=== PATIENT | female | born 1935 | race Caucasian/White ===

== ENCOUNTER 2017-08-27 13:18 | Inpatient (IN) | payer OTHER, MEDICARE ==
--- NOTE | 2017-08-27 13:56 | SOAPPROG ---
BREA Progress Note Assessment/Plan: Assessment: Plan: 08/27/17 13:54 symptomatic anemia, hgb 6.8, Stent placed 1 month ago. Will admit for obs, for transfusion of 2 units prbc's RLE Venous doppler performed in office with did not show RLE DVT. Eliquis will be stopped. Continue ASA and Plavix in place of Brilinta Subjective: Patient reported melena on visit 2 days ago. This had been going on for 2 weeks (estimated). She has been on ASA 81 mg, Brilinta 90 mg BID and Eliquis. Eliquis held, no further melena in 24 hours, but near syncope and SOB. Hgb 6.8 Stent placed in late Jun/early Jul of this year Objective: Pale pleasant patient nearly collapsed in office this am. ICD10 Worksheet Patient Problems: Problems Problem Status Onset Symptomatic anemia Acute - ICD10 Problem Qualifiers (1) Symptomatic anemia
[2017-08-27] MEDS ORDERED: ONDANSETRON DISINTEGRATING 4 MG TAB PO PRN (13:58)
[2017-08-27] MEDS ORDERED: ACETAMINOPHEN 325 MG TAB PO PRN (13:58)
[2017-08-27] MEDS ORDERED: ONDANSETRON 4 MG/2 ML VIAL IVP PRN (13:58)
[2017-08-27] MEDS ORDERED: NS 1,000 ML IV SCH (14:00)
[2017-08-27 15:59] LABS: INR 1.19 (0.83-1.16); PROTIME(PATIENT) 15.3 SEC (12.0-15.0)
--- NOTE | 2017-08-27 16:01 | CPEKG ---
Heart Rate: 95 RR Interval: 632 P-R Interval: 140 QRSD Interval: 122 QT Interval: 408 QTC Interval: 513 P Ravenel: 70 QRS Ravenel: 92 T Wave Ravenel: -49 EKG Severity - ABNORMAL ECG - EKG Impression: SINUS RHYTHM EKG Impression: LEFT BUNDLE BRANCH BLOCK Electronically Signed By: Jay Narayanan 27-Aug-2017 16:18:15
--- NOTE | 2017-08-27 19:12 | GHP ---
[f rep st] HISTORY AND PHYSICAL DATE OF ADMISSION: 08/27/2017 REASON FOR ADMISSION: Symptomatic anemia. HISTORY OF PRESENT ILLNESS: The patient is a 81-year-old female who presented to the office on with some sense of shortness of breath and black stool. A CBC was checked finding a hemoglobin of 7.2. She has been on aspirin and Brilinta due to recent stent placement approximately 1 month ago an d was put on Eliquis for suspected possible DVT involving her right lower extremity due to complicate d hospitalization while in [place]. She has come back to the [facility] to reacclimate to altitude prior to going home in [place] over t he next couple of days. Given her low hemoglobin, she was brought back into the office today. She d oes admit to shortness of breath and lightheadedness with standing. No chest pain or palpitations. She denies abdominal pain. She does have a long history of some level of reflux with prior history o f endoscopies. She has not had a black stool in the past 24 hours, but she has not had a bowel movem ent in that same period of time. She admits to a reduced appetite. She has no unusual food cravings . No unusual food aversions. Edema in her lower extremities has remained to be mild. She has no di screte right lower extremity pain. PAST MEDICAL HISTORY: Significant for stent placement either late June or early July of this year. She has been on aspirin and Brilinta for prevention of intrastent stenosis. Underlying athero sclerosis. A long history of some level of reflux symptomatology. Sleep apnea on CPAP therapy. ALLERGIES: No known drug allergies. CURRENT MEDICATIONS: Aspirin 81 mg daily, Brilinta 90 mg b.i.d., Niaspan 500 mg 2 tablets daily, vit edmondson D daily, Co Q10 daily, fish oil 3 capsules daily, aspirin mentioned above, K2 100 mcg daily, gar lic extract 600 mg capsules twice daily, Eliquis until yesterday was 2.5 twice a day. SURGICAL HISTORY: Recent stent placement, prior left ACL replacement, nothing else more recently. FAMILY HISTORY: Father from heart disease. SOCIAL HISTORY: Nonsmoker, nondrinker. Recent travel. Significant other travels with her. ALLERGIES: No known drug allergies. PHYSICAL EXAMINATION: VITAL SIGNS: Blood pressure 104/50, heart rate 95, saturation 91% on room air . Respiratory rate 16-20. GENERAL: Pleasant, pale female, somewhat hard of hearing. Palpebral con junctiva is pale. Oropharynx is benign. NECK: Without masses. LUNGS: Are clear bilaterally. No crackles, wheeze or congestion. HEART: Borderline tachy rhythm with 3/6 systolic murmur. ABDOMEN: Positive bowel sounds. Soft. Mild discomfort in the epigastric region. No guarding, rebound, or m asses. RECTAL: Exam is not performed. LOWER EXTREMITIES: Trace to 1+ edema right lower extremity. Slightly less edema left lower extremity. In office venous Doppler was performed which did not identify any evidence of right lower extremity c lotting phenomenon. Repeat hemoglobin was checked stat which was 6.8. Patient had a near syncopal e pisode while attempting to walk in the office from office exam room to the lab. ASSESSMENT: 1. Symptomatic anemia. Hemoglobin 6.8 in this 81-year-old female with a recent stent placement on m andatory anticoagulants. Will admit. Will transfuse 2 units packed red blood cells. Recheck CBC in the morning. 2. Recent stent placement. Continue aspirin and Plavix in lieu of the Brilinta given cost and she i s more than 1 month out from stent placement. 3. Some concern over possible thromboembolic evidence. She had a CTA of her chest at the [facility] which did not identify a clot. She had a DVT screening in our office today which did not i dentify clot. We will discontinue Eliquis at this point. 4. Reflux symptomatology. Will utilize b.i.d. proton pump inhibitor therapy. We will see how patisherri membreno feels in the morning and adjust therapy based on her results. /[id number]/MODL
[2017-08-27] MEDS: NIACIN ER 500 MG TAB.ER PO SCH (20:47)
[2017-08-27] MEDS: METOPROLOL SUCCINATE XR 25 MG TAB PO SCH (20:47)
[2017-08-27] MEDS: PANTOPRAZOLE SODIUM 40 MG TAB PO SCH (20:49)
[2017-08-28 05:42] LABS: PLATELET COUNT 254 10^3/uL (150-400)
[2017-08-28] MEDS: CLOPIDOGREL BISULFATE 75 MG TAB PO SCH (08:24)
[2017-08-28] MEDS: NIACIN ER 500 MG TAB.ER PO SCH ×2 (08:24→20:15)
[2017-08-28] MEDS: ASPIRIN 81 MG CHEWABLE TAB PO SCH (08:24)
[2017-08-28] MEDS: PANTOPRAZOLE SODIUM 40 MG TAB PO SCH ×3 (08:24→20:14)
[2017-08-28] MEDS: METOPROLOL SUCCINATE XR 25 MG TAB PO SCH ×3 (08:24→20:15)
[2017-08-28] MEDS: OMEGA-3 FATTY ACIDS 1,000 MG CAP PO SCH (08:24)
[2017-08-28] MEDS ORDERED: FUROSEMIDE 40 MG TAB PO ONE (08:50)
[2017-08-28] MEDS ORDERED: Herbals/Supplements -Info Only PO SCH (09:00)
--- NOTE | 2017-08-28 09:21 | SOAPPROG ---
BREA Progress Note Assessment/Plan: Assessment: Plan: 08/27/17 13:54 symptomatic anemia, hgb 6.8, Stent placed 1 month ago. Will admit for obs, for transfusion of 2 units prbc's RLE Venous doppler performed in office with did not show RLE DVT. Eliquis will be stopped. Continue ASA and Plavix in place of Brilinta 08/28/17 09:20 symptomatic anemia--anemia corrected but patient does not feel better. Will expand work up. Echo, labs, further eval when results are available. Subjective: Carol is more short of breath despite her hgb improving. She is uncomfortable with breathing and feels a bit tense. She admits to some chest pressure with breathing. No new GI complaints. 2 BM's, she is not sure if that were black. No gut pain, appetite remains to be reduced. Objective: Vital Signs Temp Pulse Resp BP Pulse Ox 36.6 C 105 H 20 128/64 H 95 08/28/17 08:29 08/28/17 08:29 08/28/17 08:29 08/28/17 08:29 08/28/17 08:54 Laboratory Results 08/28/17 05:21 08/27/17 08/28/17 08/29/17 05:59 05:59 05:59 Intake Total 1150 Balance 1150 PT 15.3 SEC (12.0-15.0) H 08/27/17 15:35 INR 1.19 (0.83-1.16) H 08/27/17 15:35 Gen: pleasant, mildly uncomfortable HEENT: no JVPE Lungs: mild basilar crackles, dry cough Heart: Tachy rate around 100 3/6 JEAN MARIE--stable Abd + bs soft no gross masses LE's stable mild edema Hgb 6.8 to 10 after 2 untis PRBC's ICD10 Worksheet Patient Problems: Problems Problem Status Onset Symptomatic anemia Acute - ICD10 Problem Qualifiers (1) Symptomatic anemia
[2017-08-28] MEDS: ATORVASTATIN CALCIUM 20 MG TAB PO SCH (11:22)
--- NOTE | 2017-08-28 13:23 | ECHO ---
[email or web address] [address] [address] Main: [phone] Fax: Transthoracic Echocardiogram Name: FERMIN ALFARO MR#: [id number] Study Date: 08/28/2017 Study Time: 11:01 AM Date of : 1935 Age: 81 year(s) Height: 154.9 cm (61 in.) Weight: 79.38 kg (175 lb.) BSA: 1.78 m2 Gender: Female Examination: Echo Indication: Shortness of breath, Coronary artery disease, recent stent, 3/6 JEAN MARIE Image Quality: Adequate Contrast: Requested by: Edward Jay Jay BP: 128 mmHg/64 mmHg Heart Rate: Rhythm: Normal sinus rhythm Indication: Shortness of breath, Coronary artery disease, recent stent, 3/6 JEAN MARIE Procedure Staff Property Technician: Milena Hines RDCS Reading Physician: Alexis Butt MD Requesting Provider: Conclusions: Normal size left ventricle. Mild concentric LV hypertrophy. Normal global systolic LV function. EF is 65 %. Grade 2 diastolic dysfunction (pseudonormalized LV filling pattern). Elevated left ventricular filling pressures.. The left atrium is mildly dilated. Moderate mitral valve leaflet calcification is present. Severe mitral annular calcification. Moderate mitral valve regurgitation is present. Severe mitral valve stenosis is present. Moderate aortic cusp calcification is present. Mild aortic valve regurgitation is present. Moderate calcific aortic valve stenosis. Mean aortic valve gradient 20. Severe tricuspid regurgitation is present. Right ventricular systolic pressure measures 70mmHg. Measurements: Chambers Valvular Assessment AV/MV Valvular Assessment TV/PV Normal Normal Normal Name Value Range Name Value Range Name Value Range IVSd (2D): 1.1 cm (0.6 cm-1.1 AV Vmax: 2.73 m/s (1 m/s-1.7 TR Vmax: 3.88 mm/s ( - ) cm) m/s) TR PGmax: 60 mmHg ( - ) LVDd (2D): 3.9 cm (3.9 cm-5.3 AV maxP mmHg ( - ) syst. PAP: 70 mmHg ( - ) cm) AV meanP mmHg ( - ) PV Vmax: 0.65 m/s (0.6 m/s-0.9 LVDs (2D): 2.9 cm (2.1 cm-4 LVOT Vmax: 0.98 m/s (0.7 m/s-1.1 m/s) cm) m/s) PV PGmax: 2 mmHg ( - ) LVPWd (2D): 1.1 cm ( - ) JC (Vmax): 1.1 cm2 ( - ) Patient: FERMIN ALFARO Study Date: 08/28/2017 Page 1 of 2 11:01 AM LVOTd 2.0 cm 2.0 cm mm JC (VTI): 1.2 cm ( - ) LVEF (BP): 65 % (>=55 %) AR (PHT): 326 ms ( - ) RVDd(2D): 3.5 cm (1.9 cm-3.8 MV maxP mmHg ( - ) cmmm) MV meanP mmHg ( - ) MV PHT: 0.062 s ( - ) MVA (Vmax): 1.5 m/s ( - ) MVA (PHT): 3.5 s ( - ) Continued Measurements: Chambers Valvular Assessment AV/MV Valvular Assessment TV/PV Name Value Name Value Name Value LADs Lon.7 cm MV VTI: 47.70 cm CVP (est.): 10 mmHg LA Area: 21.1 cm2 LA Volume: 71 ml LA Volume Index: 39.9 ml/m2 TAPSE: 2.2 cm RA Area: 14.0 cm2 Findings: Left Ventricle: Normal size left ventricle. Mild concentric LV hypertrophy. Normal global systolic LV function. EF is 65 %. There is paradoxic septal motion suggestive of bundle branch block, paced cardiac rhythm, or prior cardiac surgery. Grade 2 diastolic dysfunction (pseudonormalized LV filling pattern). Elevated left ventricular filling pressures.. Right Ventricle: Normal size right ventricle. Normal RV function. Left Atrium: The left atrium is mildly dilated. Right Atrium: The right atrium is normal in size. Mitral Valve: Moderate mitral valve leaflet calcification is present. Severe mitral annular calcification. There is moderate thickening of the mitral valve leaflets. Moderate mitral valve regurgitation is present.Severe mitral valve stenosis is present. Mean mitral valve gradient 11mmHg. Aortic Valve: Aortic valve is not well visualized. Moderate aortic cusp calcification is present. Mild aortic valve regurgitation is present. Moderate calcific aortic valve stenosis. Mean aortic valve gradient 20. Tricuspid Valve: The tricuspid valve is normal in appearance and function. Severe tricuspid regurgitation is present. Right ventricular systolic pressure measures 70mmHg. The pulmonary artery pressure is severely increased. Pulmonic Valve: The pulmonic valve is normal in appearance and function. Mild pulmonic valve regurgitation is noted. Pericardium: No pericardial effusion. (No Signature Object) Patient: FERMIN ALFARO Study Date: 08/28/2017 Page 2 of 2 11:01 AM [id number]
--- NOTE | 2017-08-28 15:23 | PDMN ---
Medical Necessity Medical necessity: Change to IP, as of 08/28/17, per PA; los >2 mn for ongoing management of symptomatic anemia possibly r/t issue w/valve; admit for further workup/monitoring; hx recent stent placement; per progress note & order 08/28/17
--- NOTE | 2017-08-28 16:13 | ASMTCMCOM ---
CM Note CM Note Notes: Pt admitted for low hemoblin. Anticipate pt will have no DC needs. CM available if needs change, Date Signed: 08/28/2017 04:12 PM Electronically Signed By:Edelmira Soto LCSW
[2017-08-28] MEDS: LISINOPRIL 2.5 MG TAB PO SCH (19:29)
[2017-08-28] MEDS: SPIRONOLACTONE 25 MG TAB PO SCH (19:30)
[2017-08-29 05:08] LABS: PLATELET COUNT 242 10^3/uL (150-400)
[2017-08-29] MEDS: METOPROLOL SUCCINATE XR 25 MG TAB PO SCH ×2 (08:28→21:37)
[2017-08-29] MEDS: CLOPIDOGREL BISULFATE 75 MG TAB PO SCH (08:29)
[2017-08-29] MEDS: SPIRONOLACTONE 25 MG TAB PO SCH (08:29)
[2017-08-29] MEDS: ATORVASTATIN CALCIUM 20 MG TAB PO SCH (08:29)
[2017-08-29] MEDS: PANTOPRAZOLE SODIUM 40 MG TAB PO SCH ×2 (08:29→21:38)
[2017-08-29] MEDS: NIACIN ER 500 MG TAB.ER PO SCH ×2 (08:29→21:38)
[2017-08-29] MEDS: LISINOPRIL 2.5 MG TAB PO SCH (08:29)
[2017-08-29] MEDS: OMEGA-3 FATTY ACIDS 1,000 MG CAP PO SCH (08:29)
[2017-08-29] MEDS: ASPIRIN 81 MG CHEWABLE TAB PO SCH (08:29)
--- NOTE | 2017-08-29 09:31 | SOAPPROG ---
BREA Progress Note Assessment/Plan: Assessment: Cardiology consultation performed and dictated. See dictation for full thoughts. 81 y/o woman with longstanding heart murmur. Hospitalized in [place] in Jun 2017 and reportedly got stent to LAD and started on ASA and Brilinta. Admitted 36hrs ago with melena and UGI bleed. Now after some PRBCs feeling better. Chronically has MOON at one block. Echo here shows LVEF 65% with moderate diastolic dysfunction, moderate , mild AI, severe MS, moderate MR and severe TR. 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 I wonder if her chronic MOON at one block is related to her valvular issues. REC: 1)start Lasix 20mg PO qam. 2)rest of meds without changes. 3)consider GI consult this hospitalization with repeat EGD endoscopy. 4)I would recommend rechecking echo in 5-6 weeks after GI bleed settles down and if still severe MS, consider CT surgery consult for considering of BIOAVR, BIOMVR and TV repair in 2-3 months electively. 5)get records from [facility] to see cath report and any echos done there. Thanks. Will follow with you. 08/29/17 09:26 Objective: Vital Signs Temp Pulse Resp BP Pulse Ox 36.8 C 101 H 16 122/77 H 96 08/29/17 08:00 08/29/17 08:28 08/29/17 08:00 08/29/17 08:29 08/29/17 08:00 Laboratory Results 08/29/17 04:37 08/29/17 04:37 08/28/17 08/29/17 08/30/17 05:59 05:59 05:59 Intake Total 1150 725 Output Total 1250 Balance 1150 -525 PT 15.3 SEC (12.0-15.0) H 08/27/17 15:35 INR 1.19 (0.83-1.16) H 08/27/17 15:35 ICD10 Worksheet Patient Problems: Problems Problem Status Onset Symptomatic anemia Acute
--- NOTE | 2017-08-29 10:04 | GCON ---
[f rep st] CONSULTATION CARDIOLOGY CONSULTATION DATE OF CONSULTATION: 08/29/2017 REASON FOR CONSULTATION: Evaluate woman with recent stent to the LAD and echo showing triple valve d ysfunction in setting of upper GI bleed. HISTORY OF PRESENT ILLNESS: I was asked by Dr. Job Cheng to consult for the above reasons. The patient is a 81-year-old woman who lives half the year in [place], [place] and half the year in [facility]. She reports she has known about a heart murmur for many years, but had no cardiac problems until June of this year while living in [place], came in with pneumonia, but then was found to have a n on-Q-wave LA and got a stent to her LAD. No other information regarding that hospitalization is know n. She was started on aspirin and Brilinta and came back to [place] and was admitted 36 hours ago w ith near-syncope and paleness and an upper GI bleed after several days of melena. An echo here in [facility] demonstrates an LVEF of 65% with moderate diastolic dysfunction with moderate aortic steno sis and mild aortic insufficiency. She has severe mitral stenosis with moderate mitral regurgitation and severe tricuspid insufficiency with a PFO noted an estimated PA pressure of 70 mmHg. She denies any knowledge of having rheumatic fever as a young woman. Chronically, she can walk about a block b efore becoming short of breath. She reports no palpitations or chest pain. She has had 1 non black bowel movement the last 24 hours and is feeling better. PAST MEDICAL HISTORY: Coronary artery disease with LAD stent in June of 2017 in [place]. GERD. S leep apnea. Previous remote non-Hodgkin's lymphoma with neck mass removed and radiation only to her neck and newly diagnosed multivalvular abnormalities as per HPI. PAST SURGICAL HISTORY: Knee replacement. CURRENT MEDICATIONS: Aspirin 81 mg per day, Plavix 75 mg per day, atorvastatin 20 mg per day, lisino pril 2.5 mg per day, metoprolol-XL 25 mg twice daily, Aldactone 25 mg per day, 1 dose of Lasix 40 mg p.o. ALLERGIES: No known drug allergies. SOCIAL HISTORY: Patient lives with her significant other in [place] and [place], [place]. She denie s tobacco use or active alcohol intake. FAMILY HISTORY: Positive for premature coronary artery disease. REVIEW OF SYSTEMS: The patient reports no hemoptysis or fevers or chills. She has no syncope. Rest of 10-point review of systems is negative. PHYSICAL EXAMINATION: VITAL SIGNS: Afebrile, pulse 100, blood pressure 122/77, respirations 22, weig ht 79.7 kg. GENERAL: In general a normal-appearing woman in no acute distress without chest pain or using excess respiratory muscles. EYES: Pupils equal and reactive to light. ENT: Oral mucosa with no cyanosis. NECK: Jugular venous pressure to 8 cm. Carotid pulses 2+ bilaterally with no obvious bruit s. LUNGS: Clear to auscultation bilaterally without rales, rhonchi, or wheezing. HEART: Slightly tachycardic. Normal rhythm, 2/6 systolic murmur. No S3 is heard. ABDOMINAL EXAM: Soft and nontender . No guarding or rebound. EXTREMITIES: Trace pretibial edema bilaterally. MUSCULOSKELETAL: No scolio sis. SKIN: No bleeding or cyanosis. NECK: No nuchal rigidity. NEURO: Normal affect and mood. DIAGNOSTIC STUDIES: Normal sinus rhythm with left bundle branch block. LABORATORY STUDIES: White count 8.0, hematocrit 29, platelets 242,000, MCV 97. Sodium 142, potassiu m 4.2, chloride 106, bicarb 28, BUN 15, creatinine 0.8, glucose 95. NT proBNP level 524. Troponin n egative. INR 1.19. IMPRESSION: 81-year-old woman with clinically resolving upper gastrointestinal bleed, probably secon travis to the addition of Brilinta and aspirin. She does have severe mitral stenosis and moderate aort ic stenosis and severe tricuspid insufficiency. She appears euvolemic, however, and not having recur rent angina. RECOMMENDATIONS: 1. Would start Lasix 20 mg per day. 2. Rest of medications without change. 3. Consider GI consult with repeat EGD endoscopy this hospitalization. 4. Ideally, I would like to let her go home and get an echo in 5 to 6 weeks and reassess her LV func tion and valvular function not in the setting of hypovolemia and GI bleed. If she does still have si gnificant MS and TR, would in the next 6 to 7 weeks have her see a heart surgeon for consideration of bioprosthetic AVR, bioprosthetic MVR and tricuspid valve repair. 5. Would get records from her [place] hospitalization to better see what they did. Thank you for allowing me to participate in the care of Ms. Carol Goyal. Cardiology will follow a long closely with you during this hospitalization. /[id number]/MODL
[2017-08-29] MEDS: FUROSEMIDE 20 MG TAB PO SCH (10:17)
--- NOTE | 2017-08-29 11:27 | SOAPPROG ---
BREA Progress Note Assessment/Plan: Assessment: Plan: 08/29/17 11:29 Anemia: likey related to UGI bleed. Has upper endoscopy about every 2 years due to reflux. Last one about a year ago, normal per pt. Given decrease in her hgb despite protonix 40mg bid and diuresis with negative fluid balance, will ask GI to see her. CAD: stable, s/p stent about a month ago. Valvular heart disease: May be source of MOON, and is currently doing much better following diuresis. BNP only mildly elevated. Cardiology would prefer to reassess echo after pt stable from GI bleed. As she is symptomatically much improved, this seems reasonable. Subjective: Feeling much better today. Has been ambulating around the unit without SOB. Denies any further melena, but hasn't been looking closely. Hgb down to 9.2 today, following transfusion with initial increase to 10. Had echo yesterday due to ongoing sx and has significant valvular disease. Has been seen by cardiology; appreciate cardiology input. Objective: Vital Signs Temp Pulse Resp BP Pulse Ox 36.8 C 101 H 16 122/77 H 96 08/29/17 08:00 08/29/17 08:28 08/29/17 08:00 08/29/17 08:29 08/29/17 08:00 Laboratory Results 08/29/17 04:37 08/29/17 04:37 08/28/17 08/29/17 08/30/17 05:59 05:59 05:59 Intake Total 1150 725 Output Total 1250 Balance 1150 -525 PT 15.3 SEC (12.0-15.0) H 08/27/17 15:35 INR 1.19 (0.83-1.16) H 08/27/17 15:35 General: comfortable appearing, NAD Lungs: clear bilaterally CV: RRR with 2/6 systolic murmur Abdomen: +bowel sounds, soft, NT Extremities: 1-2+ pitting edema ICD10 Worksheet Patient Problems: Problems Problem Status Onset Symptomatic anemia Acute
--- NOTE | 2017-08-29 13:34 | GCON ---
[f rep st] CONSULTATION INPATIENT CONSULTATION NOTE. REQUESTING PHYSICIAN: Nayeli Arenas MD REASON FOR CONSULTATION: Melena and anemia. CHIEF COMPLAINT: Fatigue. HISTORY OF PRESENT ILLNESS: Briefly, Ms Goyal is a 81-year-old female with multiple medical problems including heart disease, heart failure, and valvular disease, who presented to the hospital on 08/27/2017 with symptomatic anemia. She was recently traveling in [place]. She reports she spent multiple days in multiple hospitals there working up symptoms. While traveling back to [place] , she described having multiple black bowel movements. Having described this to her primary care physician, she was asked to present to the emergency room for evaluation. In the ER, she was noted to have a fall in hematocrit and hemoglobin. This was accompanied by shortness of breath. She was admitted for management of symptomatic anemia and exacerbation of heart failure. Of note, prior to admission, she had been on aspirin as well as Brilinta and Eliquis for possible DVT complications of hospitalization in [place]. She reports no prior history of bleeding. She denies rectal bleeding. She reports prior history of melena. She believes she has had previous upper endoscopies to evaluate heartburn symptoms. She cannot recall when her last colonoscopy was, but she does not recall a history of cancer or polyps. Since being admitted to the hospital, she reports her bowel movements remain dark, but they are becoming more normal in color. With heart failure management, and transfusion, she reports that she has had improvement in her overall well- being. She is now ambulating without a significant amount of shortness of breath. PAST MEDICAL HISTORY: Includes cardiac stent, reflux, and sleep apnea for which she is on CPAP, as well as valvular heart disease. ALLERGIES: None. OUTPATIENT MEDICINES: Aspirin, Brilinta, Niaspan, Garlic, and Eliquis. PAST SURGICAL HISTORY: Includes cardiac stent placement and ACL repair. FAMILY HISTORY: Positive for heart disease. SOCIAL HISTORY: She does not drink or smoke. REVIEW OF SYSTEMS: A complete 10-point review of systems was undertaken with the patient and is negative except for the details described in the History of Present Illness. PHYSICAL EXAMINATION: GENERAL: This is an elderly female in no apparent distress. HEENT: Pupils are equal, round, AND reactive to light and accommodation. Sclerae nonicteric. Oropharynx is clear. NECK: Supple without lymphadenopathy. HEART: Regular with a 3/6 systolic murmur. ABDOMEN: Soft and nontender, with normoactive bowel sounds. LUNGS: clear to auscultation, bilateral rales inferiorly. EXTREMITIES: Free of cyanosis, clubbing. 1 to 2+ pitting edema bilaterally. NEUROLOGIC: Grossly nonfocal. PSYCH: Normal mood and affect. SKIN: Warm and dry without rash. LABORATORY TESTING: Hemoglobin of 9.2, hematocrit of 28.8, platelet count of 242. INR on admission was 1.2. Today, sodium of 142, potassium of 4.2, chloride of 106, bicarb of 28, BUN of 15, creatinine of 0.8. IMPRESSION AND RECOMMENDATIONS: The patient has had symptomatic anemia and melena in the setting of anticoagulation use. She had the onset of dark stools perhaps as long as 7-14 days ago. Her stools are now clearing. She is responding to anemia therapy with transfusion in accompaniment with congestive heart failure therapy and diuresis. The etiology for bleeding is uncertain. Given the melena, I suspect upper gastrointestinal source, such as gastric ulcer, or perhaps small bowel arteriovenous malformation. Colonic lesions are also possible. Given the severity of her bleeding presentation, resolving this differential diagnosis is important in order to help prevent subsequent future bleeding. At this time, I recommend she undergo upper endoscopy. She will be at high risk for conscious sedation, given her ongoing heart failure, obesity, anti- platelet use, and valvular heart disease. Will engage the services of the anesthesiologist to help with this procedure. If her upper endoscopy is negative, we may need to proceed with colonoscopy. Small bowel evaluation could ultimately be useful, as well, in the evaluation of obscure GI bleeding. Meanwhile, the patient should remain off anticoagulation therapy. In the setting of severe heart disease, it is okay for her to continue her anti- platelet therapies with aspirin and Plavix. While those therapies may increase the risk of interventions during gastrointestinal procedures, the relative risk of discontinuing those therapies in the setting of heart disease is not warranted. /[id number]/MODL MTDD
[2017-08-30 04:55] LABS: PLATELET COUNT 228 10^3/uL (150-400)
[2017-08-30] MEDS: LISINOPRIL 2.5 MG TAB PO SCH (08:57)
[2017-08-30] MEDS: METOPROLOL SUCCINATE XR 25 MG TAB PO SCH ×2 (08:57→22:41)
--- NOTE | 2017-08-30 08:59 | SOAPPROG ---
BREA Progress Note Assessment/Plan: Assessment: 81 y/o woman with longstanding heart murmur. Hospitalized in [place] in Jun 2017 and reportedly got stent to LAD and started on ASA and Brilinta. Admitted 36hrs ago with melena and UGI bleed. Now after some PRBCs feeling better. Chronically has MOON at one block. Echo here shows LVEF 65% with moderate diastolic dysfunction, moderate , mild AI, severe MS, moderate MR and severe TR. 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 I wonder if her chronic MOON at one block is related to her valvular issues. REC: 1)stop Lisinopril as some lowish BP's 2)rest of cardiac meds without changes. 3)EGD +/- colonoscopy today. 4)Probably home later tonight or tomorrow. 5)f/u [facility] in 5-6 weeks with echo same day to reassess LVEF, RVEF and vavular lesions. Consider CT surgery consultation for AVR, MVR and TV repair in 6-8 weeks after UGIB fully resolved. We'll call pt to arrange follow up. 08/30/17 08:56 Subjective: doing well with no cardiac complaints. Denies CP, palpitations, near syncope or PND. Ambulated two laps around nursing floor (300ft) without sx. 2-3 non- melenic bowel movts last 24hrs she reports. No abdominal pain. Objective: Vital Signs Temp Pulse Resp BP Pulse Ox 36.6 C 102 H 16 116/59 L 95 08/30/17 08:50 08/30/17 08:50 08/30/17 08:50 08/30/17 08:50 08/30/17 08:50 Laboratory Results 08/30/17 04:16 08/29/17 04:37 08/29/17 08/30/17 08/31/17 05:59 05:59 05:59 Intake Total 725 1050 Output Total 1250 450 100 Balance -525 600 -100 PT 15.3 SEC (12.0-15.0) H 08/27/17 15:35 INR 1.19 (0.83-1.16) H 08/27/17 15:35 Physical Exam - Physical Exam General Appearance: alert EENT: PERRL/EOMI Neck: non-tender Respiratory: lungs clear Cardiac/Chest: regular rate, rhythm, systolic murmur (3/6 JEAN MARIE. Loud P2 heard. No S3 heard.) Peripheral Pulses: 2+: carotid (R), carotid (L), femoral (R), femoral (L), dorsalis-pedis (R), dorsalis-pedis (L) Abdomen: non-tender, No rebound Skin: warm/dry Extremities: non-tender, No pedal edema Neuro/Psych: alert ICD10 Worksheet Patient Problems: Problems Problem Status Onset Symptomatic anemia Acute
--- NOTE | 2017-08-30 10:12 | SUROPNOTE ---
[facility] Operative Report - Surgery BRIEF GI EGD NOTE see full EGD report for details of exam Indication: melena, anemia Meds: per anesthesia Complications: none acutely Findings: 1. Esophagus - normal 2. Gastric - minimal gastritis 3. Duodenal - normal IMPRESSION/RECS: 1. Obscure GI bleeding - resolved - EGD showed no source of bleeding - need to resolve bleeding source prior to contemplating aggressive cardiac care [with possible anticoagulation need] - given EGD was without obvious bleeding source, recommend colonoscopy, and if negative, capsule endoscopy - clear liquids today, prep for colonoscopy tomorrow - if colonoscopy normal, can proceed with outpt capsule endoscopy - monitor H/H - will follow, call with questions
--- NOTE | 2017-08-30 10:12 | PDANEPAE ---
ANE History of Present Illness here for EGD ANE Past Medical History - Cardiovascular History Hx Chest Pain: Yes Hx Coronary Artery / Peripheral Vascular Disease: Yes Hx CHF / Valvular Disease: Yes - Pulmonary History Hx Oxygen in Use at Home: Yes O2 in Use at Home (L/minute): 2-4 Hx Sleep Apnea: Yes Sleep Apnea Screening Result - Last Documented: Positive - Endocrine History Hx Diabetes: No ANE Review of Systems Review of Systems: - Exercise capacity Exercise capacity: >=4 METS - Cardio Pulmonary Function Testing Transthoracic echocardiogram (TTE): 08/2017- EF 65% Mild MR, moderate /AR, severe TR ANE Patient History - Allergies Allergies/Adverse Reactions: No Known Allergies Allergy (Unverified 08/27/17 13:58) - Home Medications Home Medications: Aspirin [Aspirin 81mg (*)] 81 mg PO DAILY 08/27/17 [Last Taken Unknown] Clopidogrel Bisulfate [Plavix (*)] 75 mg PO DAILY 08/27/17 [Last Taken Unknown] Herbals/Supplements -Info Only 1 ea PO DAILY 08/27/17 [Last Taken Unknown] Metoprolol Succinate 12.5 mg PO BID 08/27/17 [Last Taken Unknown] Niacin ER [Niaspan 500 mg (*)] 500 mg PO BID 08/27/17 [Last Taken Unknown] [place]-3 Fatty Acids [Fish Oil 1000 mg (*)] 1,000 mg PO DAILY 08/27/17 [Last Taken Unknown] Omeprazole 20 mg PO DAILY 08/27/17 [Last Taken Unknown] - NPO status NPO Status: no food or drink >8 hours NPO Since - Liquids (Date): 08/30/17 NPO Since - Liquids (Time): 00:00 NPO Since - Solids (Date): 08/29/17 NPO Since - Solids (Time): 18:00 - Anes Hx Anes Hx: no prior problems - Smoking Hx Smoking Status: Former smoker - Alcohol Use Alcohol Use: Occasionally - Family Anes Hx Family Anes Hx: none ANE Labs/Vital Signs - Labs Result Diagrams: 08/30/17 04:16 08/29/17 04:37 - Vital Signs Blood Pressure: 100/50 Heart Rate: 94 Respiratory Rate: 16 O2 Sat (%): 94 Height: 156.21 cm Weight: 79.7 kg ANE Physical Exam - Airway Neck exam: FROM Mallampati Score: Class 2 Mouth exam: normal dental/mouth exam - Pulmonary Pulmonary: no respiratory distress, clear to auscultation - Cardiovascular Cardiovascular: regular rate and rhythym, no murmur, rub, or gallop - ASA Status ASA Status: III ANE Anesthesia Plan Anesthesia Plan: GA with mask
[2017-08-30] MEDS ORDERED: PROPOFOL/EMULSION 500 MG/50 ML BOTTLE IV ONE (10:20)
[2017-08-30] MEDS ORDERED: PEG 3350/NA SULF,BICARB,CL/KCL (GAVILYTE-G) 4000 ML BTL PO ONE ×2 (10:38→13:45)
--- NOTE | 2017-08-30 10:38 | GIREPORT ---
[facility] - Endoscopy Department Patient Name: Carol Goyal Procedure Date: 08/30/2017 9:29 AM Patient Type: Inpatient Attending MD/ ER Physician: Haleigh Vuong MD Procedure: Upper GI endoscopy Indications: Acute post hemorrhagic anemia, Melena Providers: Haleigh Vuong MD Medicines: Sedation Administered by an Anesthesia Professional Complications: No immediate complications. Description of Procedure: After obtaining informed consent, the endoscope was passed under direct vision. Throughout the procedure, the patient's blood pressure, pulse, and oxygen saturations were monitored continuously. The Endoscope was intro duced through the mouth, and advanced to the third part of duodenum. The uppe r GI endoscopy was accomplished without difficulty. The patient tolerated th e procedure well. Findings: The examined esophagus was normal. Diffuse minimal inflammation characterized by congestion (edema) and erythema was found in the gastric antrum. The examined duodenum was normal. Estimated blood loss: none. Estimated Blood Loss: Estimated blood loss: none. Post Op Diagnosis: - Normal esophagus. - Gastritis. - Normal examined duodenum. - No specimens collected. Recommendation: - Perform a colonoscopy tomorrow. - No source of acute GI blood loss noted. Attending Participation: I personally performed the entire procedure. Haleigh Vuogn MD Haleigh Vuong MD 08/30/2017 10:38:01 AM This report has been signed electronicallyDaus MD Yevgeniy Number of Addenda: 0 Note Initiated On: 08/30/2017 9:29 AM [email or web address]
[2017-08-30] MEDS ORDERED: ACETAMINOPHEN 500 MG TAB PO PRN (10:41)
[2017-08-30] MEDS ORDERED: NALOXONE HCL 0.4 MG/ML INJ IVP PRN (10:41)
--- NOTE | 2017-08-30 10:41 | POSTANESTH ---
Post Anesthetic Evaluation Cardiovascular Status: Normal, Stable, Similar to Pre-Op Cond Respiratory Status: Normal, Stable, Similar to Pre-op Cond. Level of Consciousness/Mental Status: Can Participate in Eval, Mildly Sleepy, Arousable Pain Control: Adequate, Prn Tx Ordered Nausea/Vomiting Control: Adequate, Prn Tx Ordered Complications Possibly Related to Anesthesia: None Noted
[2017-08-30] MEDS: ASPIRIN 81 MG CHEWABLE TAB PO SCH (11:40)
[2017-08-30] MEDS: OMEGA-3 FATTY ACIDS 1,000 MG CAP PO SCH (11:42)
[2017-08-30] MEDS: SPIRONOLACTONE 25 MG TAB PO SCH (11:42)
[2017-08-30] MEDS: CLOPIDOGREL BISULFATE 75 MG TAB PO SCH (11:42)
[2017-08-30] MEDS: NIACIN ER 500 MG TAB.ER PO SCH ×2 (11:42→22:43)
[2017-08-30] MEDS: ATORVASTATIN CALCIUM 20 MG TAB PO SCH (11:42)
[2017-08-30] MEDS: PANTOPRAZOLE SODIUM 40 MG TAB PO SCH ×2 (11:43→22:43)
[2017-08-30] MEDS: FUROSEMIDE 20 MG TAB PO SCH (11:43)
--- NOTE | 2017-08-30 12:05 | ASMTCMCOM ---
CM Note CM Note Notes: Chart reviewed for discharge planning purposes, she underwent endoscopy this am to assess for cause of anemia.. No significant findings. If agreeable, she will be prepped for colonoscopy tomorrow. No therapies ordered. Needs to be determined. Normally resides in [place]. CM to follow. Date Signed: 08/30/2017 12:04 PM Electronically Signed By:Genia Kendall RN
--- NOTE | 2017-08-30 13:51 | SOAPPROG ---
BREA Progress Note Assessment/Plan: Assessment: Plan: 08/29/17 11:29 Anemia: likey related to UGI bleed. Has upper endoscopy about every 2 years due to reflux. Last one about a year ago, normal per pt. Given decrease in her hgb despite protonix 40mg bid and diuresis with negative fluid balance, will ask GI to see her. CAD: stable, s/p stent about a month ago. Valvular heart disease: May be source of MOON, and is currently doing much better following diuresis. BNP only mildly elevated. Cardiology would prefer to reassess echo after pt stable from GI bleed. As she is symptomatically much improved, this seems reasonable. 08/30/17 13:51 Anemia: hgb has not stabilized. EGD negative this morning. Plan for f/u colonoscopy tomorrow. Valvular heart disease: lisinopril discontinued by Dr. Jara due to low BPs. F/ u anticipated in 5-6 weeks for repeat echo, reassessment of valves. 08/30/17 13:54 Subjective: Just back from EGD and is upset that it was negative and colonoscopy not done at same time. Hgb is still dropping, and GI is recommending colonoscopy tomorrow , as she was not prepped for that today. Have encouraged her to go ahead and follow through with colonoscopy here at the hospital so that she can be monitored closely. BP has fluctuated some, and she desaturates without oxygen. She lives in [place] at [address] Objective: Vital Signs Temp Pulse Resp BP Pulse Ox 36.5 C 94 18 93/39 L 90 L 08/30/17 10:40 08/30/17 10:18 08/30/17 11:16 08/30/17 11:16 08/30/17 11:16 Laboratory Results 08/30/17 04:16 08/29/17 04:37 08/29/17 08/30/17 08/31/17 05:59 05:59 05:59 Intake Total 725 1050 650 Output Total 1250 450 100 Balance -525 600 550 PT 15.3 SEC (12.0-15.0) H 08/27/17 15:35 INR 1.19 (0.83-1.16) H 08/27/17 15:35 ICD10 Worksheet Patient Problems: Problems Problem Status Onset Symptomatic anemia Acute
[2017-08-31 04:29] VITALS: TEMP 98.2
[2017-08-31 04:41] LABS: PLATELET COUNT 218 10^3/uL (150-400)
[2017-08-31] MEDS ORDERED: LR 1,000 ML IV ONE (07:20)
[2017-08-31 07:32] VITALS: PULSE 91
--- NOTE | 2017-08-31 07:48 | PDANEPAE ---
ANE Past Medical History - Cardiovascular History Hx Chest Pain: Yes Hx Coronary Artery / Peripheral Vascular Disease: Yes Hx CHF / Valvular Disease: Yes - Pulmonary History Hx Oxygen in Use at Home: Yes O2 in Use at Home (L/minute): 2-4 Hx Sleep Apnea: Yes Sleep Apnea Screening Result - Last Documented: Positive - Endocrine History Hx Diabetes: No ANE Review of Systems Review of Systems: ANE Patient History - Allergies Allergies/Adverse Reactions: No Known Allergies Allergy (Unverified 08/27/17 13:58) - Home Medications Home Medications: Aspirin [Aspirin 81mg (*)] 81 mg PO DAILY 08/27/17 [Last Taken Unknown] Clopidogrel Bisulfate [Plavix (*)] 75 mg PO DAILY 08/27/17 [Last Taken Unknown] Herbals/Supplements -Info Only 1 ea PO DAILY 08/27/17 [Last Taken Unknown] Metoprolol Succinate 12.5 mg PO BID 08/27/17 [Last Taken Unknown] Niacin ER [Niaspan 500 mg (*)] 500 mg PO BID 08/27/17 [Last Taken Unknown] [place]-3 Fatty Acids [Fish Oil 1000 mg (*)] 1,000 mg PO DAILY 08/27/17 [Last Taken Unknown] Omeprazole 20 mg PO DAILY 08/27/17 [Last Taken Unknown] - NPO status NPO Since - Liquids (Date): 08/30/17 NPO Since - Liquids (Time): 20:00 NPO Since - Solids (Date): 08/30/17 NPO Since - Solids (Time): 18:00 - Smoking Hx Smoking Status: Former smoker - Alcohol Use Alcohol Use: Occasionally ANE Labs/Vital Signs - Labs Result Diagrams: 08/31/17 04:02 08/29/17 04:37 - Vital Signs Blood Pressure: 106/48 Heart Rate: 91 Respiratory Rate: 18 O2 Sat (%): 97 Height: 156.21 cm Weight: 79.7 kg ANE Physical Exam - Airway Neck exam: FROM Mallampati Score: Class 2 Mouth exam: normal dental/mouth exam - Pulmonary Pulmonary: no respiratory distress - Cardiovascular Cardiovascular: regular rate and rhythym - ASA Status ASA Status: III ANE Anesthesia Plan Total IV Anesthesia: Yes
[2017-08-31] MEDS ORDERED: fentaNYL 100 MCG/2 ML INJ ONE (07:49)
[2017-08-31] MEDS ORDERED: PROPOFOL/EMULSION 500 MG/50 ML BOTTLE IV ONE (07:49)
[2017-08-31] MEDS ORDERED: LIDOCAINE 2% 100 MG/5 ML SYR ONE (07:49)
--- NOTE | 2017-08-31 08:11 | GIREPORT ---
[facility] Surgical Services - Endoscopy Department Patient Name: Carol Goyal Procedure Date: 08/31/2017 7:55 AM Patient Type: Inpatient Attending MD/ ER Physician: Haleigh Vuong MD Procedure: Colonoscopy Indications: Melena, Acute post hemorrhagic anemia Providers: Haleigh Vuong MD Medicines: Sedation Administered by an Anesthesia Professional Complications: No immediate complications. Description of Procedure: After obtaining informed consent, the scope was passed under direct vis ion. Throughout the procedure, the patient's blood pressure, pulse, and oxyg en saturations were monitored continuously. The Colonoscope with irrigatio n channel was introduced through the anus and advanced to the cecum, identified by appendiceal orifice and ileocecal valve. The colonoscopy was performed without difficulty. The patient tolerated the procedure well. The quality of the bowel preparation was good. Findings: Multiple small-mouthed diverticula were found in the sigmoid colon. The exam was otherwise without abnormality. Estimated Blood Loss: Estimated blood loss: none. Post Op Diagnosis: - Diverticulosis in the sigmoid colon. - The examination was otherwise normal. - No specimens collected. Recommendation: - [facility] patient to [facility] for [facility] care. - To visualize the small bowel, perform video capsule endoscopy. - Advance diet as tolerated. - Can consider DC home today. Attending Participation: I personally performed the entire procedure. Haleigh Vuong MD Haleigh Vuong MD 08/31/2017 8:11:27 AM This report has been signed electronicallyDaus Yevgeniy MD Number of Addenda: 0 Note Initiated On: 08/31/2017 7:55 AM Total Procedure Duration Time 0 hours 11 minutes 54 seconds [email or web address]
--- NOTE | 2017-08-31 08:16 | SUROPNOTE ---
[facility] Operative Report - Surgery BRIEF GI/COLONOSCOPY NOTE COLONOSCOPY Indication: hematochezia/melena/anemia Complications: none acutely Medications: per anesthesia Findings: 1. sigmoid diverticula 2. otherwise normal exam 3. no residual blood or clear source of blood loss IMPRESSION/RECS: 1. Obscure GI bleeding - EGD/Colon without source - resoled diverticula? small bowel source? - ok to advance diet and dc home - my office will arrange outpt capsule endoscopy to r/o small bowel bleeding source - will sign off, call with questions
[2017-08-31] MEDS ORDERED: ALBUTEROL 3 ML DEYVIAL IH PRN (08:17)
[2017-08-31] MEDS ORDERED: NALOXONE HCL 0.4 MG/ML INJ IVP PRN (08:17)
--- NOTE | 2017-08-31 08:17 | POSTANESTH ---
Post Anesthetic Evaluation Cardiovascular Status: Similar to Pre-Op Cond Respiratory Status: Similar to Pre-op Cond. Level of Consciousness/Mental Status: Mildly Sleepy, Arousable Pain Control: Adequate, Prn Tx Ordered Nausea/Vomiting Control: Adequate, Prn Tx Ordered Complications Possibly Related to Anesthesia: None Noted
--- NOTE | 2017-08-31 08:54 | SOAPPROG ---
SOAP Progress Note Assessment/Plan: Assessment: Plan: 08/27/17 13:54 symptomatic anemia, hgb 6.8, Stent placed 1 month ago. Will admit for obs, for transfusion of 2 units prbc's RLE Venous doppler performed in office with did not show RLE DVT. Eliquis will be stopped. Continue ASA and Plavix in place of Brilinta 08/28/17 09:20 symptomatic anemia--anemia corrected but patient does not feel better. Will expand work up. Echo, labs, further eval when results are available. 08/31/17 08:52 anemia--improved after transfusion, now stable at 9.0 EGD/Colon without clear bleeding source significant valvular heart disease--improving with medication management, will have f/u with cards in 5-6 weeks if stable, sooner if needed MELANIE--CPAP hypoxia due to severe MS,TR, moderate MR with pulm htn. May need portable oxygen. SO has o2 in [place]. d/c home today. Meds to be called to her [place] [employer] Subjective: Carol states she is feeling more comfortable with walking. SOB has lessened. No CP. She is hungry. Lives in [place] at [address] Objective: Vital Signs Temp Pulse Resp BP Pulse Ox 36.8 C 91 15 106/47 L 98 08/31/17 08:32 08/31/17 07:48 08/31/17 08:31 08/31/17 08:31 08/31/17 08:31 Laboratory Results 08/31/17 04:02 08/29/17 04:37 08/30/17 08/31/17 09/01/17 05:59 05:59 05:59 Intake Total 1050 2200 0 Output Total 450 900 0 Balance 600 1300 0 PT 15.3 SEC (12.0-15.0) H 08/27/17 15:35 INR 1.19 (0.83-1.16) H 08/27/17 15:35 Gen: NAD HEENT: no JVPE Lungs: CTAB Heart: RRR murmur less to 2/6 LE's trace ankle edema ICD10 Worksheet Patient Problems: Problems Problem Status Onset Symptomatic anemia Acute - ICD10 Problem Qualifiers (1) Symptomatic anemia
[2017-08-31 09:38] VITALS: BP 103/53; RESP 16
[2017-08-31] MEDS: METOPROLOL SUCCINATE XR 25 MG TAB PO SCH (09:47)
[2017-08-31] MEDS: PANTOPRAZOLE SODIUM 40 MG TAB PO SCH (09:48)
[2017-08-31] MEDS: OMEGA-3 FATTY ACIDS 1,000 MG CAP PO SCH (09:48)
[2017-08-31] MEDS: ASPIRIN 81 MG CHEWABLE TAB PO SCH (09:48)
[2017-08-31] MEDS: NIACIN ER 500 MG TAB.ER PO SCH (09:48)
[2017-08-31] MEDS: SPIRONOLACTONE 25 MG TAB PO SCH (09:48)
[2017-08-31] MEDS: CLOPIDOGREL BISULFATE 75 MG TAB PO SCH (09:48)
[2017-08-31] MEDS: ATORVASTATIN CALCIUM 20 MG TAB PO SCH (09:48)
[2017-08-31] MEDS: FUROSEMIDE 20 MG TAB PO SCH (09:51)
--- NOTE | 2017-08-31 09:55 | ASMTCMCOM ---
CM Note CM Note Notes: Chart reviewed. Patient medically cleared for discharge to home. No needs at time of dc. CM available should needs arise. Date Signed: 08/31/2017 09:54 AM Electronically Signed By:Genia Kendall RN
--- NOTE | 2017-08-31 09:56 | ASMTLACE ---
LACE Length of stay for Answers: 3 days current admission Acuity / Level of Answers: Yes Care: Did the patient have an inpatient admission? Comorbidities - select Answers: Other Notes: anemia, cardiac stent all that apply # of Emergency department Answers: 0 visits in the last 6 months Score: 7 Date Signed: 08/31/2017 09:55 AM Electronically Signed By:Genia Kendall RN
[2017-08-31 10:00] VITALS: O2SAT 97
== END 2017-08-31 11:52 | disposition home or self-care (01) | DRG 812 ==
LOC: F1N 14:53 → OBSVTOIN 08-28 15:03
PROVIDERS: ADMIT Internal Medicine; ATTEND Internal Medicine
PROC: 30233N1 Transfusion of Nonautologous Red Blood Cells into Peripheral Vein, Percutaneous Approach (ICD-10-PCS; 2017-08-27)
PROC: 0DJD8ZZ Inspection of Lower Intestinal Tract, Via Natural or Artificial Opening Endoscopic (ICD-10-PCS; principal; 2017-08-30 09:30)
PROC: 0DJ08ZZ Inspection of Upper Intestinal Tract, Via Natural or Artificial Opening Endoscopic (ICD-10-PCS; 2017-08-31)
DX: D50.0 Iron deficiency anemia secondary to blood loss (chronic) (principal); I25.10 Atherosclerotic heart disease of native coronary artery without angina pectoris; K21.9 Gastro-esophageal reflux disease without esophagitis; G47.30 Sleep apnea, unspecified; I08.3 Combined rheumatic disorders of mitral, aortic and tricuspid valves; Z79.01 Long term (current) use of anticoagulants; Z95.5 Presence of coronary angioplasty implant and graft
CPT/HCPCS: 82607-90; 83695-90; 84481-90; G0378; G0379; J2001; J2704; J3010; P9016

== ENCOUNTER → 2017-10-14 | Outpatient (CLI) | payer OTHER, MEDICARE | LOC: BHFA 10:45 | PROVIDERS: ATTEND Internal Medicine Cardiovascular Disease | DX: I25.10 Atherosclerotic heart disease of native coronary artery without angina pectoris (principal); R01.1 Cardiac murmur, unspecified ==

== ENCOUNTER 2017-10-26 09:10 | Day surgery (SDC) | payer OTHER, MEDICARE ==
[2017-10-26] MEDS ORDERED: NS 500 ML IV ONE (09:15)
[2017-10-26] MEDS ORDERED: MIDAZOLAM 2 MG/2 ML VIAL IVP ONE (09:15)
[2017-10-26] MEDS ORDERED: BENZOCAINE UNIT DOSE SPRAY HURRICAINE MM ONE (09:15)
[2017-10-26] MEDS ORDERED: fentaNYL 100 MCG/2 ML INJ IVP ONE (09:15)
--- NOTE | 2017-10-26 09:39 | PDHPUP ---
History & Physical Update H&P update statement: This history and physical update is based on an assessment of the patient which was completed after admission or registration (within 24 hours), but prior to the surgery/procedure. H&P update: H&P reviewed & patient examined, no change in patient's condition since H&P completed
--- NOTE | 2017-10-26 09:40 | PDPROPOC ---
Sedation Plan of Care Sedation Plan of Care: mental status noted ASA Classification: ASA 3 Planned drugs: fentanyl, midazolam Mallampati Score: Class 2 Mallampati Reference Image: Patient passed 3-3-2 rule?: Yes
[2017-10-26] MEDS ORDERED: fentaNYL 100 MCG/2 ML INJ ONE (09:42)
[2017-10-26] MEDS ORDERED: MIDAZOLAM 2 MG/2 ML VIAL ONE (09:42)
--- NOTE | 2017-10-26 10:23 | PDTEE1 ---
JENNY Cardioversion Procedure Procedure: transesophageal echo Indications: other Consent: signed and in chart Procedural Details: After informed consent was obtained and n.p.o. status was confirmed, the back of the patient's throat was numbed with 1% Cetacaine solution. The JENNY probe was advanced into the patient's esophagus and the ultrasound reviewed without evidence of left atrial clot or thrombus. Conclusions: successful JENNY Conclusion Comment: Moderate TR. Mild to moderate moderate AI. Moderate to severe mitral stenosis. She has decreased cardiac output due to mitral stenosis. Would like to do R/LHC to confirm she has severe mitral valve stenosis and get her simultaneous pulmonary capillary wedge pressure and LVEDP to evaluate a formal gradient pressure. Patient Problems: Problems Problem Status Onset Symptomatic anemia Acute
[2017-10-26] MEDS ORDERED: NS 1,000 ML IV ONE (12:18)
[2017-10-26] MEDS ORDERED: diphenhydrAMINE 25 MG CAP PO ONE ×2 (12:18→12:28)
[2017-10-26] MEDS ORDERED: FAMOTIDINE 20 MG TAB PO ONE (12:18)
[2017-10-26] MEDS ORDERED: ASPIRIN EC 325 MG TAB PO ONE ×2 (12:18→12:29)
[2017-10-26] MEDS ORDERED: DIAZEPAM 5 MG TAB PO ONE (12:18)
[2017-10-26] MEDS ORDERED: FAMOTIDINE 20 MG TAB ONE (12:29)
[2017-10-26] MEDS ORDERED: DIAZEPAM 5 MG TAB ONE (12:29)
[2017-10-26 12:34] LABS: PLATELET COUNT 214 10^3/uL (150-400)
[2017-10-26 12:43] LABS: INR 1.09 (0.83-1.16); PROTIME(PATIENT) 14.3 SEC (12.0-15.0)
--- NOTE | 2017-10-26 14:25 | ECHO ---
[email or web address] [address] [address] Main: [phone] Fax: Transesophageal Echocardiography Name: FERMIN ALFARO MR#: [id number] Study Date: 10/26/2017 Study Time: 10:12 AM Date of : 1935 Age: 82 year(s) Height: ( ) Weight: ( ) BSA: Gender: Female Examination: Echo Indication: Murmur Image Quality: Contrast: Requested by: Juvencio Taveras Heart Rate: Rhythm: Normal sinus rhythm BP: / Procedure Staff Site Acquisition Specialist: Sandro Cortez RDCS Reading Physician: Juvencio Taveras MD Requesting Provider: Juvencio Taveras JENNY Exam Details Conclusions: The patient has JENNY confirmed moderate to severe mitral stenosis with a history of flash pulmonary edema. She will need right and left heart cath with simultaneous pressures to confirm the resting mean and peak diastolic gradient. I have discussed this recommendation with the patient her partner and SAVAGE Núñez as well as with her primary care physician Dr. Job Cheng. Measurements: Chambers Valvular Assessment AV/MV Valvular Assessment TV/PV Normal Normal Normal Name Value Range Name Value Range Name Value Range MV meanP mmHg ( - ) MV PHT: 0.053 s ( - ) MVA (PHT): 4.2 s ( - ) Additional Measurements: Valvular Assessment AV/MV Name Value MV VTI: 50.10 cm Findings: Left Ventricle: Patient: FERMIN ALFARO Study Date: 10/26/2017 Page 1 of 2 10:12 AM Mildly reduced systolic LV function. Right Ventricle: Normal RV function. Left Atrium: The left atrium is mildly dilated. Left Atrial Appendage: Good color flow doppler in the left atrial appendage. No thrombus in left appendage. Right Atrium: The right atrium is normal in size. Mitral Valve: Moderate mitral valve leaflet calcification is present. There is Moderate posterior annulus calcification. There is Moderate anterior annulus calcification. There is a mean MV gradient of 9 mmHg. There is moderate to severe Mitral Valve stenosis. The previous surface echocardiogram displayed a mean PG of 11mmHg.. Aortic Valve: Moderate aortic cusp calcification is present. Mild aortic valve regurgitation is present. The aortic valve leaflets are restricted. The previous Ao mean PG from 08/28/17 presented a mean aortic valve grdient of 20 mmHg.. Tricuspid Valve: Moderate to severe tricuspid valve regurgitation. Pulmonic Valve: The pulmonic valve is normal in appearance and function. Pericardium: No pericardial effusion. Exam Comments: Clinical correlation is recommended.. l1n (No Signature Object) Patient: FERMIN ALFARO Study Date: 10/26/2017 Page 2 of 2 10:12 AM [id number]
== END 2017-10-26 13:25 | disposition home or self-care (01) ==
LOC: FCATH 09:10
PROVIDERS: ATTEND Internal Medicine Cardiovascular Disease
PROC: B246ZZ4 Ultrasonography of Right and Left Heart, Transesophageal (ICD-10-PCS; principal; 2017-10-26)
DX: I08.3 Combined rheumatic disorders of mitral, aortic and tricuspid valves (principal); I25.10 Atherosclerotic heart disease of native coronary artery without angina pectoris; Z87.01 Personal history of pneumonia (recurrent)
CPT/HCPCS: J2250; J3010

== ENCOUNTER 2017-11-02 09:02 | Inpatient (IN) | payer OTHER, MEDICARE ==
[2017-11-02] MEDS ORDERED: ACETAMINOPHEN 325 MG TAB PO PRN (14:38)
[2017-11-02] MEDS ORDERED: ONDANSETRON 4 MG/2 ML VIAL IVP PRN (14:38)
[2017-11-02] MEDS ORDERED: ONDANSETRON DISINTEGRATING 4 MG TAB PO PRN (14:38)
--- NOTE | 2017-11-02 15:27 | PDCARPN ---
Cardiology Progress Note Chief Complaint: Patient with complaints of dyspnea and malaise at home today. Arrival to [facility] with direct admission, and a lack of CV symptoms at present. Assessment/Plan: Assessment: Patient is an 82 y/o female, known to [facility] (Dr. Bill Taveras), with history of CAD s/p PCI (mLAD; 06/2017), GERD (with history of GI bleed earlier this year), MELANIE with CPAP use, and valve pathology (severe mitral stenosis, mild /mod , and severe TR), who presents to [facility] as a direct admission after complaints of dyspnea and malaise at elevation (home). At present, the patient is resting comfortably without active cardiovascular complaints (no chest pains or pressure, no PND or orthopnea, no dyspnea or diaphoresis, no dizziness or lightheadedness). The last outpatient office note from Dr. Bill Taveras (10-14-17) was reviewed, and at that point, plans were made for JENNY to better visualize the noted valve pathology. Surface echo from 08/28/17 with normal LVEF (65%), severe mitral stenosis (mean gradient of 11 mm Hg), moderate aortic sclerosis with stenosis (mean gradient was 20 mm Hg) with severe tricuspid regurgitation and right ventricular systolic pressures of 70 mm Hg. JENNY from 10-26-17 with similar findings to the valve pathology (mean gradient through the mitral valve was 9 mm Hg, and mean gradient of the aortic valve was not reported on the JENNY, but visually, moderate to severe aortic stenosis appreciated). The ejection fraction by JENNY was reported as "mildly reduced" without a number reported. Plans after the JENNY were for pursuit of right, left, and cor assessment to reexamine gradients as well as coronary anatomy. This angiogram was scheduled for this (11-05-17). Ongoing use of ASA and Plavix for the CAD/PCI history. Eliquis was being used for DVT concerns, but after GI bleeding, this therapy was stopped (08/2017). At present, the patient is resting comfortably. No acute cardiovascular complaints are voiced at present. There was mild dyspnea as elevation, but this has resolved with relocation to [place]. Plan: (1) Would have reassessment of CBC (H/H in particular) with ongoing need to have ASA and Plavix therapy for one year (if possible) and relatively recent history of GI bleeding. (2) Would continue therapy on statins for HLP and CAD/PCI history - maintain annual assessment of cholesterol and LFTs (3) Aldactone and Toprol should continue for HTN history with CAD/PCI (4) Lasix should continue for assistance with fluid management given the valve pathologies noted (5) Would continue PPI therapy as at present, especially given the admission earlier this year for GI bleeding (6) Will discuss pursuit of angiography tomorrow with both Dr. Kia Cheng as well as Dr. Bill Taveras, given these plans were formulated between PCP and cardiology recently. Subjective: No cardiovascular complaints at present. Reviewed/Discussed With: family Objective: Vital Signs (8 Hrs) Temp Pulse Resp BP Pulse Ox 11/02/17 13:19 37.1 C 14 L 18 120/63 98 Intake/Output (24 Hrs) 11/01/17 11/02/17 11/03/17 05:59 05:59 05:59 Other: Weight 80.1 kg Telemetry: normal sinus rhythm at 90 bpm Echocardiogram: JENNY (last echo from 10/30) with moderate to severe MS (mean gradient of 9-11 mm Hg), moderate AI, moderate to severe TR with RVSP of 70 (by surface echo). - Physical Exam Constitutional: WDWN, healthy appearing, no apparent distress Eyes: PERRL, EOMI Ears, Nose, Mouth, Throat: moist mucous membranes Cardiovascular: regular rate and rhythm, systolic murmur, diastolic murmur (II/ ), pulses symmetric bilat, No jugular vein distention Peripheral Pulses: 2+: dorsalis-pedis (R), dorsalis-pedis (L) Respiratory: clear to auscultate bilat, no crackles, no wheezes Gastrointestinal: normoactive bowel sounds Skin: no rashes, no edema Musculoskeletal: no muscular tenderness Neurologic: AAOx3, CN II-XII grossly intact Psychiatric: cooperative, interactive, following commands ICD10 Worksheet Patient Problems: Problems Problem Status Onset Mitral stenosis Acute Symptomatic anemia Acute
--- NOTE | 2017-11-02 15:48 | GHP ---
[f rep st] HISTORY AND PHYSICAL DATE OF ADMISSION: 11/02/2017 HISTORY OF PRESENT ILLNESS: This is an 82-year-old female who is brought in as a direct admission [place] [facility] for shortness of breath in the setting of known valvular disease. She has a history of mitral stenosis and aortic stenosis, and is seen by Dr. Pereira, as well as Dr. Taveras at [facility]. She also has a history of GERD, coronary artery disease with stent placement in June of 2017 to her LAD, hyperlipidemia, hypothyroidism. She currently wears supplemental oxygen at night, 2 L. She has a history of sleep apnea, anemia, and she is status post blood transfusion about 2 weeks ago , and Hodgkin lymphoma. Carol has an elevated coronary artery calcium score. Her last scan was in January of 2017, with an Agaston score of 2263.62, with a 38 % annualized plaque progression. Again, she had a stent placed to her LAD in June of this year. She has recently seen Dr. Taveras for evaluation of her valvular heart disease. Her most recent JENNY confirmed moderate to severe mitral stenosis, as well as moderate to severe tricuspid valve regurgitation and moderate aortic cusp calcification. At that time, the recommendation was a followup right heart catheterization, but the patient declined at that time. She had been planning to follow up with Dr. Taveras to get this rescheduled, it sounds like for possibly later this week. Dr. Taveras has been made aware that the patient has been admitted, and cardiology will be following her. Carol was at home in [place], [place], when she woke up at about 4 o'clock this morning, wearing 2 L of oxygen, and felt some chest tightness and shortness of breath. Her oxygen saturations remained in the low 90s on the 2 L of oxygen. Her urged her to go to the emergency department. On arrival to the emergency department [place] [facility] she was found to be hypoxic on room air at 71%. They were able to get her sats up to 94% on 3 L. per the ED doc, she was rhonchorous throughout. Chest x-ray confirmed some mild pulmonary edema. Carol's troponin was negative. Her BNP was relatively normal at 279. Her white count was normal at 6.9. H and H were stable at 12.3 and 39.3. Sodium 140, potassium 4.2, creatinine 0.93. LFTs were normal. They also confirmed that she is heme negative, as she has noted that her stools have been somewhat dark. Her EKG was without acute change, but did show a left bundle branch block. There was no evidence of ischemia or acute coronary syndrome. FAMILY HISTORY: Father is from heart disease. SOCIAL HISTORY: Former smoker. ALLERGIES: No known drug allergies. REVIEW OF SYSTEMS: GENERAL: Denies fever, chills, headache. RESPIRATORY: As noted in HPI. Experienced some shortness of breath around 4 o'clock this morning; that has since resolved. The patient is currently wearing supplemental oxygen to maintain her sats in the 90s. She wears 2 L of oxygen at home at night. CARDIOVASCULAR: Denies chest pain, palpitations, irregular heartbeat, dizziness, lightheadedness, although she did note some chest tightness around 4 o'clock this morning when she experienced shortness of breath. GI: Denies nausea, vomiting, diarrhea. GENITOURINARY: Denies any urinary burning or frequency. MUSCULOSKELETAL: Denies swollen joints, muscle aches, acute joint stiffness. SKIN: Denies itching, rash. NEUROLOGIC: Denies loss of strength or sensation, dizziness, lightheadedness, fainting, confusion. PHYSICAL EXAMINATION: GENERAL: Alert and oriented, in no acute distress. HEAD : Normocephalic, atraumatic. RESPIRATORY: Lungs clear to auscultation bilaterally. No wheezing, rhonchi, or rales. CV: 3/6 holosystolic murmur, consistent with known mitral stenosis. Also with murmur heard on auscultation to bilateral carotids, consistent with aortic stenosis. GI: Abdomen soft, nontender, nondistended. EXTREMITIES: Without peripheral edema. Positive pedal pulses. NEUROLOGIC: Exam grossly nonfocal. PSYCHIATRIC: Cognitive function intact. Judgment and insight are good. Mood is full range. ASSESSMENT AND PLAN: 1. Valvular heart disease. The patient will be admitted for observation. Cardiology has been consulted. At this time her BNP is stable at 279. She does not have any evidence of acute fluid overload, so we will hold off on diuresis for now as we await Cardiology consult. 2. Gastroesophageal reflux disease. Continue twice daily PPI. 3. Coronary artery disease, status post stent placement. Continue Plavix and aspirin. Currently without chest pain or evidence of acute coronary syndrome. 4. Hyperlipidemia. Currently on simvastatin 20 mg. 5. Hypothyroid. Stable. Monitored outpatient. 6. Sleep apnea. The patient wears 2 L of oxygen at night while at elevation. She recently had an overnight pulse ox which confirmed that her sleep apnea appears to be treated with the supplemental oxygen at night, and does not require the current use of the CPAP. 7. Deep vein thrombosis prophylaxis. Encourage ambulation. SCDs while in bed. DISPOSITION: Admit as observation as we discuss plan with cardiology. /[id number]/MODL MTDD
[2017-11-02 17:12] LABS: PROTIME(PATIENT) 13.4 SEC (12.0-15.0)
[2017-11-02] MEDS ORDERED: NON-FORMULARY NEW DRUG (Simvastatin [Zocor] 20 MG) PO SCH (18:00)
[2017-11-02] MEDS: ATORVASTATIN CALCIUM 10 MG TAB PO SCH (18:43)
[2017-11-02] MEDS: METOPROLOL SUCCINATE XR 25 MG TAB PO SCH (20:31)
[2017-11-02] MEDS: CLOPIDOGREL BISULFATE 75 MG TAB PO SCH (20:31)
[2017-11-02] MEDS: PANTOPRAZOLE SODIUM 40 MG TAB PO SCH (20:34)
[2017-11-02] MEDS: FERROUS SULFATE 325 MG TAB PO SCH (20:35)
[2017-11-02] MEDS: NIACIN ER 500 MG TAB.ER PO SCH (20:35)
[2017-11-03] MEDS ORDERED: DIAZEPAM 5 MG TAB PO ONE (06:53)
[2017-11-03] MEDS ORDERED: TEMAZEPAM 15 MG CAP PO PRN (06:53)
[2017-11-03] MEDS ORDERED: FAMOTIDINE 20 MG TAB PO ONE (06:53)
[2017-11-03] MEDS ORDERED: diphenhydrAMINE 25 MG CAP PO ONE (06:53)
[2017-11-03] MEDS ORDERED: ACETAMINOPHEN 325 MG TAB PO PRN (06:53)
[2017-11-03] MEDS ORDERED: NITROGLYCERIN 0.4 MG BTL SL PRN (06:53)
[2017-11-03] MEDS ORDERED: NS 1,000 ML IV SCH (07:00)
--- NOTE | 2017-11-03 09:20 | SOAPPROG ---
BREA Progress Note Assessment/Plan: Assessment: 82 yo female with h/o valvular heart disease who is also s/p stent to her LAD in 06/2017 who presented to the ER in [facility] yesterday AM after awakening at 0400 with chest tightness and shortness of breath. Her initial bloodwork was grossly NL with BNP 279 and negative trop, and her EKG was without acute changes or e/o ischemia. She was transferred to [facility] for observation and consultation by cardiology for further evaluation of her valvular disease. Plan: Moderate-Severe Mitral stenosis - scheduled L/R heart cath today with Dr. Torres (appreciate assistance!) for further evaluation of her valvular disease. Can then discuss options for mgt once we know severity of disease Moderate Aortic Stenosis - confirmed by recent JENNY and with radiation of murmur to bilat carotids, currently w/o CP, presyncope H/o Anemia - h/h this AM 11.5/37.2 GERD - on BID PPI CAD - s/p stent in 06/2017, on ASA and plavix, currently w/o e/o ACS HLD - simvastatin Hypothyroid - monitored outpt Elevated coronary artery calcium score - Agaston score of 2263 in 01/2017 with 38 % annualized plaque progression, currently without CP, s/sx ACS Sleep apnea - treated with supplemental nocturnal oxygen 2LO2 DVT Prophylaxis - SCDs, encourage ambulation, ASA, plavix Dispo - con't outpt status while workup pending with cardiology 11/03/17 09:42 Subjective: Carol is up walking around her room during our exam. She says she is feeling overall okay, did have one episode of chest tightness and wheezing/SOB over night, but it resolved by resting. Objective: Vital Signs Temp Pulse Resp BP Pulse Ox 36.8 C 95 14 113/59 L 96 11/03/17 07:43 11/03/17 07:43 11/03/17 07:43 11/03/17 07:43 11/03/17 07:43 Laboratory Results 11/02/17 16:25 11/02/17 11/03/17 11/04/17 05:59 05:59 05:59 Intake Total 390 Output Total 950 Balance -560 PT 13.4 SEC (12.0-15.0) 11/02/17 16:25 INR 1.00 (0.83-1.16) 11/02/17 16:25 Gen- AAOx3, not in distress Head- normocephalic, atraumatic Resp- LCTAB, no wheezing, rhonchi, rales CV- systolic and diastolic murmurs, RRR, S1S2 Abd- SNT, nondistended Extremities- no peripheral edema, + pedal pulses Neuro- grossly intact Psych- mood full affect, NL cognition ICD10 Worksheet Patient Problems: Problems Problem Status Onset Mitral stenosis Acute Symptomatic anemia Acute
[2017-11-03 09:29] LABS: PLATELET COUNT 224 10^3/uL (150-400)
[2017-11-03 09:39] LABS: INR 0.95 (0.83-1.16); PROTIME(PATIENT) 12.9 SEC (12.0-15.0)
--- NOTE | 2017-11-03 10:02 | PDCARPN ---
Cardiology Progress Note Chief Complaint: No cardiovascular complaints today. The patient did have a bout of shortness of breath last night, but resolution was noted. Assessment/Plan: Assessment: 11-03-17 No cardiovascular complaints today. No chest pains or pressure. Mild dyspnea was noted last night with lying down, and resolution was noted with sitting up ( ? PND/orthopnea). Breath sounds this morning were normal. Patient is scheduled for angiography today (right, left, and cors), but the cath schedule is busy, and I am not wanting to have the patient NPO all day. Will keep patient posted on the schedule progress to determine time of procedure. Briefly mentioned that she will likely need to have valve surgery (mitral, aortic, and tricuspid), but this was, according to the patient, something "new" to her that had not been discussed previously (?). 11-02-17 Patient is an 82 y/o female, known to [facility] (Dr. Bill Taveras), with history of CAD s/p PCI (mLAD; 06/2017), GERD (with history of GI bleed earlier this year), MELANIE with CPAP use, and valve pathology (severe mitral stenosis, mild /mod , and severe TR), who presents to [facility] as a direct admission after complaints of dyspnea and malaise at elevation (home). At present, the patient is resting comfortably without active cardiovascular complaints (no chest pains or pressure, no PND or orthopnea, no dyspnea or diaphoresis, no dizziness or lightheadedness). The last outpatient office note from Dr. Bill Taveras (10-14-17) was reviewed, and at that point, plans were made for JENNY to better visualize the noted valve pathology. Surface echo from 08/28/17 with normal LVEF (65%), severe mitral stenosis (mean gradient of 11 mm Hg), moderate aortic sclerosis with stenosis (mean gradient was 20 mm Hg) with severe tricuspid regurgitation and right ventricular systolic pressures of 70 mm Hg. JENNY from 10-26-17 with similar findings to the valve pathology (mean gradient through the mitral valve was 9 mm Hg, and mean gradient of the aortic valve was not reported on the JENNY, but visually, moderate to severe aortic stenosis appreciated). The ejection fraction by JENNY was reported as "mildly reduced" without a number reported. Plans after the JENNY were for pursuit of right, left, and cor assessment to reexamine gradients as well as coronary anatomy. This angiogram was scheduled for this (11-05-17). Ongoing use of ASA and Plavix for the CAD/PCI history. Eliquis was being used for DVT concerns, but after GI bleeding, this therapy was stopped (08/2017). At present, the patient is resting comfortably. No acute cardiovascular complaints are voiced at present. There was mild dyspnea as elevation, but this has resolved with relocation to [place]. Plan: (1) Aldactone and Toprol should continue for HTN management (2) Statins for HLP to continue (3) Lasix to continue given the symptoms reported (4) PPI therapy to continue (5) Working to have cath today, and monitoring the schedule to do so Subjective: No complaints voiced today Objective: Vital Signs (8 Hrs) Temp Pulse Resp BP Pulse Ox 11/03/17 07:43 36.8 C 95 14 113/59 L 96 11/03/17 03:34 36.6 C 87 17 99/59 L 94 Intake/Output (24 Hrs) 11/02/17 11/03/17 11/04/17 05:59 05:59 05:59 Intake Total 390 Output Total 950 Balance -560 Intake: Oral (ml) 390 Output: Urine (ml) 950 Toilet 950 Other: Weight 80.1 kg Number of Voids Toilet 1 Result Diagrams: 11/03/17 09:18 11/03/17 09:18 Telemetry: sinus rhythm with rate of 95 bpm - Physical Exam Constitutional: WDWN, healthy appearing, no apparent distress Eyes: PERRL, EOMI Ears, Nose, Mouth, Throat: moist mucous membranes Cardiovascular: regular rate and rhythm, systolic murmur, diastolic murmur, pulses symmetric bilat, No jugular vein distention Peripheral Pulses: 2+: dorsalis-pedis (R), dorsalis-pedis (L) Respiratory: clear to auscultate bilat, no crackles, no wheezes Gastrointestinal: normoactive bowel sounds Skin: no rashes, no edema Musculoskeletal: no muscular tenderness Neurologic: AAOx3, CN II-XII grossly intact Psychiatric: cooperative, interactive, following commands ICD10 Worksheet Patient Problems: Problems Problem Status Onset Mitral stenosis Acute Symptomatic anemia Acute
--- NOTE | 2017-11-03 11:11 | PDPROPOC ---
Sedation Plan of Care Sedation Plan of Care: vital signs stable, mental status noted, patient educated of risks, benefits, alternatives, patient can tolerate sedation ASA Classification: ASA 2 Planned drugs: fentanyl, midazolam Mallampati Score: Class 2 Mallampati Reference Image: Patient passed 3-3-2 rule?: Yes
[2017-11-03] MEDS ORDERED: MIDAZOLAM 2 MG/2 ML VIAL ONE (11:13)
[2017-11-03] MEDS ORDERED: LIDOCAINE 1% 300 MG/30 ML SDV ONE (11:13)
[2017-11-03] MEDS ORDERED: fentaNYL 100 MCG/2 ML INJ ONE (11:13)
[2017-11-03] MEDS ORDERED: IOPAMIDOL (ISOVUE-370) 150 ML BTL IV ONE (11:13)
--- NOTE | 2017-11-03 12:11 | PDDXCAT ---
Diagnostic Cath Note - . Date: 11/03/17 Hepatologist: Melissa Indication: other (pre operative for mitral valve; history of CAD/PCI) - Procedure Access: right groin Procedure: left heart catheterization, coronary angiography, left ventriculogram , right heart catheterization - Materials Left Heart Cath size: 6F Left Heart Cath materials: standard multipack (JL4, JR4, pigtail) Right Heart Cath size: 5F Right Heart Cath materials: PWP catheter - Findings-Left Heart Catheterization LM: Short with trifurcation into the LAD, ramus, and LCX systems. No luminal irregularities noted. LAD: Medium diameter vessel with widely patent proximal stent. Mid LAD was smaller than principal diagonal (which has branching). No luminal irregularities were noted. LCX: Medium diameter vessel. Very large OM1 (principal) with 20% stenosis prior to the take off from the OM1. Just distal to this take off, there is a 50 -60% lesion noted in the LCX. Tortuosity is noted in distal LCX/OM systems. RCA: Dominant vessel with supply into the PDA. There was a 10% luminal irregularity to the mid RCA. Ramus: Small diameter vessel. No appreciable luminal irregularities were noted. EDP: 28 mm Hg LVEF: 55-60% Wall motion: Grossly normal - Findings-Right Heart Catheterization RA: mean of 12 mm Hg RV: 71/1 mm Hg PA: 77/28 mm Hg (mean of 50 mm Hg) PAOP: 29 mm Hg AO: 144/76 mm Hg CO: 6.1 l/min CI: 3.37 l/min/m^2 Complications: none Estimated blood loss: <50ml Closure method: Angioseal Assessment: Patient is an 82 y/o female with known CAD s/p PCI to the mLAD ( widely patent) with severe MS, mod (mean of 20 mm Hg), and severe TR. There was a small lesion to the mid LCX (just distal to large OM take off). Right heart pressures elevated (PA mean of 50 mm Hg with PAOP of 29 mm Hg). Mild AoV gradient of 20 mm Hg was also noted. Plan: Given the echocardiographic findings of severe MS, would have patient assessed by CT surgery (this discussion was to have happened in the past, but the patient was not able to have meeting (per reports)). There are luminal irregularities to the LCX, but they do not appear to be critical. LAD stent was widely patent. Intervention: none Patient Problems: Problems Problem Status Onset Mitral stenosis Acute Symptomatic anemia Acute
[2017-11-03] MEDS ORDERED: ATROPINE SULFATE 1 MG/10 ML SYR IVP PRN (12:18)
--- NOTE | 2017-11-03 12:33 | PDMN ---
Medical Necessity Medical necessity: change to IP; los>2mn for chest tightness and shortness of breath in setting of mod-severe mitral stenosis, and moderate Ao stenosis; requires cath today for eval of valvular disease staying 1-2 more nights, possible OHS; comorbid CAD s/p stent, coronary artery Ca score 2263, MELANIE, HLD, GERD, hx anemia; per order and [employer] statement 11/03/17
[2017-11-03] MEDS: OMEGA-3 FATTY ACIDS 1,000 MG CAP PO SCH (15:53)
[2017-11-03] MEDS: FUROSEMIDE 20 MG TAB PO SCH (15:53)
[2017-11-03] MEDS: SPIRONOLACTONE 25 MG TAB PO SCH (15:53)
--- NOTE | 2017-11-03 15:53 | ASMTCMCOM ---
CM Note CM Note Notes: 11/03/2017 Case Management Note Discussed pt with RN. Pt recently discharged from [facility] on 09/06/2017 independently. Pt was admitted for CHF exacerbation. Case Management unable to meet with pt today due to radiographer cardiac catheterization procedure. Case Management to meet with patient tomorrow to discuss d/c needs. Pt age and location of residence raises some d/c concerns. Pt lives independently in [facility]. There are no PT or OT evals ordered at this time. Case Management d/c poc: to be determined. Case Management to follow. Date Signed: 11/03/2017 03:53 PM Electronically Signed By:Sugar Weathers RN
[2017-11-03] MEDS: CHOLECALCIFEROL VIT D3 1,000 UNITS TAB PO SCH (15:54)
[2017-11-03] MEDS: NIACIN ER 500 MG TAB.ER PO SCH ×2 (15:54→21:02)
[2017-11-03] MEDS: METOPROLOL SUCCINATE XR 25 MG TAB PO SCH ×2 (15:54→21:00)
[2017-11-03] MEDS: ASPIRIN 81 MG CHEWABLE TAB PO SCH (15:54)
[2017-11-03] MEDS: PANTOPRAZOLE SODIUM 40 MG TAB PO SCH ×2 (15:55→21:00)
--- NOTE | 2017-11-03 17:54 | GCON ---
[f rep st] CONSULTATION DATE OF CONSULTATION: 11/03/2017 REQUESTING PHYSICIAN: Dr. Edward Torres with the patient's permission. IMPRESSION: 1. Congestive heart failure secondary to severe mitral stenosis, moderate to severe aortic stenosis, and severe tricuspid insufficiency. 2. Coronary artery disease status post stent to the left anterior descending in 2018. 3. Hyperlipidemia. 4. Hypothyroidism. 5. Gastroesophageal reflux disease. 6. Sleep apnea. 7. Chronic anemia. 8. Status post Hodgkin lymphoma. 9. Remote cigarette abuse, approximately 10 pack-year history. RECOMMENDATIONS: This very pleasant elderly female presents with recurrent pulmonary edema due to pr esumed underlying mitral stenosis. She underwent diagnostic right heart catheterization on this admi ssion post diuresis and was found to have an end-diastolic pressure of 28, ejection fraction 55% to 6 0%, CVP of 12, PA pressure 77/28, pulmonary artery occlusion pressure of 29 with a cardiac output of 6 L. Previous echo reveals severe tricuspid insufficiency, severe mitral stenosis, and moderate to s evere aortic stenosis with heavy calcification. Catheterization revealed no significant coronary obs truction post stenting. MEDICAL HISTORY: As stated. SURGERIES: As stated. STUDIES: Transesophageal echo, there was a moderate anterior anulus calcification. There was a mean 9 mm mitral valve gradient, peak gradient of 11. Aortic valve had a peak gradient of 20. Tricuspid has moderate to severe regurg. PHYSICAL EXAMINATION: GENERAL: An obese female, lying supine in bed post cath, accompanied by her ghazal tuhaydentomás and a male investigator. VITAL SIGNS: Blood pressure is 113/57, pulse 75 and regular, respirat ions 18 nonlabored, O2 saturation 92 on 2 L. HEENT: Normocephalic. PERRLA, EOMI. NECK: Without b ruits. HEART: Rate is regular with murmurs across precordium. LUNGS: Diminished at the bases. Kristan ngs are clear otherwise. Chest x-ray done 2 months ago revealed diffuse pulmonary edema on previous admissions. ABDOMEN: Soft, nontender, protuberant. Bowel sounds are active. EXTREMITIES: Femoral pulses are 2+. Pedal pulses are 1+ with 1+ peripheral edema. LABORATORY VALUES: Hematocrit of 37. Chemistry with a creatinine 0.8. PLAN: This patient could consider undergoing multivalve surgery. We would perform mitral valve repl acement, tricuspid valve repair or replacement, and consider aortic valve replacement or at least cristal ridement of annular calcification. She could always undergo delayed staging with TAVR in the future, should that stenosis become more significant. Her risk is 6% to 8% for mortality, morbidity exceeds 50%. The patient's family wishes to discuss options. We did discuss experimental mitral valve and simultaneously aortic valve catheter based therapies at an outside institution if they were opposed t o surgery. I do think the combined stroke risk in that situation is significant, given the amount of calcium in both valves and in the aortic mitral curtain. /[id number]/MODL
[2017-11-03] MEDS: ATORVASTATIN CALCIUM 10 MG TAB PO SCH (18:42)
[2017-11-03] MEDS: FERROUS SULFATE 325 MG TAB PO SCH (21:00)
[2017-11-03] MEDS: CLOPIDOGREL BISULFATE 75 MG TAB PO SCH (21:02)
[2017-11-04] MEDS: PANTOPRAZOLE SODIUM 40 MG TAB PO SCH (10:38)
[2017-11-04] MEDS: SPIRONOLACTONE 25 MG TAB PO SCH (10:38)
[2017-11-04] MEDS: ASPIRIN 81 MG CHEWABLE TAB PO SCH (10:38)
[2017-11-04] MEDS: CHOLECALCIFEROL VIT D3 1,000 UNITS TAB PO SCH (10:38)
[2017-11-04] MEDS: NIACIN ER 500 MG TAB.ER PO SCH (10:38)
[2017-11-04] MEDS: METOPROLOL SUCCINATE XR 25 MG TAB PO SCH (10:38)
[2017-11-04] MEDS: OMEGA-3 FATTY ACIDS 1,000 MG CAP PO SCH (10:39)
[2017-11-04] MEDS: FUROSEMIDE 20 MG TAB PO SCH (10:40)
--- NOTE | 2017-11-04 12:00 | ASMTCMCOM ---
CM Note CM Note Notes: CM met w/ pt and family for dispo planning. Pt is not interested in any HC or nonskilled care at this time. Daughter was curious about the non skilled care and CM provided pts daughter w/ a list of agencies. CM spoke w/ LUIS Coates regarding this case. CM available for changes. Plan: Independent Date Signed: 11/04/2017 11:59 AM Electronically Signed By:BLAKE Francois
[2017-11-04 12:02] VITALS: BP 117/64
--- NOTE | 2017-11-04 12:36 | PDCARPN ---
Cardiology Progress Note Chief Complaint: Patient doing well today. No cardiovascular complaints. Assessment/Plan: Assessment: 11-04-[address] well today. CT surgery did meet with the patient yesterday, and according to the patient/family, has plans for revisitation today. PCP (Dr. Alma Cheng) stopped by to talk with the patient this morning as well. No chest pains or pressure. No PND or orthopnea Patient wanting to go home today (to [place]), but uncertain of timing of the surgical procedure. Long discussion today with patient about the need to address the noted pathology given there have been several episodes to suggest surgery is needed sooner rather than later. 11-03-17 No cardiovascular complaints today. No chest pains or pressure. Mild dyspnea was noted last night with lying down, and resolution was noted with sitting up ( ? PND/orthopnea). Breath sounds this morning were normal. Patient is scheduled for angiography today (right, left, and cors), but the cath schedule is busy, and I am not wanting to have the patient NPO all day. Will keep patient posted on the schedule progress to determine time of procedure. Briefly mentioned that she will likely need to have valve surgery (mitral, aortic, and tricuspid), but this was, according to the patient, something "new" to her that had not been discussed previously (?). 11-02-17 Patient is an 82 y/o female, known to [facility] (Dr. Bill Taveras), with history of CAD s/p PCI (mLAD; 06/2017), GERD (with history of GI bleed earlier this year), MELANIE with CPAP use, and valve pathology (severe mitral stenosis, mild /mod , and severe TR), who presents to [facility] as a direct admission after complaints of dyspnea and malaise at elevation (home). At present, the patient is resting comfortably without active cardiovascular complaints (no chest pains or pressure, no PND or orthopnea, no dyspnea or diaphoresis, no dizziness or lightheadedness). The last outpatient office note from Dr. Bill Taveras (10-14-17) was reviewed, and at that point, plans were made for JENNY to better visualize the noted valve pathology. Surface echo from 08/28/17 with normal LVEF (65%), severe mitral stenosis (mean gradient of 11 mm Hg), moderate aortic sclerosis with stenosis (mean gradient was 20 mm Hg) with severe tricuspid regurgitation and right ventricular systolic pressures of 70 mm Hg. JENNY from 10-26-17 with similar findings to the valve pathology (mean gradient through the mitral valve was 9 mm Hg, and mean gradient of the aortic valve was not reported on the JENNY, but visually, moderate to severe aortic stenosis appreciated). The ejection fraction by JENNY was reported as "mildly reduced" without a number reported. Plans after the JENNY were for pursuit of right, left, and cor assessment to reexamine gradients as well as coronary anatomy. This angiogram was scheduled for this (11-05-17). Ongoing use of ASA and Plavix for the CAD/PCI history. Eliquis was being used for DVT concerns, but after GI bleeding, this therapy was stopped (08/2017). At present, the patient is resting comfortably. No acute cardiovascular complaints are voiced at present. There was mild dyspnea as elevation, but this has resolved with relocation to [place]. Plan: (1) Aldactone and Toprol should continue for HTN management (2) Statins for HLP to continue (3) Lasix to continue given the symptoms reported (4) PPI therapy to continue (5) CT surgery to work with patient to achieve schedule for valve replacement/ repair. Subjective: No cardiovascular complaints today. Reviewed/Discussed With: family, hospitalist Objective: Vital Signs (8 Hrs) Temp Pulse Resp BP Pulse Ox 11/04/17 12:00 36.7 C 98 17 117/64 96 11/04/17 09:36 87 100/56 L 92 11/04/17 07:41 36.9 C 89 15 87/46 L 96 Intake/Output (24 Hrs) 11/03/17 11/04/17 11/05/17 05:59 05:59 05:59 Intake Total 390 1140 Output Total 950 1550 Balance -560 -410 Intake: Oral (ml) 390 1140 Output: Urine (ml) 950 1550 Toilet 950 1550 Other: Weight 80.1 kg Number of Voids Toilet 1 1 Result Diagrams: 11/03/17 09:18 11/03/17 09:18 Telemetry: normal sinus rhythm - Physical Exam Constitutional: WDWN, healthy appearing, no apparent distress Eyes: PERRL, EOMI Ears, Nose, Mouth, Throat: moist mucous membranes Cardiovascular: regular rate and rhythm, systolic murmur, diastolic murmur, pulses symmetric bilat, No jugular vein distention Respiratory: clear to auscultate bilat, no crackles Gastrointestinal: normoactive bowel sounds Skin: no rashes, no edema Neurologic: AAOx3, CN II-XII grossly intact Psychiatric: cooperative, interactive, following commands ICD10 Worksheet Patient Problems: Problems Problem Status Onset Mitral stenosis Acute Symptomatic anemia Acute
--- NOTE | 2017-11-07 04:31 | GDS ---
[f rep st] DISCHARGE SUMMARY ADMISSION DIAGNOSES: 1. Pulmonary edema. 2. Valvular heart disease. DISCHARGE DIAGNOSES: 1. Pulmonary edema. 2. Valvular heart disease. 3. Coronary artery disease status post stent placement. HOSPITAL COURSE: The patient was admitted with shortness of breath. Shortness of breath improved delgado bstantially with oxygen and mild diuretics. She did have lowering of blood pressures. She was seen in consultation by Cardiology and proceeded with a diagnostic cath with right and left heart catheter ization to evaluate severity of her mitral stenosis. She was found to have substantially elevated pu lmonary occlusive pressures, as well as evidence of mitral stenosis and aortic stenosis. She was see n in consultation by Dr. Cantu in Cardiovascular Surgery, and options were discussed. She wanted to go home and consider her options, and considering how stable and well she was doing, she elected to d o so. She is being discharged to home. She will follow up with Dr. Cantu and discuss the options fo r surgery. /[id number]/MODL
== END 2017-11-04 14:48 | disposition home or self-care (01) | DRG 287 ==
LOC: F2W 13:06 → OBSVTOIN 13:06
PROVIDERS: ADMIT Internal Medicine; ATTEND Internal Medicine
DX: I50.9 Heart failure, unspecified (principal); I08.3 Combined rheumatic disorders of mitral, aortic and tricuspid valves; I25.10 Atherosclerotic heart disease of native coronary artery without angina pectoris; E03.9 Hypothyroidism, unspecified; G47.30 Sleep apnea, unspecified; D53.9 Nutritional anemia, unspecified; C81.90 Hodgkin lymphoma, unspecified, unspecified site; E78.5 Hyperlipidemia, unspecified; Z87.891 Personal history of nicotine dependence; Z95.5 Presence of coronary angioplasty implant and graft
CPT/HCPCS: C1760; G0378; G0379; J1200; J1644; J2250; J3010; Q9967

== ENCOUNTER → 2017-12-01 | Outpatient (CLI) | payer OTHER, MEDICARE | LOC: BHFA 15:30 | PROVIDERS: ATTEND Internal Medicine Cardiovascular Disease | DX: Z01.810 Encounter for preprocedural cardiovascular examination (principal) ==

== ENCOUNTER 2017-12-02 05:33 | Inpatient (IN) | payer OTHER, MEDICARE ==
[2017-12-02] MEDS ORDERED: VERAPAMIL 5 MG, NITROGLYCERIN 2.5 MG, HEPARIN 500 UNIT, SODIUM BICARBONATE 0.2 MEQ in L... MISC ONE (06:00)
[2017-12-02] MEDS ORDERED: PHENYLEPHRINE HCL 50 MG in NS 250 ML IV ONE (06:00)
[2017-12-02] MEDS ORDERED: AMINOCAPROIC ACID 5 GM/20 ML VIAL IV ONE (06:00)
[2017-12-02] MEDS ORDERED: INSULIN REGULAR HUMAN 100 UNIT in NS 100 ML IV ONE (06:00)
[2017-12-02] MEDS ORDERED: MANNITOL 25% 12.5 GM/50 ML VIAL IVP ONE (06:00)
[2017-12-02] MEDS ORDERED: SODIUM BICARBONATE 20 MEQ, LIDOCAINE 1% 10 ML in NORMOSOL-R 1,000 ML MISC ONE (06:00)
[2017-12-02] MEDS ORDERED: NOREPINEPHRINE BITARTRATE 16 MG in NS 250 ML IV ONE (06:00)
[2017-12-02] MEDS ORDERED: ceFAZolin 2 GM/DEXTROSE 100 ML IV ONE (06:19)
[2017-12-02] MEDS ORDERED: CITRATE DEXTROSE SOLN 500 ML BAG MISC ONE (06:19)
[2017-12-02] MEDS ORDERED: MUPIROCIN 2% 22 GM OINT NS ONE (06:19)
[2017-12-02] MEDS ORDERED: niCARdipine/NACL 200 ML IV ONE (06:19)
[2017-12-02] MEDS ORDERED: LIDOCAINE 1% 2 ML INJ ID PRN (06:20)
[2017-12-02] MEDS ORDERED: LR 1,000 ML IV ONE (06:20)
[2017-12-02] MEDS ORDERED: ALBUMIN 5% 250 ML BOTTLE IV ONE ×2 (06:44→12:17)
[2017-12-02] MEDS ORDERED: PROTAMINE SULFATE 50 MG/5 ML VIAL IVP ONE (06:44)
[2017-12-02] MEDS ORDERED: NA BICARBONATE 50 MEQ/50 ML VIAL ONE (06:44)
[2017-12-02] MEDS ORDERED: CALCIUM CHLORIDE 1 GM/10 ML INJ ONE (06:44)
[2017-12-02] MEDS ORDERED: MILRINONE/DEXTROSE/100 ML BAG IV ONE (06:44)
[2017-12-02] MEDS ORDERED: ADENOSINE 6 MG/2 ML VIAL ONE (06:45)
[2017-12-02] MEDS ORDERED: AMIODARONE HCL 150 MG/3 ML VIAL ONE (06:45)
[2017-12-02] MEDS ORDERED: DOPamine/DEXTROSE 400 MG/250 ML BAG IV ONE (06:45)
[2017-12-02] MEDS ORDERED: CITRATE DEXTROSE SOLN 500 ML BAG ONE (06:45)
[2017-12-02] MEDS ORDERED: niCARdipine/NACL/200 ML BAG IV ONE (06:45)
[2017-12-02] MEDS ORDERED: HEPARIN 10,000 UNIT/10 ML MDV (1,000 UNIT/ML) ONE (06:45)
[2017-12-02] MEDS ORDERED: LIDOCAINE 2% 100 MG/5 ML SYR ONE ×2 (06:45→07:17)
[2017-12-02] MEDS ORDERED: ceFAZolin 1 GM VIAL ONE (06:46)
[2017-12-02] MEDS ORDERED: methylPREDNISolone SOD SUCC 1 GM/8 ML VIAL ONE (06:46)
[2017-12-02] MEDS ORDERED: NITROGLYCERIN/D5W 50 MG/250 ML BOTTLE IV ONE (06:46)
[2017-12-02] MEDS ORDERED: MAGNESIUM SULFATE 1 GM/2 ML VIAL ONE (06:46)
[2017-12-02] MEDS ORDERED: MIDAZOLAM 2 MG/2 ML VIAL IVP ONE (06:59)
--- NOTE | 2017-12-02 06:59 | PDANEPAE ---
ANE History of Present Illness female with MS, and TR s/f MVR, TVR and ?AVR (R=repair vs replace) ANE Past Medical History - Cardiovascular History Hx Hypertension: Yes Hx Arrhythmias: No Hx Chest Pain: No Hx Coronary Artery / Peripheral Vascular Disease: Yes Hx CHF / Valvular Disease: Yes Hx Palpitations: No Cardiovascular History Comment: severe mitral & aortic valve stenosis. tricuspid regurg - Pulmonary History Hx COPD: No Hx Asthma/Reactive Airway Disease: No Hx Recent Upper Respiratory Infection: No Hx Oxygen in Use at Home: Yes O2 in Use at Home (L/minute): 2.L at noc Hx Sleep Apnea: Yes Sleep Apnea Screening Result - Last Documented: Positive Pulmonary History Comment: pt does not use C-PAP - Neurologic History Hx Cerebrovascular Accident: No Hx Seizures: No Hx Dementia: No - Endocrine History Hx Diabetes: No - Renal History Hx Renal Disorders: No - Liver History Hx Hepatic Disorders: No - Neurological & Psychiatric Hx Hx Neurological and Psychiatric Disorders: Yes Neurological / Psychiatric History Comment: situational anxiety - Cancer History Hx Cancer: Yes Cancer History Comment: hodgkins lymphoma - Congenital Disorder History Hx Congenital Disorders: No - GI History Hx Gastrointestinal Disorders: Yes Gastrointestinal History Comment: reflux - Other Health History Other Health History: briuses easily - Chronic Pain History Chronic Pain: No - Surgical History Prior Surgeries: stent placed jul & august 2017. tka 2010. back sx ANE Review of Systems Review of Systems: - Exercise capacity METS (RN): 2 METS ANE Patient History - Allergies Allergies/Adverse Reactions: No Known Allergies Allergy (Verified 11/25/17 14:25) - Home Medications Home medications: home medication list seen and reviewed Home Medications: Aspirin [Aspirin 81mg (*)] 81 mg PO DAILY 08/27/17 [Last Taken 12/01/17] Clopidogrel Bisulfate [Plavix (*)] 75 mg PO HS 08/27/17 [Last Taken 11/26/17] Herbals/Supplements -Info Only 1 ea PO DAILY 08/27/17 [Last Taken Unknown] Niacin ER [Niaspan 500 mg (*)] 500 mg PO BID 08/27/17 [Last Taken 11/26/17] [place]-3 Fatty Acids [Fish Oil 1000 mg (*)] 1,000 mg PO DAILY 08/27/17 [Last Taken 12/01/17] Cholecalciferol Vit D3 [Vitamin D3 (*)] 1,000 units PO DAILY 10/29/17 [Last Taken 11/26/17] Pantoprazole Sodium [Protonix 40mg (*)] 40 mg PO BID 10/29/17 [Last Taken ] Simvastatin [Zocor] 20 mg PO HS 10/29/17 [Last Taken 11/01/17] Furosemide [Lasix 20 MG (*)] 20 mg PO DAILY 11/02/17 [Last Taken 12/01/17] Spironolactone [Aldactone 25 MG (*)] 25 mg PO DAILY 11/02/17 [Last Taken ] - Smoking Hx Smoking Status: Former smoker - Family Anes Hx Family Hx Anesthesia Complications: none ANE Labs/Vital Signs - Labs - CBC WBC: reviewed and okay - Vital Signs Height: 157.4 cm Weight: 80.8 kg ANE Physical Exam - Airway Mallampati Score: Class 2 Mouth exam: normal dental/mouth exam - Pulmonary Pulmonary: no respiratory distress - Cardiovascular Cardiovascular: regular rate and rhythym - ASA Status ASA Status: III ANE Anesthesia Plan Anesthesia Plan: general endotracheal anesthesia Lines/Monitors: arterial line, central line, JENNY (+/- extubation in the OR)
[2017-12-02] MEDS ORDERED: DEXMEDETOMIDINE HCL 400 MCG in NS 100 ML IV SCH (07:00)
[2017-12-02] MEDS ORDERED: MINERAL OIL 10 ML VIAL ONE (07:08)
[2017-12-02] MEDS ORDERED: LIDOCAINE HCL 160 MG/4 ML LTA KIT TP ONE (07:13)
[2017-12-02] MEDS ORDERED: DEXAMETHASONE 4 MG/ML VIAL ONE ×2 (07:14)
[2017-12-02] MEDS ORDERED: ROCURONIUM 100 MG/10 ML VIAL ONE (07:14)
[2017-12-02] MEDS ORDERED: ONDANSETRON 4 MG/2 ML VIAL ONE (07:15)
[2017-12-02] MEDS ORDERED: PHENYLEPHRINE HCL 100 MCG/ML SYR ONE (07:15)
[2017-12-02] MEDS ORDERED: fentaNYL 250 MCG/5 ML INJ ONE (07:18)
[2017-12-02] MEDS ORDERED: MIDAZOLAM 2 MG/2 ML VIAL ONE (07:18)
[2017-12-02] MEDS ORDERED: REMIFENTANIL HCL 1 MG VIAL ONE (07:18)
[2017-12-02] MEDS ORDERED: PROPOFOL/EMULSION 500 MG/50 ML BOTTLE IV ONE (07:18)
[2017-12-02] MEDS ORDERED: DEXMEDETOMIDINE IN 0.9 % NACL 100 ML IV SCH (07:30)
[2017-12-02] MEDS ORDERED: SUGAMMADEX SODIUM 200 MG/2 ML VIAL IVP ONE (12:09)
[2017-12-02] MEDS ORDERED: MAGNESIUM SULF 2 GM/WATER 50 ML BAG IV ONE (12:17)
[2017-12-02] MEDS ORDERED: LACTULOSE 20 GM/30 ML UDCUP PO PRN (12:31)
[2017-12-02] MEDS ORDERED: ACETAMINOPHEN 325 MG TAB PO PRN (12:31)
[2017-12-02] MEDS ORDERED: ONDANSETRON 4 MG/2 ML VIAL IVP PRN (12:31)
[2017-12-02] MEDS ORDERED: ONDANSETRON DISINTEGRATING 4 MG TAB PO PRN (12:31)
[2017-12-02] MEDS ORDERED: POLYETHYLENE GLYCOL 3350 17 GM PKT PO PRN (12:31)
[2017-12-02] MEDS ORDERED: PANTOPRAZOLE SODIUM 40 MG VIAL IVP ONE (12:31)
[2017-12-02] MEDS ORDERED: D50W 25 GM/50 ML SYR IVP PRN (12:31)
[2017-12-02] MEDS ORDERED: MAGNESIUM SULF 2 GM/WATER 50 ML IV ONE (12:31)
[2017-12-02] MEDS ORDERED: METOCLOPRAMIDE 10 MG/2 ML VIAL IVP PRN (12:31)
[2017-12-02] MEDS ORDERED: SODIUM CL NASAL 45 ML BTL EACHNARE PRN (12:31)
[2017-12-02] MEDS ORDERED: BISACODYL 10 MG SUPP PR PRN (12:31)
[2017-12-02] MEDS ORDERED: CEPACOL LOZENGE PO PRN (12:31)
[2017-12-02] MEDS ORDERED: ACETAMINOPHEN 650 MG SUPP PR PRN (12:31)
[2017-12-02] MEDS ORDERED: MAGNESIUM HYDROXIDE 30 ML UDCUP PO PRN (12:31)
[2017-12-02] MEDS ORDERED: fentaNYL 100 MCG/2 ML INJ IVP PRN (12:31)
[2017-12-02] MEDS ORDERED: MEPERIDINE 25 MG/0.5 ML AMP IVP PRN (12:31)
[2017-12-02] MEDS ORDERED: NS 1,000 ML IV SCH (12:45)
[2017-12-02] MEDS: INSULIN REGULAR HUMAN 100 UNIT in NS 100 ML IV SCH (12:50)
--- NOTE | 2017-12-02 12:52 | PDMN ---
Medical Necessity Medical necessity: [facility] IP only surgery, cpt 78361, [id number] & [id number] Cardiac Valve Replacement (MVR/AVR/TVA)
[2017-12-02] MEDS ORDERED: niCARdipine/NACL 200 ML IV SCH (13:00)
[2017-12-02] MEDS: ALBUMIN 5% 250 ML IV PRN ×4 (13:00→17:09)
[2017-12-02] MEDS ORDERED: KETOROLAC 15 MG/1 ML SDV ONE (13:15)
[2017-12-02] MEDS ORDERED: KETOROLAC 15 MG/1 ML SDV IVP ONE (13:30)
--- NOTE | 2017-12-02 14:17 | GOP ---
[f rep st] OPERATIVE REPORT DATE OF OPERATION: 12/02/2017 SURGEON: Jf Cantu DO OIL PAINT SHADER: Brandon Garcia PA-C. ANESTHESIA: Adrien Corado MD. PREOPERATIVE DIAGNOSIS: 1. Mitral stenosis secondary to calcific changes. 2. Aortic stenosis with mild aortic insufficiency. 3. Severe tricuspid insufficiency. 4. Class IV congestive heart failure. POSTOPERATIVE DIAGNOSIS: 1. Mitral stenosis secondary to calcific changes. 2. Aortic stenosis with mild aortic insufficiency. 3. Severe tricuspid insufficiency. 4. Class IV congestive heart failure. PROCEDURE PERFORMED: 1. Mitral valve replacement with a #25 Magna bioprosthesis with extensive calcium debridement of the entire anulus. 2. Tricuspid ring annuloplasty with a #28 annuloplasty ring. 3. Aortic valve repair with extensive debridement. FINDINGS: Patient presented with multiple re admissions for congestive heart failure, was found to h ave severe mitral stenosis, moderate aortic stenosis, and severe tricuspid insufficiency. She was re ferred for surgical intervention. DESCRIPTION OF PROCEDURE: She was consented, brought to the operating room, intubated, and monitorin g lines were placed. She was prepped and draped in sterile classical manner. JENNY was performed by A di. A sternotomy was performed. The patient was heparinized. The pericardium was opened. T he aorta had patchy calcification in segment 1 and segment 3 confirmed with surface echo on the aorta . Cannulation was performed to avoid those areas. Bicaval cannulas were placed as well as antegrade and retrograde cardioplegia. Intraoperative JENNY confirmed mild aortic insufficiency with moderate a ortic stenosis and other findings per preoperative echo. After cannulation, cardiopulmonary bypass was begun. The aorta was crossclamped in segment 2 where t here was no calcification with intermittent antegrade and retrograde cardioplegia, topical hypothermi a, and systemic cooling. Initially, the mitral valve was exposed through the right superior pulmonar y vein. A retractor was placed. The atrium was small. There was heavy shelf of calcification exten ding from approximately 9 o'clock to 12 o'clock from the medial commissure up to the midportion of th e anterior leaflet extending in and through the leaflet. This leaflet was excised. There was no kirk nce to preserve her anterior leaflet because of very small tight chamber, a very small anulus, and pn eumonic calcification. I then spent some time using multiple modalities including CUSA to debride ca lcium in the anulus and in the left ventricular outflow tract portion of the anterior leaflet so that it was then pliable and could be sutured to. We then removed part of the posterior leaflet medially at P1 and did extensive calcium debridement between the atria and ventricle, taking out the entire m uscle bar posteriorly, utilizing rongeurs and CUSA as well as sharp dissection. I then placed circum ferential sutures when the calcium was removed, leaving part of the posterior leaflet at P2 and P3, a nd deep bites reapproximated the atrium and ventricle and brought it through a 25 mm Magna valve whic h was secured in place without difficulty. LV chamber had been copiously irrigated. The left atrium was then closed. The appendage was rather scarred and adherent to the back of the heart and was mónica te friable. I, therefore, did not close it from inside her outside muscle because of the presence of the large circumflex, very close to the edge of it, and it was a shallow, wide-based appendage, and I felt that it would be unsafe to try to address. I then exposed the tricuspid valve in standard fashion. It was small, thickened, and retracted. The patient was sized for a 28 ring which was secured in place with Cor-Knots. Right atrium was closed. Rewarming was begun while an aortotomy was performed. The root of the noncoronary sinus was endart erectomized in order to facilitate ultimate closure because of heavy calcium in that area. Also, bet ween the left and right commissure, there was heavy calcification which was debrided in the aorta and in the sinus. I then used the CUSA to debride calcium on the leaflets in the central portion and al omaira the anulus of all 3 leaflets where they were rather fixed and rigid. Ultimately, the leaflets we re quite pliable. We stayed away from the edges and did very little in the middle of the leaflet, st aying almost entirely on the anulus. This was irrigated. The aortotomy was closed in a 2-layer fash ion. The cross-clamp was removed with suction on the ascending aortic vent. LV sump was kept across the valve until no further air was seen in Trendelenburg, which was then removed. We then intermitt ently aspirated through the apex. When no further air was identified, the patient was easily weaned from bypass. Transesophageal echo confirmed good mitral valve function without any significant leak. The aortic valve was much more mobile, and the central leak was markedly improved to trace to mild only, and the tricuspid valve had mild tricuspid regurg at that point. Heparin was reversed with pro tamine. The cannula was removed and oversewn. 4 pacing wires, 1 right pleural and 2 mediastinal candy ins were placed. The thymic fat and pericardium were closed. Chest was closed in standard fashion. The patient was returned to ICU in stable condition. /[id number]/MODL
[2017-12-02] MEDS: ceFAZolin 2 GM/DEXTROSE 100 ML IV SCH ×2 (14:25→22:54)
[2017-12-02] MEDS ORDERED: ALBUMIN 5% 250 ML IV ONE ×2 (14:30→17:00)
[2017-12-02] MEDS: POTASSIUM Cl (KCl) 50 ML IV PRN ×2 (15:13→16:15)
[2017-12-02] MEDS: KETOROLAC 15 MG/1 ML SDV IVP SCH (17:38)
[2017-12-02] MEDS: SENNOSIDES/DOCUSATE SODIUM TAB PO SCH (19:51)
[2017-12-02] MEDS: MUPIROCIN 2% 22 GM OINT NS SCH (20:30)
[2017-12-02] MEDS: HYDROCODONE/APAP 5/325 TAB PO PRN (23:05)
[2017-12-03] MEDS: KETOROLAC 15 MG/1 ML SDV IVP SCH ×4 (00:14→17:47)
[2017-12-03 03:16] LABS: PLATELET COUNT 113 10^3/uL (150-400)
[2017-12-03] MEDS: ceFAZolin 2 GM/DEXTROSE 100 ML IV SCH ×3 (05:23→21:22)
[2017-12-03] MEDS: INSULIN REGULAR HUMAN 100 UNIT in NS 100 ML IV SCH (05:24)
[2017-12-03] MEDS: HEPARIN 5,000 UNIT/0.5 ML INJ SC SCH ×3 (05:25→21:20)
[2017-12-03 05:41] LABS: INR 1.39 (0.83-1.16); PROTIME(PATIENT) 17.2 SEC (12.0-15.0)
--- NOTE | 2017-12-03 07:51 | SOAPPROG ---
BREA Progress Note Assessment/Plan: POD #1: Debridement of mitral valve and replacement with #25 Hernandez Magna bioprosthesis, tricuspid valve annuloplasty with #28 Hernandez MC3 ring, aortic valve debridement Severe MS s/p debridement/replacment - Coumadin with INR goal 2-3, duration 3 months Severe TR s/p annuloplasty - Mgmt as per MVR Moderate s/p debridement - Mgmt as per MVR Acute blood loss anemia with coagulopathy - Stable s/p 2 PRBCs and 1 platelets Chronic class IV valvular CHF with diastolic dysfunction - Wean pressors as tolerated - HF meds when appropriate Post-op rhythm issues - Continue atrial-pacing Subjective: Denies pain/SOB. Objective: Vital Signs Temp Pulse Resp BP Pulse Ox 37.8 C 90 21 H 124/43 H 95 12/03/17 06:00 12/03/17 06:00 12/03/17 06:00 12/03/17 06:00 12/03/17 06:00 Laboratory Results 12/03/17 03:00 12/03/17 03:00 12/02/17 12/03/17 12/04/17 05:59 05:59 05:59 Intake Total 2144 Output Total 1920 Balance 224 PT 17.2 SEC (12.0-15.0) H 12/03/17 05:15 INR 1.39 (0.83-1.16) H 12/03/17 05:15 Physical Exam - Physical Exam General Appearance: WD/WN, alert, no apparent distress EENT: No scleral icterus (R), No scleral icterus (L) Neck: normal inspection Respiratory: No respiratory distress Cardiac/Chest: other (AP) Abdomen: non-tender, soft, No distended Skin: normal color, warm/dry Extremities: No pedal edema Neuro/Psych: no motor/sensory deficits, alert, normal mood/affect, oriented x 3 ICD10 Worksheet Patient Problems: Problems Problem Status Onset Acute blood loss anemia Acute Aortic stenosis Acute S/P aortic valve repair Acute S/P mitral valve replacement with bioprosthetic valve Acute S/P tricuspid valve repair Acute Tricuspid insufficiency Acute Mitral stenosis Acute Symptomatic anemia Acute
[2017-12-03] MEDS ORDERED: ASPIRIN 81 MG CHEWABLE TAB PO SCH (09:00)
[2017-12-03] MEDS: SENNOSIDES/DOCUSATE SODIUM TAB PO SCH ×2 (09:36→21:19)
[2017-12-03] MEDS: PANTOPRAZOLE SODIUM 40 MG TAB PO SCH ×2 (09:36→21:20)
[2017-12-03] MEDS: MUPIROCIN 2% 22 GM OINT NS SCH ×2 (09:36→21:22)
--- NOTE | 2017-12-03 11:38 | ASMTCASEMG ---
Living Arrangements What is your living Answers: With Partner arrangement? Who do you live with? Type Of Residence What kind of residence do Answers: House you live in? Discharge Plan Comments Coordination Status Comments Notes: Patient is an 82yo female with a life partner (Wilton) who was admitted for mitral valve replacement, tricuspid annuloplasty, and aortic valve repair with extensive debridement. OT/PT have been ordered. D/C plan TBD. CM will follow. Date Signed: 12/03/2017 11:38 AM Electronically Signed By:Ebony Caraballo LCSW
--- NOTE | 2017-12-03 14:08 | ECHO ---
[email or web address] [address] [address] Main: [phone] Fax: Transthoracic Echocardiogram Name: FERMIN ALFARO MR#: [id number] Study Date: 12/03/2017 Study Time: 07:14 AM Date of : 1935 Age: 82 year(s) Height: 154.9 cm (61 in.) Weight: 81.19 kg (179 lb.) BSA: 1.8 m2 Gender: Female Examination: Echo Indication: hypotension Image Quality: Technically Difficult Contrast: Requested by: Jf Cantu BP: 108 mmHg/38 mmHg Heart Rate: Rhythm: Indication: hypotension Procedure Staff Mold Carrier: Yoli Alonzo [facility] Reading Physician: Mark Tim MD Requesting Provider: Conclusions: Normal size left ventricle. No LV hypertrophy. Normal global systolic LV function. EF is 51 %. No regional wall motion abnormality. Normal diastolic LV function. Normal size right ventricle. A bioprothetic mitral valve is in place. The mitral valve prosthesis exhibits normal function. The prosthetic mitral valve is normal. No MV prosthesis regurgitation. The aortic valve is a bioprosthesis. The prosthetic aortic valve is normal. Mild prosthesis regurgitation. The prosthetic tricuspid valve is normal. No prosthesis regurgitation. no previous available Measurements: Chambers Valvular Assessment AV/MV Valvular Assessment TV/PV Normal Normal Normal Name Value Range Name Value Range Name Value Range LVEF (MOD4): 51 % (>=55 %) AV meanP mmHg ( - ) TV Vmax: 1.22 m/s (0.3 m/s-0.7 MV E Vmax: 1.39 m/s ( - ) m/s) MV A Vmax: 0.65 m/s ( - ) TV Vmean: 0.81 m/s ( - ) MV E/A: 2.14 ( - ) TV PGmax: 6 mmHg ( - ) MV meanP mmHg ( - ) TV PGmean: 3 mmHg ( - ) MV PHT: 0.054 s ( - ) TV VTI: 23.70 cm ( - ) MVA (PHT): 4.1 s ( - ) Patient: FERMIN ALFARO Study Date: 12/03/2017 Page 1 of 2 07:14 AM Continued Measurements: Valvular Assessment AV/MV Name Value MV DecTime: 190 m/s MV VTI: 41.60 cm Findings: Left Ventricle: Normal size left ventricle. No LV hypertrophy. Normal global systolic LV function. EF is 51 %. No regional wall motion abnormality. Normal diastolic LV function. Right Ventricle: Normal size right ventricle. Left Atrium: The left atrium is normal in size. Right Atrium: The right atrium is normal in size. Mitral Valve: A bioprothetic mitral valve is in place. The mitral valve prosthesis exhibits normal function. The prosthetic mitral valve is normal. No MV prosthesis regurgitation. Aortic Valve: The aortic valve is a bioprosthesis. The prosthetic aortic valve is normal. Mild prosthesis regurgitation. Tricuspid Valve: There is a tricuspid valve ring. The prosthetic tricuspid valve is normal. No prosthesis regurgitation. Pulmonic Valve: The pulmonic valve is normal in appearance and function. There is no pulmonic regurgitation seen. Aorta: The aorta is normal. Pericardium: No pericardial effusion. Possible pleural effusion. Exam Comments: Patient unable to move from chair to bed per RN. No visualization of parasternal due to shadowing post op and limited subcostal visualization. (No Signature Object) Patient: FERMIN ALFARO Study Date: 12/03/2017 Page 2 of 2 07:14 AM [id number]
[2017-12-03] MEDS ORDERED: FUROSEMIDE 20 MG/2 ML VIAL IV ONE (14:15)
--- NOTE | 2017-12-03 14:15 | PDINTPN ---
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 Insulin PRN. Continue oxygen with sleep 12/03/17 14:15 12/03/17 14:19 Subjective: Feels OK, sharp CP with movement resolved with rest. Objective: Vital Signs Temp Pulse Resp BP Pulse Ox 37.5 C 90 25 H 124/48 H 97 12/03/17 08:00 12/03/17 10:00 12/03/17 10:00 12/03/17 10:00 12/03/17 10:00 Laboratory Results 12/03/17 03:00 12/03/17 03:00 12/02/17 12/03/17 12/04/17 05:59 05:59 05:59 Intake Total 2144 Output Total 1920 205 Balance 224 -205 PT 17.2 SEC (12.0-15.0) H 12/03/17 05:15 INR 1.39 (0.83-1.16) H 12/03/17 05:15 Physical Exam - Physical Exam General Appearance: alert, no apparent distress EENT: normal ENT inspection Neck: normal inspection Respiratory: lungs clear, normal breath sounds Cardiac/Chest: regular rate, rhythm, No edema Abdomen: normal bowel sounds, non-tender Skin: warm/dry Extremities: non-tender, normal inspection Neuro/Psych: alert, normal mood/affect, oriented x 3 ICD10 Worksheet Patient Problems: Problems Problem Status Onset Acute blood loss anemia Acute Aortic stenosis Acute S/P aortic valve repair Acute S/P mitral valve replacement with bioprosthetic valve Acute S/P tricuspid valve repair Acute Tricuspid insufficiency Acute Mitral stenosis Acute Symptomatic anemia Acute
[2017-12-03] MEDS: HYDROCODONE/APAP 5/325 TAB PO PRN ×2 (15:01→21:20)
[2017-12-03] MEDS ORDERED: NOREPINEPHRINE BITARTRATE 16 MG in NS 250 ML IV SCH (18:30)
[2017-12-04] MEDS: KETOROLAC 15 MG/1 ML SDV IVP SCH ×2 (00:07→08:47)
[2017-12-04 05:22] LABS: PLATELET COUNT 97 10^3/uL (150-400)
[2017-12-04 05:28] LABS: INR 1.23 (0.83-1.16); PROTIME(PATIENT) 15.7 SEC (12.0-15.0)
[2017-12-04] MEDS: HEPARIN 5,000 UNIT/0.5 ML INJ SC SCH (06:25)
--- NOTE | 2017-12-04 06:46 | SOAPPROG ---
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 Patel - bleeding risk while on Coumadin discussed - BB/Plavix/statin for secondary prevention when appropriate Subjective: Denies chest pain/SOB. Throat is sore. Objective: Vital Signs Temp Pulse Resp BP Pulse Ox 36.4 C 90 22 H 96/49 L 94 12/04/17 05:00 12/04/17 05:00 12/04/17 05:00 12/04/17 05:00 12/04/17 05:00 Laboratory Results 12/04/17 05:00 12/04/17 05:00 12/03/17 12/04/17 12/05/17 05:59 05:59 05:59 Intake Total 2144 1913.8 Output Total 1920 1240 Balance 224 673.8 PT 15.7 SEC (12.0-15.0) H 12/04/17 05:00 INR 1.23 (0.83-1.16) H 12/04/17 05:00 Physical Exam - Physical Exam General Appearance: WD/WN, alert, no apparent distress EENT: No scleral icterus (R), No scleral icterus (L) Neck: normal inspection Respiratory: No respiratory distress Cardiac/Chest: bradycardia, other (AP) Abdomen: non-tender, soft, No distended Skin: normal color, warm/dry Extremities: pedal edema Neuro/Psych: no motor/sensory deficits, alert, normal mood/affect, oriented x 3 ICD10 Worksheet Patient Problems: Problems Problem Status Onset Acute blood loss anemia Acute Aortic stenosis Acute S/P aortic valve repair Acute S/P mitral valve replacement with bioprosthetic valve Acute S/P tricuspid valve repair Acute Tricuspid insufficiency Acute Mitral stenosis Acute Symptomatic anemia Acute
[2017-12-04] MEDS: HYDROCODONE/APAP 5/325 TAB PO PRN ×2 (06:54→16:14)
[2017-12-04] MEDS ORDERED: KETOROLAC 15 MG/1 ML SDV IVP PRN (07:14)
[2017-12-04] MEDS ORDERED: FUROSEMIDE 20 MG/2 ML VIAL IVP ONE (07:28)
[2017-12-04] MEDS: SENNOSIDES/DOCUSATE SODIUM TAB PO SCH ×2 (10:08→20:16)
[2017-12-04] MEDS: MUPIROCIN 2% 22 GM OINT NS SCH (10:09)
[2017-12-04] MEDS: PANTOPRAZOLE SODIUM 40 MG TAB PO SCH ×2 (10:09→20:16)
[2017-12-04] MEDS ORDERED: FUROSEMIDE 20 MG/2 ML VIAL ONE (12:01)
--- NOTE | 2017-12-04 14:21 | ASMTCMCOM ---
CM Note CM Note Notes: PT is recommending home with no further services. Patient may stay in a hotel for 1 week prior to returning to [place], [place]. CM available if d/c needs arise. Date Signed: 12/04/2017 02:20 PM Electronically Signed By:Ebony Caraballo LCSW
[2017-12-04] MEDS ORDERED: WARFARIN SODIUM 1 MG TAB PO ONE (16:00)
[2017-12-04] MEDS: CLOPIDOGREL BISULFATE 75 MG TAB PO SCH (20:16)
[2017-12-05] MEDS: HYDROCODONE/APAP 5/325 TAB PO PRN (01:45)
[2017-12-05 05:22] LABS: INR 1.26 (0.83-1.16)
--- NOTE | 2017-12-05 07:58 | SOAPPROG ---
HAZELAP Progress Note Assessment/Plan: Assessment: POD#3 MVR#25 Magna bioprosthesis, TVA#28 MC3 ring, aortic valve debridement Severe MS - s/p tissue valve replacement - Coumadin with INR goal 2-3, duration 3 months Severe TR - s/p annuloplasty - Mgmt as per MVR Moderate - amenable to debridement - Mgmt as per MVR Acute expected blood loss anemia with coagulopathy - Stable s/p 1u PRBC and 1u Plt - Care with anticoag while plts depressed. VTE prophylaxis with plavix and coumadin. 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 Patel - bleeding risk while on Coumadin discussed - Eventual secondary prevention with BB/DAPT/statin when appropriate Plan: Remove mediastinal drains. Stop levophed. Accept SBP > 89. VVI backup at 56. Colloid prn CVP < 12. Coumadin 2 mg today. Inc activity as tolerated. SDU status. Dispo - Anticipate SNF in a few days 12/05/17 07:52 Subjective: Comfortable at rest. Easily fatigued with activity. Reliant on assistance for transfers. Not much appetite for anything other than smoothies. Sleepy on [place]. Objective: Vital Signs Temp Pulse Resp BP Pulse Ox 36.9 C 82 22 H 101/41 L 94 12/05/17 04:00 12/05/17 07:00 12/05/17 07:00 12/05/17 07:00 12/05/17 07:00 Laboratory Results 12/05/17 05:00 12/05/17 05:00 12/04/17 12/05/17 12/06/17 05:59 05:59 05:59 Intake Total 1936.8 1593 Output Total 1240 1345 Balance 696.8 248 PT 16.0 SEC (12.0-15.0) H 12/05/17 05:00 INR 1.26 (0.83-1.16) H 12/05/17 05:00 AVpaced. 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 Levo @ 1 mcg for SBP > 90. Balanced I/Os. Min suppl O2 req. CTOP approaching removal criteria. INR yet to budge. Physical Exam - Physical Exam General Appearance: alert, no apparent distress Respiratory: crackles (bilat), other (blakes x 3 to bulb suction, thin serosang drainage) Cardiac/Chest: regular rate, rhythm, other (Sternotomy CDI) Abdomen: non-tender, soft Skin: warm/dry Extremities: swelling (1+ gen) ICD10 Worksheet Patient Problems: Problems Problem Status Onset Acute blood loss anemia Acute Aortic stenosis Acute S/P aortic valve repair Acute S/P mitral valve replacement with bioprosthetic valve Acute S/P tricuspid valve repair Acute Tricuspid insufficiency Acute Mitral stenosis Acute Symptomatic anemia Acute
[2017-12-05] MEDS: SENNOSIDES/DOCUSATE SODIUM TAB PO SCH ×2 (08:49→20:18)
[2017-12-05] MEDS: PANTOPRAZOLE SODIUM 40 MG TAB PO SCH ×2 (08:49→20:18)
[2017-12-05] MEDS ORDERED: traMADol 50 MG TAB PO PRN (12:00)
--- NOTE | 2017-12-05 13:14 | PDINTPN ---
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 ? cause Plan: Follow BSs. Insulin PRN. Continue oxygen with sleep Follow Hgb, tongue swelling 12/05/17 13:13 Subjective: Feels OK, c/o some tongue swelling. Strength improving. Objective: Vital Signs Temp Pulse Resp BP Pulse Ox 36.5 C 83 18 104/41 L 100 12/05/17 12:00 12/05/17 12:00 12/05/17 12:00 12/05/17 12:00 12/05/17 12:00 Laboratory Results 12/05/17 05:00 12/05/17 05:00 12/04/17 12/05/17 12/06/17 05:59 05:59 05:59 Intake Total 1936.8 1593 Output Total 1240 1345 150 Balance 696.8 248 -150 PT 16.0 SEC (12.0-15.0) H 12/05/17 05:00 INR 1.26 (0.83-1.16) H 12/05/17 05:00 Physical Exam - Physical Exam General Appearance: alert, no apparent distress EENT: other (tonngue slightly swollen, not obstructing) Neck: normal inspection Respiratory: lungs clear, normal breath sounds Cardiac/Chest: normal peripheral pulses, regular rate, rhythm, edema Abdomen: normal bowel sounds, non-tender Skin: normal color, warm/dry Extremities: normal inspection Neuro/Psych: alert, normal mood/affect, oriented x 3 ICD10 Worksheet Patient Problems: Problems Problem Status Onset Acute blood loss anemia Acute Aortic stenosis Acute S/P aortic valve repair Acute S/P mitral valve replacement with bioprosthetic valve Acute S/P tricuspid valve repair Acute Tricuspid insufficiency Acute Mitral stenosis Acute Symptomatic anemia Acute
[2017-12-05] MEDS ORDERED: WARFARIN SODIUM 2 MG TAB PO ONE (16:00)
[2017-12-05] MEDS ORDERED: ALBUMIN 5% 250 ML BOTTLE IV ONE (19:26)
[2017-12-05] MEDS ORDERED: AMIODARONE A.FIB-LOAD DOSE(ORDER 1/3) PREMIX IV ONE (19:30)
[2017-12-05] MEDS ORDERED: AMIODARONE A.FIB-6HR INFSN (ORDER 2/3) PREMIX IV ONE (19:30)
[2017-12-05] MEDS ORDERED: ALBUMIN 5% 250 ML IV ONE (19:30)
[2017-12-05] MEDS: CLOPIDOGREL BISULFATE 75 MG TAB PO SCH (20:18)
[2017-12-06] MEDS ORDERED: AMIODARONE A.FIB-18HR INFSN (ORDER 3/3) IV ONE (01:30)
[2017-12-06 05:44] LABS: INR 1.8 (0.83-1.16)
--- NOTE | 2017-12-06 08:36 | SOAPPROG ---
SOAP Progress Note Assessment/Plan: Assessment: POD#4 MVR#25 Magna bioprosthesis, TVA#28 MC3 ring, aortic valve debridement Severe MS - s/p tissue valve replacement - Coumadin with INR goal 2-3, duration 3 months Severe TR - s/p annuloplasty - Mgmt as per MVR Moderate - amenable to debridement - Mgmt as per MVR - Persistent low diastolic pressure. Repeat limited echo to R/O AI. Acute expected blood loss anemia with coagulopathy - Stable s/p 1u PRBC and 1u Plt - Platelets appear to be rebounding - VTE prophylaxis with plavix and coumadin. 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 Ck echo. 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 Likely will need PPM. CAD - patent LAD stent placed Jun 2017 - Plavix for 1 year (thru 06/2018) as per Dr. Patel - bleeding risk while on Coumadin discussed - Eventual secondary prevention with BB/DAPT/statin when appropriate Plan: Keep rt pl drain for 1 more day. Transfuse 1u PRBC. Resume levophed at 4 mcg/min for SBP > 100. VVI at 76. Ck echo. Cards consult for rhythm review/PPM consideration. Hold coumadin in case PPM tomorrow. Cont inc activity as tolerated. Keep in SDU. 12/06/17 08:32 Subjective: Tired. A little depressed about possible perm pacer. Min incisional discomfort. Objective: Vital Signs Temp Pulse Resp BP Pulse Ox 36.8 C 59 L 20 101/41 L 95 12/06/17 05:00 12/06/17 07:00 12/06/17 07:00 12/06/17 07:00 12/06/17 07:00 Laboratory Results 12/06/17 05:00 12/06/17 05:00 12/05/17 12/06/17 12/07/17 05:59 05:59 05:59 Intake Total 1593 2364 Output Total 1345 980 Balance 248 1384 PT 21.0 SEC (12.0-15.0) H 12/06/17 05:00 INR 1.80 (0.83-1.16) H 12/06/17 05:00 Aflutter with intermittent RVR last noc. Recovery of SB 50s on amio. Downward trending SBPs. Unable to hold SBP > 90 in SB and Vpaced at 76. + fluid balance with dwindling UOP. CTOP still a bit high to remove. Plt count improving. INR on the rise. Physical Exam - Physical Exam General Appearance: alert, no apparent distress Respiratory: crackles (rt base, o/w CTA), other (Jude x 1 to bulb suction, serosang drainage) Cardiac/Chest: regular rate, rhythm (vpaced), other (No overt diastolic murmur. Sternotomy CDI.) Abdomen: non-tender, soft Skin: warm/dry Extremities: swelling (trace - 1+) ICD10 Worksheet Patient Problems: Problems Problem Status Onset Acute blood loss anemia Acute Aortic stenosis Acute S/P aortic valve repair Acute S/P mitral valve replacement with bioprosthetic valve Acute S/P tricuspid valve repair Acute Tricuspid insufficiency Acute Mitral stenosis Acute Symptomatic anemia Acute
[2017-12-06] MEDS ORDERED: NOREPINEPHRINE BITARTRATE 16 MG in NS 250 ML IV SCH (09:30)
[2017-12-06] MEDS: SENNOSIDES/DOCUSATE SODIUM TAB PO SCH ×2 (09:41→20:36)
[2017-12-06] MEDS: PANTOPRAZOLE SODIUM 40 MG TAB PO SCH ×2 (09:41→20:36)
--- NOTE | 2017-12-06 12:28 | ECHO ---
[email or web address] [address] [address] Main: [phone] Fax: Transthoracic Echocardiogram Name: FERMIN ALFARO MR#: [id number] Study Date: 12/06/2017 Study Time: 10:57 AM Date of : 1935 Age: 82 year(s) Height: 157.5 cm (62 in.) Weight: 82.1 kg (181 lb.) BSA: 1.83 m2 Gender: Female Examination: Echo Indication: S/P TRIPLE VALVE Image Quality: Adequate Contrast: Requested by: Jf Cantu BP: 113 mmHg/46 mmHg Heart Rate: Rhythm: Indication: S/P TRIPLE VALVE Procedure Staff Batter Mixer: Yoli Alonzo RDCS Reading Physician: Edward Torres MD Requesting Provider: Conclusions: Normal size left ventricle. EF is 53 %. A bioprothetic mitral valve is in place. The prosthetic mitral valve is normal. Tricuspid valve prosthesis function is normal. The prosthetic tricuspid valve is normal. There is no pulmonic regurgitation seen. Normal size aortic root measuring 3.1 cm. Progression of the degree of AI from "mild" on prior to more "moderate to severe" on this study. Measurements: Chambers Valvular Assessment AV/MV Valvular Assessment TV/PV Normal Normal Normal Name Value Range Name Value Range Name Value Range Ao Olrie (2D): 3.1 cm (1.4 cm-2.6 AV Vmax: 1.90 m/s (1 m/s-1.7 TV Vmax: 1.50 m/s (0.3 m/s-0.7 cm) m/s) m/s) IVSd (2D): 1.0 cm (0.6 cm-1.1 AV maxP mmHg ( - ) TV Vmean: 0.95 m/s ( - ) cm) AV meanP mmHg ( - ) TV PGmax: 9 mmHg ( - ) LVDd (2D): 3.5 cm (3.9 cm-5.3 JC (VTI): 1.3 cm ( - ) TV PGmean: 4 mmHg ( - ) cm) MV E Vmax: 1.55 m/s ( - ) TV VTI: 25.50 cm ( - ) LVDs (2D): 2.6 cm (2.1 cm-4 MV A Vmax: 0.45 m/s ( - ) TR Vmax: 2.89 mm/s ( - ) cm) MV E/A: 3.44 ( - ) TR PGmax: 33 mmHg ( - ) LVPWd (2D): 0.9 cm ( - ) MV meanP mmHg ( - ) syst. PAP: 38 mmHg ( - ) LVOTd 1.8 cm 1.8 cm mm MV PHT: 0.050 s ( - ) PV Vmax: 0.76 m/s (0.6 m/s-0.9 LVEF (2D): 53 (>=54 %) MVA (Vmax): 1.1 m/s ( - ) m/s) RVDd(2D): 2.6 cm (1.9 cm-3.8 MVA (PHT): 4.4 s ( - ) PV PGmax: 2 mmHg ( - ) cmmm) Continued Measurements: Chambers Valvular Assessment AV/MV Valvular Assessment TV/PV Patient: FERMIN ALFARO Study Date: 12/06/2017 Page 1 of 2 10:57 AM Name Value Name Value Name Value LADs: 3.4 cm MV DecTime: 176 m/s CVP (est.): 5 mmHg MV E' Septal: 0.05 m/s MV E/E' Septal: 30.00 MV E/E' Lateral: 24.40 MV VTI: 47.80 cm Findings: Left Ventricle: Normal size left ventricle. No LV hypertrophy. Normal global systolic LV function. EF is 53 %. No regional wall motion abnormality. Unable to assess diastolic dysfunction. Right Ventricle: Normal size right ventricle. Normal RV function. Left Atrium: The left atrium is normal in size. Right Atrium: The right atrium is normal in size. Mitral Valve: A bioprothetic mitral valve is in place. The mitral valve prosthesis exhibits normal function. The prosthetic mitral valve is normal. Trivial MV prosthesis regurgitation. Aortic Valve: Aortic valve is not well visualized. Moderate to severe aortic regurgitation. Aortic regurgitation appears significantly worse from previous echo. Tricuspid Valve: There is a tricuspid valve ring. Tricuspid valve prosthesis function is normal. The prosthetic tricuspid valve is normal. Mild prosthesis regurgitation. Pulmonic Valve: The pulmonic valve is normal in appearance and function. There is no pulmonic regurgitation seen. Aorta: The aorta is normal. Normal size aortic root measuring 3.1 cm. Pericardium: No pericardial effusion. There is a pleural effusion present. (No Signature Object) Patient: FERMIN ALFARO Study Date: 12/06/2017 Page 2 of 2 10:57 AM [id number]
--- NOTE | 2017-12-06 12:55 | PDINTPN ---
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 Now on low-dose NE. MELANIE: On oxygen at home, continues on oxygen here Hyperglycemia: Off insulin gtt and BSs in low 100s, taking minimal PO AF: With some RVR. Amio->Bradycardia requiring pacing, not responsive to DA. Thrombocytopenia: Low but stable. Tongue swelling: Mild, stable. ? cause Plan: Follow BSs. Insulin PRN. Continue oxygen with sleep Repeat CXR Follow Hgb, tongue swelling Probable PPM tomorrow. 12/06/17 12:58 Subjective: Feels dyspneic, unable to take as full a breath as she'd like. Pain control OK. Objective: Vital Signs Temp Pulse Resp BP Pulse Ox 37.2 C 76 20 132/46 H 95 12/06/17 12:00 12/06/17 12:00 12/06/17 12:00 12/06/17 12:00 12/06/17 12:00 Laboratory Results 12/06/17 05:00 12/06/17 05:00 12/05/17 12/06/17 12/07/17 05:59 05:59 05:59 Intake Total 1593 2364 Output Total 1345 980 Balance 248 1384 PT 21.0 SEC (12.0-15.0) H 12/06/17 05:00 INR 1.80 (0.83-1.16) H 12/06/17 05:00 Echo: EF 53%. Moderate-Severe AI worse than prior Echo. Physical Exam - Physical Exam General Appearance: alert EENT: normal ENT inspection Neck: normal inspection Respiratory: lungs clear, normal breath sounds Cardiac/Chest: normal peripheral pulses, regular rate, rhythm Abdomen: normal bowel sounds, non-tender Skin: normal color, warm/dry Extremities: normal inspection Neuro/Psych: alert, normal mood/affect, oriented x 3 ICD10 Worksheet Patient Problems: Problems Problem Status Onset Acute blood loss anemia Acute Aortic stenosis Acute S/P aortic valve repair Acute S/P mitral valve replacement with bioprosthetic valve Acute S/P tricuspid valve repair Acute Tricuspid insufficiency Acute Mitral stenosis Acute Symptomatic anemia Acute
--- NOTE | 2017-12-06 14:24 | SOAPPROG ---
BREA Progress Note Assessment/Plan: Assessment: Plan: 12/06/17 14:20 echo with worsening central AI requiring pressor support diastoloic pressures usually 40 preop, now dipping below this suspect MAC debridement and "closer " placement of mitral valve to AoV are distorting LVOT enough to create worse AI TAVR not a good option with prosthesis but may be necessary if refuses reop AVR will schedule tomorrow afternoon, just ate and remains stable and not ready to consent Objective: Vital Signs Temp Pulse Resp BP Pulse Ox 37.2 C 76 20 126/56 H 98 12/06/17 12:00 12/06/17 13:00 12/06/17 13:00 12/06/17 13:00 12/06/17 13:00 Laboratory Results 12/06/17 05:00 12/06/17 05:00 12/05/17 12/06/17 12/07/17 05:59 05:59 05:59 Intake Total 1593 2364 Output Total 1345 980 Balance 248 1384 PT 21.0 SEC (12.0-15.0) H 12/06/17 05:00 INR 1.80 (0.83-1.16) H 12/06/17 05:00 ICD10 Worksheet Patient Problems: Problems Problem Status Onset Acute blood loss anemia Acute Aortic stenosis Acute S/P aortic valve repair Acute S/P mitral valve replacement with bioprosthetic valve Acute S/P tricuspid valve repair Acute Tricuspid insufficiency Acute Mitral stenosis Acute Symptomatic anemia Acute
--- NOTE | 2017-12-06 19:52 | SOAPPROG ---
SOAP Progress Note Assessment/Plan: Assessment: Onset of post operative AI worse since the day after surgery. Thrush Plan: Discussed options. I am encouraging her to proceed with surgery. Will cover thrush with nystatin as well as fluconazole. 12/06/17 19:52 Subjective: Concerned regarding the need for an additional surgery. Also has a sore and swollen tongue. Objective: Vital Signs Temp Pulse Resp BP Pulse Ox 98.6 F 80 22 H 109/44 L 98 12/06/17 16:00 12/06/17 18:00 12/06/17 18:00 12/06/17 18:00 12/06/17 18:00 Laboratory Results 12/06/17 05:00 12/06/17 05:00 12/05/17 12/06/17 12/07/17 05:59 05:59 05:59 Intake Total 1593 2364 1897 Output Total 1345 980 450 Balance 248 1384 1447 PT 21.0 SEC (12.0-15.0) H 12/06/17 05:00 INR 1.80 (0.83-1.16) H 12/06/17 05:00 I reviewed the echo and the surgical history with her. It is apparent that she has dilated her aorta since surgery resulting in increased aortic insufficiency which will undoubtedly worsen with time. Her tongue has a fibrinous film consistent with thrush/ ICD10 Worksheet Patient Problems: Problems Problem Status Onset Acute blood loss anemia Acute Aortic stenosis Acute S/P aortic valve repair Acute S/P mitral valve replacement with bioprosthetic valve Acute S/P tricuspid valve repair Acute Tricuspid insufficiency Acute Mitral stenosis Acute Symptomatic anemia Acute
[2017-12-06] MEDS ORDERED: PHYTONADIONE 5 MG in NS 50 ML IV ONE (20:30)
[2017-12-06] MEDS: NYSTATIN SUSP 500000 UNIT/5 ML UDCUP PO SCH (20:36)
[2017-12-06] MEDS: CLOPIDOGREL BISULFATE 75 MG TAB PO SCH (20:37)
[2017-12-06] MEDS: FLUCONAZOLE/NaCl 100 ML IV SCH (20:45)
[2017-12-07] MEDS: NYSTATIN SUSP 500000 UNIT/5 ML UDCUP PO SCH ×4 (05:18→21:03)
[2017-12-07 05:30] LABS: PLATELET COUNT 112 10^3/uL (150-400)
[2017-12-07 05:37] LABS: INR 1.26 (0.83-1.16)
--- NOTE | 2017-12-07 06:57 | SOAPPROG ---
BREA Progress Note Assessment/Plan: Assessment: POD#5 MVR#25 Magna bioprosthesis, TVA#28 MC3 ring, aortic valve debridement Severe MS - s/p tissue valve replacement - Coumadin with INR goal 2-3, duration 3 months. Severe TR - s/p annuloplasty - Mgmt as per MVR Moderate - amenable to debridement - Complicated by significant central AI, distortion of LVOT by MVR suspected. - TAVR vs SAVR under consideration. INR reversed with Vit K. Acute expected blood loss anemia with coagulopathy - Stable s/p 2u PRBC and 1u Plt - Platelets appear to be rebounding - VTE prophylaxis with plavix and coumadin. 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 Post-op arrhythmias - Early postop AV pacing for optimized hemodynamics - New onset atrial flutter with variable rate (intermittent rapid) POD#3. 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 Underlying rhythm SB. Amio stopped. - Cards following for possible PPM CAD - patent LAD stent placed Jun 2017 - Plavix for 1 year (thru 06/2018) as per Dr. Patel - bleeding risk while on Coumadin discussed - Eventual secondary prevention with BB/DAPT/statin when appropriate Plan: NPO. CTA chest/abd/pelvis to eval TAVR candidacy. SAVR this afternoon if anatomy unsuitable for TAVR, o/w TAVR tomorrow. Keep rt pl drain for now. Cont levophed at 4 mcg/min for SBP > 100. Cont VVI backup at 66. Cont hold Plavix and Coumadin. 12/07/17 06:58 Subjective: Tired and a little breathless. Nervous about redo surgery. Objective: Vital Signs Temp Pulse Resp BP Pulse Ox 36.6 C 104 H 19 122/51 H 96 12/07/17 00:00 12/07/17 06:00 12/07/17 06:00 12/07/17 06:00 12/07/17 06:00 Laboratory Results 12/07/17 05:15 12/07/17 05:15 12/06/17 12/07/17 12/08/17 05:59 05:59 05:59 Intake Total 2364 2349 Output Total 980 890 Balance 1384 1459 PT 16.0 SEC (12.0-15.0) H 12/07/17 05:15 INR 1.26 (0.83-1.16) H 12/07/17 05:15 Holding SR/ST. No backup pacing. MAPs > 65, adequate UOP, stable hepatorenal fx, on levo at 4 mcg. CXR-> hypovent, small left pleural effusion with basilar atelectasis, no undrained rt pl eff. Rt pleural tube output remains elev. Physical Exam - Physical Exam General Appearance: alert, no apparent distress Respiratory: crackles (bases), other (akbar x 1 to bulb suction, mostly serous drainage) Cardiac/Chest: regular rate, rhythm, tachycardia, other (Sternotomy CDI. A&V wires intact.) Abdomen: non-tender, soft Skin: warm/dry Extremities: swelling (trace) ICD10 Worksheet Patient Problems: Problems Problem Status Onset Acute blood loss anemia Acute Aortic stenosis Acute S/P aortic valve repair Acute S/P mitral valve replacement with bioprosthetic valve Acute S/P tricuspid valve repair Acute Tricuspid insufficiency Acute Mitral stenosis Acute Symptomatic anemia Acute
[2017-12-07] MEDS ORDERED: IOPAMIDOL (ISOVUE 370) 100 ML BTL IV ONE ×2 (07:36→16:49)
[2017-12-07] MEDS: CHOLECALCIFEROL VIT D3 1,000 UNITS TAB PO SCH (11:48)
[2017-12-07] MEDS: NIACIN ER 500 MG TAB.ER PO SCH ×2 (11:49→21:04)
[2017-12-07] MEDS: OMEGA-3 FATTY ACIDS 1,000 MG CAP PO SCH (11:49)
[2017-12-07] MEDS: SENNOSIDES/DOCUSATE SODIUM TAB PO SCH ×2 (11:51→21:03)
[2017-12-07] MEDS: PANTOPRAZOLE SODIUM 40 MG TAB PO SCH ×2 (11:51→21:04)
--- NOTE | 2017-12-07 12:15 | ASMTCMCOM ---
CM Note CM Note Notes: Met with and daughter, who were concerned about patient having another surgery. They were wondering which procedure had the most longevity CABG vs TAVR. Patient and are from [place], daughter [place]. Gave him a list of Custodial Facilities in the [place] area. He is looking into where he can stay while in Rehab. [facility] may be less expensive than [place]. Date Signed: 12/07/2017 12:14 PM Electronically Signed By:Mari Lal LCSW
--- NOTE | 2017-12-07 13:28 | PDINTPN ---
Clinical Engineering Manager Progress Note Assessment/Plan: Assessment: S/P AV debridement (failing), MV replacement, TV annuloplasty 12/02. Awaiting decision regarding AVR today versus TAVR tomorrow. Hypotension, possibly due to AI, on low-dose NE. MELANIE: On oxygen at home at altitude, on O2 here. Hyperglycemia: Off insulin SS. tNPO currently. AF: With some RVR. Amio: Bradycardia requiring pacing, not responsive to DA. Left pleural effusion with left lower lobe atelectasis. On 4 L, stable. No signs/symptoms of pneumonia. Thrombocytopenia: Resolving. Tongue swelling: Resolving. ? cause Plan: Continue care in the intensive care unit. Continue NPO status for now. Await decision by [facility] regarding AVR versus TAVR. Follow BSs. Continue Insulin PRN. Continue oxygen Follow laboratory, CBC, chest x-ray. 35 min of critical care time spent directly with the patient. Discussed with the patient's family, nursing, and the ICU multi disciplinary team. Objective: Vital Signs Temp Pulse Resp BP Pulse Ox 36.4 C 66 20 101/54 L 99 12/07/17 11:00 12/07/17 11:00 12/07/17 11:00 12/07/17 11:00 12/07/17 11:00 Laboratory Results 12/07/17 05:15 12/07/17 05:15 12/06/17 12/07/17 12/08/17 05:59 05:59 05:59 Intake Total 2364 2349 Output Total 980 890 225 Balance 1384 1459 -225 PT 16.0 SEC (12.0-15.0) H 12/07/17 05:15 INR 1.26 (0.83-1.16) H 12/07/17 05:15 Laboratory Tests 12/07/17 05:15 Calcium 8.8 Total Bilirubin 1.2 ALT 37 Alkaline Phosphatase 107 Albumin 3.2 L Physical Exam - Physical Exam General Appearance: alert, no apparent distress, other (In bed) EENT: other (Oxygen in place at 4 L) Neck: normal inspection (No obvious JVD) Respiratory: lungs clear (Anteriorly), decreased breath sounds (At bases), No rales, No rhonchi, No wheezing Cardiac/Chest: irregularly irregular (Atrial fibrillation present on monitor), other (Drains in place) Abdomen: normal bowel sounds, non-tender, soft Pelvic Exam: other (No Shannon catheter in place currently. Good urine output.) Skin: warm/dry, pallor Extremities: pedal edema (Trace) Neuro/Psych: no motor/sensory deficits, No cognition abnormalities ICD10 Worksheet Patient Problems: Problems Problem Status Onset Tricuspid insufficiency Acute Aortic stenosis Acute Acute blood loss anemia Acute S/P aortic valve repair Acute S/P tricuspid valve repair Acute S/P mitral valve replacement with bioprosthetic valve Acute Mitral stenosis Acute Symptomatic anemia Acute
--- NOTE | 2017-12-07 16:05 | SOAPPROG ---
[facility] Progress Note Assessment/Plan: Assessment: Plan: 12/06/17 14:20 echo with worsening central AI requiring pressor support diastoloic pressures usually 40 preop, now dipping below this suspect MAC debridement and "closer " placement of mitral valve to AoV are distorting LVOT enough to create worse AI TAVR not a good option with prosthesis but may be necessary if refuses reop AVR will schedule tomorrow afternoon, just ate and remains stable and not ready to consent 12/07/17 16:02 Pt remains stable, well perfused and w/o c/o appreciate Dr Sethi input w/u reveals good candidate TAVR family favors as do I given frailty post complicated 2 valve surgery with worsening AI requiring levo to maintain adequate perfusion needs urgent performance of same scheduled am Objective: Vital Signs Temp Pulse Resp BP Pulse Ox 36.4 C 66 20 122/38 H 96 12/07/17 11:00 12/07/17 15:00 12/07/17 15:00 12/07/17 15:00 12/07/17 15:00 Laboratory Results 12/07/17 05:15 12/07/17 05:15 12/06/17 12/07/17 12/08/17 05:59 05:59 05:59 Intake Total 2364 2349 Output Total 980 890 225 Balance 1384 1459 -225 PT 16.0 SEC (12.0-15.0) H 12/07/17 05:15 INR 1.26 (0.83-1.16) H 12/07/17 05:15 ICD10 Worksheet Patient Problems: Problems Problem Status Onset Acute blood loss anemia Acute Aortic stenosis Acute S/P aortic valve repair Acute S/P mitral valve replacement with bioprosthetic valve Acute S/P tricuspid valve repair Acute Tricuspid insufficiency Acute Mitral stenosis Acute Symptomatic anemia Acute
--- NOTE | 2017-12-07 17:29 | GCON ---
[f rep st] CONSULTATION CARDIOLOGY CONSULT CHIEF COMPLAINT: Shortness of breath. HISTORY OF PRESENT ILLNESS: This is an 82-year-old female with history of significant valvular heart disease. The patient underwent surgery with Dr. Jf Cantu for a tricuspid repair with mitral valv e prosthesis with aortic valve debridement. The patient had known moderate aortic stenosis in additi on to severe mitral and tricuspid disease. Postprocedure, the patient developed severe AI resulting in reduced diastolic pressures and necessity for pressor support. The patient currently denies any a ctive discomfort. However, she does get winded with minimal exertion. Blood pressure is stable on 4 mcg of Levophed with a heart rate that is being temporally paced with her epicardial leads. PAST MEDICAL HISTORY: Significant for significant valvular heart disease, namely in the form of tric uspid regurg, mitral stenosis, treated with bioprosthetic aortic mitral valve, and moderate aortic st enosis. SOCIAL HISTORY: No drinking, no smoking. FAMILY HISTORY: Noncontributory. MEDICATIONS,: Please see patient's attached list. REVIEW OF SYSTEMS: Patient currently denies any vision changes. No throat pain. No headache. No p alpitations. She does indicate moderate dyspnea with exertion. No abdominal discomfort. She does i ndicate having sternal discomfort from her recent sternotomy. No lower extremity pain. No new neuro logic issues. PHYSICAL EXAM: VITAL SIGNS: Patient is afebrile at 96, blood pressure 110/46, heart rate 64, respir ations 12, satting 95% on 3 L nasal cannula. HEENT: Pupils equal, round, reactive to light and acco mmodation. Extraocular movements intact. CARDIOVASCULAR: Regular rate and rhythm. There is a 2/6 systolic murmur heard throughout the precordium. LUNGS: Decreased breath sounds at the bases. ABDO MEN: Soft, nontender, no guarding. EXTREMITIES: No edema. NEUROLOGIC: The patient is alert and o riented x3. LABORATORY VALUES: Currently show a white cell of 16,000, hemoglobin 11.8, platelet count of 112. I NR of 1.2. Creatinine is currently 0.9. Sodium 135, potassium 4.9. ASSESSMENT/PLAN: Shortness of breath/valvular heart disease. The patient's recent echo shows normal ly functioning bioprosthetic mitral valve with improved tricuspid valve function. However, there is severe aortic regurgitation that is centrally located. I have discussed this case in depth with Dr. Cantu. Given the patient's overall frailty, as well as the newfound findings of the aortic valve pat hology, most likely secondary from the changes morphologically with the placement of the bioprostheti c mitral valve, that placing a TAVR versus performing an open AVR would be more suited for the patien t at this juncture. The patient does have significantly thickened aortic leaflets and did have at le ast moderate aortic stenosis prior to her open-heart procedure. Thus, we will hope that she will hav e some strut support with placing a TAVR valve in this position, though her aortic valve was debrided , given the thickened aortic leaflets, as well as the change of morphology of the LVOT from the biopr osthetic mitral valve, I hope that we can oversize a TAVR valve, which can fit suitably in this area. I have spoken at length with the patient and her daughter about the risks of doing this procedure i ncluding embolization of the valve, stroke, perforation, and possible , and they would like to p ching. We will plan to proceed with this procedure within the next 24 hours. /[id number]/MODL
[2017-12-07] MEDS: FERROUS SULFATE 325 MG TAB PO SCH (21:04)
[2017-12-07] MEDS: HEPARIN 5,000 UNIT/0.5 ML INJ SC SCH (21:04)
[2017-12-07] MEDS: ATORVASTATIN CALCIUM 10 MG TAB PO SCH (21:04)
[2017-12-07] MEDS: FLUCONAZOLE/NaCl 100 ML IV SCH (21:05)
[2017-12-07] MEDS ORDERED: CHLORHEXIDINE GLUC HIBICLENS 118 ML BTL TP ONE (22:32)
--- NOTE | 2017-12-07 22:36 | GCON ---
[f rep st] CONSULTATION DATE OF CONSULTATION: 12/07/2017 CONSULTING SERVICE: Cardiothoracic Surgery. REASON FOR CONSULTATION: Severe aortic insufficiency. REQUESTING PHYSICIAN: Dr. Jf Cantu HISTORY OF PRESENT ILLNESS: The patient is an 82-year-old female with no significant medical history other than significant cardiac valvular issues requiring admissions for congestive heart failure doris t ultimately underwent cardiac surgery on December 02, 2017. During that surgery, she underwent mitral v alve replacement, which required extensive debridement of the mitral annulus as well as tricuspid rin g annuloplasty and finally extensive aortic valve debridement for moderate aortic stenosis. Postoper atively from this, she was not progressing as expected and her diastolic blood pressure was noted to be quite low and she was still having significant difficulty breathing and, therefore, echocardiogram was performed showing [id number] aortic insufficiency. At the present time, she remains in the ICU on a levophed drip for blood pressure support and given the above second surgical opinion was requested on the best method of management. Currently, the patient notes she is still having signif icant shortness of breath, but otherwise pain is well controlled. MEDICAL HISTORY: Valvular heart disease. SURGICAL HISTORY: Cardiac surgery on December 02, 2017, as noted above; left knee surgery; exploratory l aparotomy for liver injury which was negative. ALLERGIES: No known drug allergies. MEDICATIONS: Aspirin, vitamin D3, Plavix, Lasix, metoprolol, niacin, fish oil, Protonix, simvastatin , spironolactone. SOCIAL HISTORY: The patient lives with her partner. She is a former smoker, but quit in 1968. She did smoke about 1 pack per day for about 10 years. She drinks alcohol of about 1 glass of wine per d ay with dinner. FAMILY HISTORY: Noncontributory. REVIEW OF SYSTEMS: A 12-point review of systems is negative other than noted in the HPI. PHYSICAL EXAMINATION: GENERAL: The patient is awake, alert, and oriented x3. She is in mild distre ss secondary to difficulty breathing. She is requiring 4 L of oxygen per minute. HEENT: Normocepha lic, atraumatic. No evidence of icterus. No JVD. No tracheal deviation. LUNGS: Clear to ausculta tion bilaterally with some diminished breath sounds at the bilateral bases. HEART: Paced a 80. ABD OMEN: Soft, nontender, nondistended. EXTREMITIES: Warm and well perfused without any significant e lacy. DIAGNOSTIC STUDIES: Laboratory values: CBC: WBC 16.27, hemoglobin 11.8, hematocrit 35.5, platelet count of 112. Chemistries: Sodium 135, potassium 4.9, chloride 102, carbon dioxide 24, BUN 35, crea tinine 0.9, glucose 124, calcium 8.8, total bilirubin 1.2, AST 34, ALT 37, alkaline phosphatase 107, total protein 5.5, albumin 3.2. Echocardiogram performed on December 06, 2017, shows a normal left ventricular size with EF estimated at 53%. Bioprosthetic mitral valve is noted with normal function. The tricuspid valvuloplasty ring is noted with normal function as well. There is no pulmonic regurgitation. There is progression of her aortic insufficiency from mild to moderate to severe. ASSESSMENT AND PLAN: The patient is an 82-year-old female status post open-heart surgery with mitral valve replacement, aortic valve debridement, and tricuspid valve annuloplasty who now has moderate-t o-severe symptomatic aortic insufficiency. Given the degree of her aortic insufficiency, she is requ iring vasopressor support to maintain adequate blood pressure and perfusion; therefore, I do feel doris t she warrants intervention on her aortic valve as soon as possible. Discussion was had with the jae de jesus in regards to repeat open-heart surgery as well as transcatheter aortic valve replacement. Give n her current comorbidities, she is at least moderate, if not high risk for surgical aortic valve rep lacement especially with her recent surgery; therefore, transcatheter aortic valve replacement is the most appropriate option. I did discuss with her the risks, benefits of this and she does wish to pr oceed, and therefore, this should be done expeditiously given her symptoms. Tentative plan is for pe rforming the procedure tomorrow morning. /[id number]/MODL
[2017-12-08] MEDS: NYSTATIN SUSP 500000 UNIT/5 ML UDCUP PO SCH ×4 (05:55→21:11)
[2017-12-08] MEDS ORDERED: ceFAZolin 2 GM/DEXTROSE 100 ML IV ONE ×2 (06:00→10:15)
[2017-12-08 06:24] LABS: INR 1.16 (0.83-1.16)
[2017-12-08] MEDS: HEPARIN 5,000 UNIT/0.5 ML INJ SC SCH (06:48)
--- NOTE | 2017-12-08 06:50 | PDCARPN ---
Cardiology Progress Note Chief Complaint: SOB Assessment/Plan: Assessment: s/p bMVR, TV and AV repair subsequent /AI Plan: 12/08/17 06:48 Plan for high-risk TAVR today d/w patient and family in depth about risks/possible complications They are willing to proceed NPO Plan TAVR this AM Subjective: weak Reviewed/Discussed With: multidisciplinary team Time Spent with Patient: greater than 25 minutes Time Spent with Patient: Greater than 25 minutes spent on this patients care, greater than 50% of time spent counseling, educating, and coordinating care regarding the above mentioned plan. Objective: Vital Signs (8 Hrs) Temp Pulse Resp BP Pulse Ox 12/08/17 06:00 108 H 20 108/58 L 95 12/08/17 05:00 109 H 22 H 133/56 H 96 12/08/17 04:00 37 C 99 26 H 126/51 H 96 12/08/17 03:00 102 H 19 114/54 L 95 12/08/17 02:00 104 H 20 136/56 H 93 12/08/17 01:00 104 H 20 136/59 H 92 12/08/17 00:00 37.4 C 73 17 138/52 H 93 12/07/17 23:00 66 33 H 123/51 H 94 Intake/Output (24 Hrs) 12/07/17 12/08/17 12/09/17 05:59 05:59 05:59 Intake Total 2349 1231 Output Total 890 900 Balance 1459 331 Intake: Oral (ml) 2030 1040 IV Intake (ml) 159 102 IV Infused (ml) 160 89 Amiodarone HCl 200 ml @ 34 33.333 mls/hr IV ONCE ONE Rx#:[id number] DOPamine/DEXTROSE 250 ml 53 @ Titrate IV CONT LUIS MIGUEL Rx# :[id number] Norepinephrine Bitartrate 73 89 16 mg In Ns 250 ml @ As Directed IV CONT LUIS MIGUEL Rx#: [id number] Output: Urine (ml) 600 675 Bedside Commode 600 675 Chest Tube Output (ml) 290 225 Location 3 Left Pleural 290 225 Other: Weight 82.3 kg 83.6 kg Number of Voids Bedside Commode 1 2 Incontinence 1 Toilet 2 Number of Stools Toilet 2 Result Diagrams: 12/07/17 05:15 12/07/17 05:15 - Physical Exam Constitutional: healthy appearing Ears, Nose, Mouth, Throat: moist mucous membranes Cardiovascular: regular rate and rhythm Peripheral Pulses: 1+: femoral (R), femoral (L) Respiratory: reduced air movement Gastrointestinal: normoactive bowel sounds Genitourinary: no suprapubic tenderness Skin: no rashes Musculoskeletal: no muscular tenderness Neurologic: AAOx3 Psychiatric: cooperative ICD10 Worksheet Patient Problems: Problems Problem Status Onset Acute blood loss anemia Acute Aortic stenosis Acute S/P aortic valve repair Acute S/P mitral valve replacement with bioprosthetic valve Acute S/P tricuspid valve repair Acute Tricuspid insufficiency Acute Mitral stenosis Acute Symptomatic anemia Acute
[2017-12-08] MEDS ORDERED: IOPAMIDOL (ISOVUE 370) 100 ML BTL IV ONE (07:00)
--- NOTE | 2017-12-08 07:00 | PDANEPAE ---
ANE History of Present Illness tavr ANE Past Medical History - Cardiovascular History Hx Hypertension: Yes Hx Arrhythmias: No Hx Chest Pain: No Hx Coronary Artery / Peripheral Vascular Disease: Yes Hx CHF / Valvular Disease: Yes Hx Palpitations: No Cardiovascular History Comment: s/p mv repair,now AI - Pulmonary History Hx COPD: No Hx Asthma/Reactive Airway Disease: No Hx Recent Upper Respiratory Infection: No Hx Oxygen in Use at Home: Yes O2 in Use at Home (L/minute): 2.L Hx Sleep Apnea: Yes Sleep Apnea Screening Result - Last Documented: Positive Pulmonary History Comment: pt does not use C-PAP - Neurologic History Hx Cerebrovascular Accident: No Hx Seizures: No Hx Dementia: No - Endocrine History Hx Diabetes: No - Renal History Hx Renal Disorders: No - Liver History Hx Hepatic Disorders: No - Neurological & Psychiatric Hx Hx Neurological and Psychiatric Disorders: Yes 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 tka 2010. back sx ANE Review of Systems Review of Systems: - Exercise capacity METS (RN): 2 METS - Pacemaker Pacemaker Set Rate: 66 ANE Patient History - Allergies Allergies/Adverse Reactions: No Known Allergies Allergy (Verified 11/25/17 14:25) - Home Medications Home Medications: Aspirin [Aspirin 81mg (*)] 81 mg PO DAILY 08/27/17 [Last Taken 12/01/17] Clopidogrel Bisulfate [Plavix (*)] 75 mg PO HS 08/27/17 [Last Taken 11/26/17] Herbals/Supplements -Info Only 1 ea PO DAILY 08/27/17 [Last Taken Unknown] Niacin ER [Niaspan 500 mg (*)] 500 mg PO BID 08/27/17 [Last Taken 11/26/17] [place]-3 Fatty Acids [Fish Oil 1000 mg (*)] 1,000 mg PO DAILY 08/27/17 [Last Taken 12/01/17] Cholecalciferol Vit D3 [Vitamin D3 (*)] 1,000 units PO DAILY 10/29/17 [Last Taken 11/26/17] Pantoprazole Sodium [Protonix 40mg (*)] 40 mg PO BID 10/29/17 [Last Taken ] Simvastatin [Zocor] 20 mg PO HS 10/29/17 [Last Taken 11/01/17] Furosemide [Lasix 20 MG (*)] 20 mg PO DAILY 11/02/17 [Last Taken 12/01/17] Spironolactone [Aldactone 25 MG (*)] 25 mg PO DAILY 11/02/17 [Last Taken ] - NPO status NPO Since - Liquids (Date): 12/01/17 NPO Since - Liquids (Time): 22:00 NPO Since - Solids (Date): 12/01/17 NPO Since - Solids (Time): 22:00 - Smoking Hx Smoking Status: Former smoker - Family Anes Hx Family Hx Anesthesia Complications: none ANE Labs/Vital Signs - Labs Result Diagrams: 12/07/17 05:15 12/07/17 05:15 - Vital Signs Blood Pressure: 108/58 Heart Rate: 108 Respiratory Rate: 20 O2 Sat (%): 95 Height: 157.4 cm Weight: 83.6 kg ANE Physical Exam - Airway Mallampati Score: Class 2 Mouth exam: normal dental/mouth exam - Pulmonary Pulmonary: reduced air movement - Cardiovascular Cardiovascular: regular rate and rhythym - ASA Status ASA Status: IV ANE Anesthesia Plan Anesthesia Plan: general endotracheal anesthesia Lines/Monitors: central line
[2017-12-08] MEDS ORDERED: PHENYLEPHRINE 10 MG/ML SDV ONE (07:18)
[2017-12-08] MEDS ORDERED: ROCURONIUM 50 MG/5 ML VIAL ONE ×2 (07:22→09:27)
[2017-12-08] MEDS ORDERED: SUCCINYLCHOLINE CHLORIDE 200 MG/10 ML SYR IVP ONE (07:22)
[2017-12-08] MEDS ORDERED: PROPOFOL 200 MG/20 ML VIAL ONE (07:35)
[2017-12-08] MEDS ORDERED: LIDOCAINE 2% 5 ML SDV ONE (07:35)
[2017-12-08] MEDS ORDERED: ceFAZolin 1 GM VIAL ONE ×4 (07:38→10:02)
[2017-12-08] MEDS ORDERED: HEPARIN 10,000 UNIT/10 ML MDV (1,000 UNIT/ML) ONE (08:05)
[2017-12-08] MEDS ORDERED: PROTAMINE SULFATE 50 MG/5 ML VIAL IVP ONE (09:14)
[2017-12-08] MEDS ORDERED: SUGAMMADEX SODIUM 200 MG/2 ML VIAL IVP ONE (09:15)
[2017-12-08] MEDS ORDERED: LIDO/EPI 1% **for epidural** 30 ML SDV ONE (09:43)
[2017-12-08] MEDS ORDERED: LIDOCAINE 1% 300 MG/30 ML SDV ONE ×2 (09:43→16:00)
[2017-12-08] MEDS ORDERED: BUPIVACAINE 0.5% 30 ML SDV ONE (09:43)
[2017-12-08] MEDS ORDERED: IOPAMIDOL (ISOVUE-300) 50 ML VIAL ONE (09:43)
[2017-12-08] MEDS ORDERED: BACITRACIN IRRIGATION/NS 50,000 UNITS/1,000 ML BTL IRR ONE (10:00)
--- NOTE | 2017-12-08 10:08 | CPIP ---
[f rep st] INVASIVE CARDIAC PROCEDURE DATE OF PROCEDURE: 12/08/2017 INDICATION FOR PROCEDURE: Aortic valve disease/shortness of breath. CO-SURGEONS: 1. Dr. Jf Cantu. 2. Dr. Tino Morris. 3. Dr. Edward Torres. PROCEDURE: 1. Nonselective left groin sheathogram. 2. Nonselective right groin sheathogram. 3. Upsizing of the left common femoral artery with triple Perclose placement with 14-Bur[place]ian sheath. 4. Placement of Medtronic CoreValve Evolut R 26 mm valve by the transfemoral route. 5. Aortic root angiography. HISTORY: Briefly, this is an 82-year-old female with history of recent complex surgical valve diseas e. The patient underwent mitral valve replacement with tricuspid valve angioplasty and aortic valve annular debridement. The patient unfortunately post procedure developed wide-open aortic regurgitati on and with hemodynamic compromise. The patient was consented for emergent TAVR placement for signif icant aortic valve pathology. She was seen by Dr. Cantu and Dr. Cuadra, [address] surgeons who a greed this would be the best course of therapy given her overall frail status. DESCRIPTION OF PROCEDURE: After informed consent was obtained, the patient was brought to [facility] where the patient was electively intubated, 2 g of Ancef were administered IV. A short 6-Burundian sheath was placed in the left common femoral artery verified angiographically. A short 6-Burundian sheath right f emoral artery verified angiographically. Left common femoral artery sheath was then upsized to a 14- [place] sheath. After the right common femoral artery was upsized to 8-[place]ian sheath with a pigtail catheter placed in the aortic non-coronary cusp. Patient administered 7000 heparin IV . The valve was crossed with the A1 catheter, straight stiff glidewire was switched out for a pigtai l catheter switched to a Confida wire. We then removed the 14-[place]ian [place] sheath and then placed a M edtronic CoreValve Evolut-R 26 mm valve via transfemoral route. This deployed successfully. After d eployment, there was trivial perivalvular noted. The patient was hemodynamically stable. The wire w as removed. The left groin was closed with triple Perclose placement, the right groin was closed wit h an 8-[place] Angio-Seal. The patient tolerated the procedure well with no complications. IMPRESSION: Successful placement of Medtronic Evolut-R 26 mm valve by the transfemoral route. PLAN: The patient will be admitted to the ICU. Further orders following clinical correlation. /[id number]/MODL
--- NOTE | 2017-12-08 12:17 | SUROPNOTE ---
[facility] Operative Report - Surgery Procedure: (1) fluoroscopic review of the left subclavian vein (2) PPM implantation Indications: (1) Post TVr, MVR, TAVR with ongoing pacer support need Procedure details: After TAVR placement the patient was once again prepped and draped in the usual sterile fashion. Venogram was performed to isolate and ensure patency of the left subclavian vein. Lidocaine (1%) was used to the left subclavian region. Two separate venous sticks were performed without difficulty. A pocket was created with #12 blade and bovie (for breath and depth). Haemostasis was achieved through out the creation of a pocket. The two wires were pulled into the pocket, and the ventricular lead was placed first. Ventricular parameters Medtronic S#: [id number] with M#: [id number] pulse width: 0.5 ms, 0.8 V, 0.9 mA, 878 Ohms, and R waves of 10.1 mV This lead was sutured into position Atrial parameters Medtronic S#: [id number] with M#: [id number] puse width: 0.5 ms, 0.4 V, 0.9 mA, 583 Ohms, and P waves of 4.9 mV The pocket was then flushed and once again inspected for haemostasis The device was attached to atrial and ventricular leads and sutured into position Medtronic Model#: [id number] with Serial#: [id number] No complications were appreciated Pocket was closed with 4-0, 3-0, and 2-0 Fluoroscopic review of the device and leads performed CXR (PA and LAT) post, and in AM has been ordered Interrogation of the device post with excellent thresholds noted
[2017-12-08] MEDS ORDERED: NALOXONE HCL 0.4 MG/ML INJ IVP PRN (12:35)
--- NOTE | 2017-12-08 12:35 | POSTANESTH ---
Post Anesthetic Evaluation Cardiovascular Status: Normal, Stable Respiratory Status: Normal, Stable, Tx Decrease in SpO2 Level of Consciousness/Mental Status: Can Participate in Eval Pain Control: Adequate, Prn Tx Ordered Nausea/Vomiting Control: Adequate, Prn Tx Ordered Complications Possibly Related to Anesthesia: None Noted
[2017-12-08] MEDS ORDERED: ALBUTEROL 3 ML DEYVIAL IH ONE (12:51)
--- NOTE | 2017-12-08 12:54 | CPEKG ---
Heart Rate: 108 RR Interval: 556 P-R Interval: 480 QRSD Interval: 120 QT Interval: 312 QTC Interval: 418 P Green: 0 QRS Green: 46 T Wave Green: 215 EKG Severity - ABNORMAL ECG - EKG Impression: SINUS TACHYCARDIA EKG Impression: FIRST DEGREE AV BLOCK EKG Impression: BIATRIAL ABNORMALITIES EKG Impression: INCOMPLETE LEFT BUNDLE BRANCH BLOCK EKG Impression: ATRIAL PREMATURE COMPLEX Electronically Signed By: Edward Patel 10-Dec-2017 08:11:13
[2017-12-08] MEDS: NIACIN ER 500 MG TAB.ER PO SCH ×2 (12:56→21:11)
[2017-12-08] MEDS: OMEGA-3 FATTY ACIDS 1,000 MG CAP PO SCH (12:56)
[2017-12-08] MEDS: PANTOPRAZOLE SODIUM 40 MG TAB PO SCH ×2 (12:57→21:11)
[2017-12-08] MEDS: CHOLECALCIFEROL VIT D3 1,000 UNITS TAB PO SCH (12:57)
[2017-12-08] MEDS: SENNOSIDES/DOCUSATE SODIUM TAB PO SCH ×2 (12:57→21:11)
[2017-12-08] MEDS ORDERED: FUROSEMIDE 40 MG/4 ML VIAL IVP ONE ×3 (13:41→14:13)
--- NOTE | 2017-12-08 16:43 | PDINTPN ---
Archaeology Professor Progress Note Assessment/Plan: Assessment: S/P AV debridement (failing), MV replacement, TV annuloplasty 12/02. Status post TAVR today. Acute respiratory failure with hypoxemia and respiratory distress post TAVR. Responded to nebulized treatment and Lasix. For thoracentesis. Hypotension, possibly due to AI, off low-dose NE post TAVR. MELANIE: On oxygen at home at altitude, on O2 here. Hyperglycemia: Off insulin SS. NPO for TAVR. AF: Status post pacemaker. Left pleural effusion with left lower lobe atelectasis. On 3 L now, stable. No signs/symptoms of pneumonia. For thoracentesis Thrombocytopenia: Resolving. Tongue swelling: Resolvied. ? cause Plan: Continue care in the intensive care unit. Thoracentesis today. Lasix diuresis. Albuterol p.r.n. Shortness of breath Follow BSs. Continue Insulin PRN. Continue oxygen Follow laboratory, CBC, chest x-ray. 45 min of critical care time spent directly with the patient, not including thoracentesis. Discussed with the patient's family, nursing, and the ICU multi disciplinary team. Subjective: More short of breath after her TAVR, with initially high oxygen requirements of 15 L. Was coughing up blood, wheezing, had rhonchi. Objective: Vital Signs Temp Pulse Resp BP Pulse Ox 36.8 C 105 H 26 H 112/45 L 98 12/08/17 12:30 12/08/17 15:00 12/08/17 15:00 12/08/17 15:00 12/08/17 15:00 Laboratory Results 12/07/17 05:15 12/07/17 05:15 12/07/17 12/08/17 12/09/17 05:59 05:59 05:59 Intake Total 2349 1231 Output Total 890 900 Balance 1459 331 PT 15.0 SEC (12.0-15.0) 12/08/17 05:50 INR 1.16 (0.83-1.16) 12/08/17 05:50 CXR: Left lower lobe atelectasis/left-sided effusion. Physical Exam - Physical Exam General Appearance: alert, mild distress EENT: PERRL/EOMI, other (Nasal cannula in place with decreasing oxygen requirements) Respiratory: decreased breath sounds (With dullness at the left base) Cardiac/Chest: other (Paced at times, junctional at other) Abdomen: normal bowel sounds, non-tender, soft Pelvic Exam: other (Shannon catheter in place, adequate urine output) Skin: warm/dry, pallor Extremities: pedal edema (Trace) Neuro/Psych: no motor/sensory deficits (Globally weak), No cognition abnormalities ICD10 Worksheet Patient Problems: Problems Problem Status Onset Tricuspid insufficiency Acute Aortic stenosis Acute Acute blood loss anemia Acute S/P aortic valve repair Acute S/P tricuspid valve repair Acute S/P mitral valve replacement with bioprosthetic valve Acute Mitral stenosis Acute Symptomatic anemia Acute
--- NOTE | 2017-12-08 16:51 | GPN ---
[f rep st] PROCEDURE NOTE PROCEDURE: Thoracentesis. INDICATION: Left pleural effusion with increased shortness of breath post transcatheter aortic valve replacement. DESCRIPTION OF PROCEDURE: The procedure was done in the patient's room in the intensive care unit. Informed consent was obtained from the patient and her family. Risks and benefits were discussed. A ppropriate time-out was performed. The procedure was done using standard sterile technique. Following chlorhexidine preparation, the intercostal space between ribs 7 and 8 was anesthetized with 1% lidocaine. The thoracentesis catheter was passed into the patient's pleural effusion. Approxima tely 300 cc of bloody serous fluid was removed without significant difficulty. When no further fluid could be obtained, the catheter was withdrawn and a Band-Aid applied. A chest x-ray is pending at t he time of this dictation. ASSESSMENT: Successful small volume thoracentesis. /[id number]/MODL
--- NOTE | 2017-12-08 18:36 | GOP ---
[f rep st] OPERATIVE REPORT DATE OF OPERATION: 12/08/2017 SURGEON: Jf Cantu DO PREOPERATIVE DIAGNOSIS: Aortic insufficiency. POSTOPERATIVE DIAGNOSIS: Aortic insufficiency. PROCEDURE PERFORMED: Deployment of a 26 mm Evolut R valve via a transfemoral approach. FINDINGS: DESCRIPTION OF PROCEDURE: After access from both groins was obtained by Dr. Avila percutaneously, I then placed the core valve across the aortic valve under fluoroscopic, angiographic, and echo elysia nce. This was then deployed in the standard fashion with confirmation of adequate placement. There was no impairment of the mitral valve prosthesis and good coaxial alignment. Full deployment was per formed. There was no significant paravalvular leak identified. Diastolic pressures were increased a pproximately 69 to 70 from 45 to 50. The patient remained hemodynamically stable. Dr. Avila and I then closed the left common femoral artery with previously placed Perclose devices. Pressure was ap plied. Heparin was reversed with protamine. The patient was returned, remained in the supervisor dental laboratory for subsequent permanent pacemaker placement. The patient was then returned to ICU in stable condition. CO-SURGEONS: Jf Cantu DO; Joaquim Bernabe MD; Edward Torres MD; and Tio Avila MD. /[id number]/MODL
[2017-12-08] MEDS: FLUCONAZOLE/NaCl 100 ML IV SCH (20:11)
[2017-12-08] MEDS: FERROUS SULFATE 325 MG TAB PO SCH (21:10)
[2017-12-08] MEDS: ATORVASTATIN CALCIUM 10 MG TAB PO SCH (21:10)
[2017-12-09 05:52] LABS: PLATELET COUNT 103 10^3/uL (150-400)
[2017-12-09 06:01] LABS: INR 1.33 (0.83-1.16); PROTIME(PATIENT) 16.7 SEC (12.0-15.0)
[2017-12-09] MEDS: NYSTATIN SUSP 500000 UNIT/5 ML UDCUP PO SCH ×4 (06:21→21:15)
--- NOTE | 2017-12-09 06:42 | SOAPPROG ---
BREA Progress Note Assessment/Plan: POD #7: Debridement of mitral valve and replacement with #25 Hernandez Magna bioprosthesis, tricuspid valve annuloplasty with #28 Hernandez MC3 ring, aortic valve debridement POD #1: TAVR with #26 Medtronic Evolut POD #1: PPM implantation Bilateral pleural effusions - Left thoracentesis (300 cc) 6 with Seth Membreno Severe MS s/p debridement/replacement - Coumadin with INR goal 2-3, duration 3 months Severe TR s/p annuloplasty - Mgmt as per MVR Moderate s/p debridement with post-op severe AI s/p TAVR - Mgmt as per MVR Acute blood loss anemia with coagulopathy - Stable - see blood bank section for details 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 Patel - bleeding risk while on Coumadin discussed - BB/Plavix/statin for secondary prevention when appropriate VT prophylaxis - Heparin SQ until Coumadin therapeutic/SCDs Subjective: Very thirsty and would like to know when she can drink. Objective: Vital Signs Temp Pulse Resp BP Pulse Ox 37.1 C 80 21 H 119/40 L 97 12/09/17 04:00 12/09/17 06:00 12/09/17 06:00 12/09/17 06:00 12/09/17 06:00 Microbiology 12/08/17 16:05 Gram Stain - Final Pleural Fluid - Aspirate Laboratory Results 12/09/17 05:40 12/09/17 05:40 12/08/17 12/09/17 12/10/17 05:59 05:59 05:59 Intake Total 1231 750 Output Total 900 1600 Balance 331 -850 PT 16.7 SEC (12.0-15.0) H 12/09/17 05:40 INR 1.33 (0.83-1.16) H 12/09/17 05:40 Physical Exam - Physical Exam General Appearance: WD/WN, alert, no apparent distress EENT: No scleral icterus (R), No scleral icterus (L) Neck: normal inspection Respiratory: No respiratory distress Cardiac/Chest: other (?flutter ) Abdomen: non-tender, soft, No distended Skin: normal color, warm/dry Extremities: pedal edema Neuro/Psych: no motor/sensory deficits, alert, normal mood/affect ICD10 Worksheet Patient Problems: Problems Problem Status Onset Acute blood loss anemia Acute Aortic stenosis Acute S/P aortic valve repair Acute S/P mitral valve replacement with bioprosthetic valve Acute S/P tricuspid valve repair Acute Tricuspid insufficiency Acute Mitral stenosis Acute Symptomatic anemia Acute
--- NOTE | 2017-12-09 06:49 | PDCARPN ---
Cardiology Progress Note Chief Complaint: SOB Assessment/Plan: Assessment: s/p bMVR, TV and AV repair subsequent /AI Plan: 12/08/17 06:48 Plan for high-risk TAVR today d/w patient and family in depth about risks/possible complications They are willing to proceed NPO Plan TAVR this AM 12/09/17 06:48 s/p TAVR s/p open MVR/TV repair Better today BP stable NSR vs Aflutter Cr elevated--continue to monitor Continue per CTS Check echo given recent PCI, would re-start plavix Subjective: stable Reviewed/Discussed With: multidisciplinary team Time Spent with Patient: greater than 25 minutes Time Spent with Patient: Greater than 25 minutes spent on this patients care, greater than 50% of time spent counseling, educating, and coordinating care regarding the above mentioned plan. Objective: Vital Signs (8 Hrs) Temp Pulse Resp BP Pulse Ox 12/09/17 06:00 80 21 H 119/40 L 97 12/09/17 05:00 79 22 H 96/42 L 93 12/09/17 04:00 37.1 C 78 23 H 92/44 L 96 12/09/17 03:00 77 20 99/44 L 96 12/09/17 02:00 77 19 95/46 L 96 12/09/17 01:00 77 18 105/50 L 96 12/09/17 00:00 38.1 C 102 H 18 102/45 L 96 12/08/17 23:00 102 H 24 H 99/53 L 95 Intake/Output (24 Hrs) 12/08/17 12/09/17 12/10/17 05:59 05:59 05:59 Intake Total 1231 750 Output Total 900 1600 Balance 331 -850 Intake: Oral (ml) 1040 650 IV Intake (ml) 102 IV Infused (ml) 89 100 FLUCONAZOLE/NaCl 100 ml @ 100 100 mls/hr IV DAILY@1999 [facility] Rx#:[id number] Norepinephrine Bitartrate 89 16 mg In Ns 250 ml @ As Directed IV CONT LUIS MIGUEL Rx#: [id number] Output: Urine (ml) 675 1600 Bedside Commode 675 Incontinence 1000 Toilet 600 Chest Tube Output (ml) 225 Location 3 Left Pleural 225 Other: Weight 83.6 kg 83.6 kg 82.1 kg Number of Voids Bedside Commode 2 Incontinence 1 Toilet 2 Number of Stools Toilet 2 Result Diagrams: 12/09/17 05:40 12/09/17 05:40 - Physical Exam Constitutional: no apparent distress Eyes: PERRL Ears, Nose, Mouth, Throat: dry mucous membranes Cardiovascular: regular rate and rhythm, systolic murmur Peripheral Pulses: 1+: femoral (R), femoral (L) Respiratory: no wheezes Gastrointestinal: normoactive bowel sounds Genitourinary: no suprapubic tenderness Skin: no rashes Musculoskeletal: no muscular tenderness Neurologic: AAOx3 Psychiatric: cooperative ICD10 Worksheet Patient Problems: Problems Problem Status Onset Acute blood loss anemia Acute Aortic stenosis Acute S/P aortic valve repair Acute S/P mitral valve replacement with bioprosthetic valve Acute S/P tricuspid valve repair Acute Tricuspid insufficiency Acute Mitral stenosis Acute Symptomatic anemia Acute
[2017-12-09] MEDS: CHOLECALCIFEROL VIT D3 1,000 UNITS TAB PO SCH (09:48)
[2017-12-09] MEDS: NIACIN ER 500 MG TAB.ER PO SCH (09:48)
[2017-12-09] MEDS: OMEGA-3 FATTY ACIDS 1,000 MG CAP PO SCH ×2 (09:48→14:19)
[2017-12-09] MEDS: SENNOSIDES/DOCUSATE SODIUM TAB PO SCH ×2 (09:48→21:15)
[2017-12-09] MEDS: PANTOPRAZOLE SODIUM 40 MG TAB PO SCH ×2 (09:48→21:15)
--- NOTE | 2017-12-09 11:06 | ASMTCMCOM ---
CM Note CM Note Notes: Met with patient and to discuss SNF referrals. They requested referrals to [facility], [facility], and [facility]. I sent them all and encouraged to visit. Per , (per Dr Cantu) patient will likely discharge December 14. Case Management will follow. Date Signed: 12/09/2017 11:05 AM Electronically Signed By:Nakia Hanley RN
--- NOTE | 2017-12-09 12:23 | PDINTPN ---
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 TAVR 12/08. Acute respiratory failure with hypoxemia and respiratory distress post TAVR. In part secondary to upper airway bleed and blood aspiration. Responded to nebulized treatment and Lasix. S/P thoracentesis for about 300 cc 09/07. Increased creatinine. 1.7 today. Urine output adequate. Follow. Hold on further diuretics. Hypotension, possibly due to AI, off low-dose NE post TAVR. MELANIE: On oxygen at home at altitude, on O2 here. Hyperglycemia: On insulin SS. AF: Status post pacemaker. Left pleural effusion with left lower lobe atelectasis. Improved. No evidence of pneumonia. On 2 L now. Thrombocytopenia: Resolving. Over 100. Tongue swelling: Resolvied. ? cause. Acute blood-loss anemia: Hematocrit approximately 30. No evidence of active bleeding. On iron. Follow. Prophylaxis: On subcu heparin. Coumadin low-dose started today. On pantoprazole twice daily, per her home dosing schedule. Plan: Continue care. Can transfer to PCU per cardiovascular surgery. Hold on further Lasix diuresis. Follow renal function. Follow laboratory, chest x-ray intermittently. Increase ambulation and strengthening as tolerated. 35 min of critical care time spent directly with the patient. Discussed with patient and family, CVS, nursing, and the ICU multi disciplinary team. Subjective: Doing well. Feels better. Up in the chair. Denies pain or shortness of breath. Remains weak. Objective: Vital Signs Temp Pulse Resp BP Pulse Ox 37.1 C 91 24 H 105/60 96 12/09/17 11:28 12/09/17 11:28 12/09/17 11:28 12/09/17 11:28 12/09/17 11:28 Microbiology 12/08/17 16:05 Gram Stain - Final Pleural Fluid - Aspirate Laboratory Results 12/09/17 05:40 12/09/17 05:40 12/08/17 12/09/17 12/10/17 05:59 05:59 05:59 Intake Total 1231 750 Output Total 900 1600 Balance 331 -850 PT 16.7 SEC (12.0-15.0) H 12/09/17 05:40 INR 1.33 (0.83-1.16) H 12/09/17 05:40 CXR: Decreased effusion at the left base. Diaphragm now seen laterally. Infiltrate/atelectasis improving as well. Physical Exam - Physical Exam General Appearance: alert, no apparent distress, other (Up in the chair) EENT: other (Nasal cannula in place at 2 L) Neck: normal inspection Respiratory: lungs clear (Anteriorly), decreased breath sounds (At bases), rales (Present at both bases), No rhonchi, No pleural rub Cardiac/Chest: systolic murmur, irregularly irregular (AFib in 80s), No gallop Abdomen: non-tender, soft, No normal bowel sounds (Decreased, present) Pelvic Exam: other Skin: warm/dry, pallor Extremities: pedal edema (Trace) Neuro/Psych: no motor/sensory deficits (Globally weak), No cognition abnormalities ICD10 Worksheet Patient Problems: Problems Problem Status Onset Tricuspid insufficiency Acute Aortic stenosis Acute Acute blood loss anemia Acute S/P aortic valve repair Acute S/P tricuspid valve repair Acute S/P mitral valve replacement with bioprosthetic valve Acute Mitral stenosis Acute Symptomatic anemia Acute
--- NOTE | 2017-12-09 12:26 | ECHO ---
[email or web address] [address] Main: [phone] Fax: Transthoracic Echocardiogram Name: FERMIN ALFARO MR#: [id number] Study Date: 12/09/2017 Study Time: 08:12 AM Date of : 1935 Age: 82 year(s) Height: 157.5 cm (62 in.) Weight: 83.46 kg (184 lb.) BSA: 1.84 m2 Gender: Female Examination: Echo Indication: s/p TAVR Image Quality: Adequate Contrast: Requested by: Tio Avila BP: 115 mmHg/46 mmHg Heart Rate: Rhythm: Indication: s/p TAVR Procedure Staff General Assembler Installer: Yoli Alonzo RDCS Reading Physician: Tio Avila MD Requesting Provider: Conclusions: Normal global systolic LV function. EF is 59 %. There is a pacemaker lead noted in the right ventricle. A bioprothetic mitral valve is in place. The mitral valve prosthesis exhibits normal function. The aortic valve is a bioprosthesis. The mean gradient post TAVR is 4 mmhg and the peak velocity is 1.4 m/s. There is no evidence of aortic regurgitation. There is a tricuspid valve ring. The prosthetic tricuspid valve is normal. Trivial pericardial effusion. Measurements: Chambers Valvular Assessment AV/MV Valvular Assessment TV/PV Normal Normal Normal Name Value Range Name Value Range Name Value Range Ao Lorie (2D): 2.2 cm (1.4 cm-2.6 AV Vmax: 1.40 m/s (1 m/s-1.7 TV Vmax: 1.49 m/s (0.3 m/s-0.7 cm) m/s) m/s) IVSd (2D): 1.1 cm (0.6 cm-1.1 AV maxP mmHg ( - ) TV Vmean: 0.95 m/s ( - ) cm) AV meanP mmHg ( - ) TV PGmax: 9 mmHg ( - ) LVDd (2D): 3.8 cm (3.9 cm-5.3 JC (VTI): 2.7 cm ( - ) TV PGmean: 4 mmHg ( - ) cm) MV E Vmax: 1.59 m/s ( - ) TV VTI: 32.60 cm ( - ) LVDs (2D): 2.5 cm (2.1 cm-4 MV A Vmax: 0.64 m/s ( - ) PV Vmax: 0.66 m/s (0.6 m/s-0.9 cm) MV E/A: 2.48 ( - ) m/s) LVPWd (2D): 1.0 cm ( - ) MV meanP mmHg ( - ) PV PGmax: 2 mmHg ( - ) LVOTd 2.0 cm 2.0 cm mm MV PHT: 0.083 s ( - ) LVEF (BP): 59 % (>=55 %) MVA (Vmax): 1.2 m/s ( - ) RVDd(2D): 3.0 cm (1.9 cm-3.8 cmmm) MVA (PHT): 2.7 s ( - ) Patient: FERMIN ALFARO Study Date: 12/09/2017 Page 1 of 2 08:12 AM Continued Measurements: Chambers Valvular Assessment AV/MV Valvular Assessment TV/PV Name Value Name Value Name Value LADs: 3.6 cm MV DecTime: 254 m/s CVP (est.): 5 mmHg LADs Lon.1 cm MV E' Septal: 0.07 m/s LA Area: 20.9 cm2 MV E/E' Septal: 24.00 LA Volume: 52 ml MV E/E' Lateral: 26.70 LA Volume Index: 28.3 ml/m2 MV VTI: 56.70 cm RA Area: 12.4 cm2 Findings: Left Ventricle: Normal size left ventricle. No LV hypertrophy. Normal global systolic LV function. EF is 59 %. No regional wall motion abnormality. Unable to assess diastolic dysfunction. Right Ventricle: Normal size right ventricle. Normal RV function. There is a pacemaker lead noted in the right ventricle. Left Atrium: The left atrium is normal in size. Right Atrium: The right atrium is normal in size. Mitral Valve: A bioprothetic mitral valve is in place. The mitral valve prosthesis exhibits normal function. The prosthetic mitral valve is normal. Trivial MV prosthesis regurgitation. Aortic Valve: The aortic valve is a bioprosthesis. Normal functioning aortic valve prosthesis. The prosthetic aortic valve is normal. No prosthesis regurgitation. The mean gradient post TAVR is 4 mmhg and the peak velocity is 1.4 m/s. There is no evidence of aortic regurgitation. Tricuspid Valve: The pulmonary artery pressure is normal. There is a tricuspid valve ring. The prosthetic tricuspid valve is normal. There is trivial to mild tricuspid regurgitation noted. Pulmonic Valve: The pulmonic valve is normal in appearance and function. There is no pulmonic regurgitation seen. Aorta: The aorta is normal. Normal size aortic root measuring 2.2 cm. Pericardium: Trivial pericardial effusion. There is a pleural effusion present. (No Signature Object) Patient: FERMIN ALFARO Study Date: 12/09/2017 Page 2 of 2 08:12 AM [id number]
[2017-12-09] MEDS: HEPARIN 5,000 UNIT/0.5 ML INJ SC SCH ×2 (14:18→21:16)
[2017-12-09] MEDS ORDERED: WARFARIN SODIUM 2.5 MG TAB PO ONE (16:00)
[2017-12-09] MEDS: CLOPIDOGREL BISULFATE 75 MG TAB PO SCH (21:15)
[2017-12-09] MEDS: FERROUS SULFATE 325 MG TAB PO SCH (21:15)
[2017-12-09] MEDS: ATORVASTATIN CALCIUM 10 MG TAB PO SCH (21:15)
[2017-12-09] MEDS: FLUCONAZOLE/NaCl 100 ML IV SCH (21:54)
[2017-12-10 04:29] LABS: INR 1.4 (0.83-1.16); PROTIME(PATIENT) 17.3 SEC (12.0-15.0)
[2017-12-10] MEDS: HEPARIN 5,000 UNIT/0.5 ML INJ SC SCH ×3 (05:51→20:59)
[2017-12-10] MEDS: NYSTATIN SUSP 500000 UNIT/5 ML UDCUP PO SCH ×4 (05:52→20:59)
--- NOTE | 2017-12-10 07:03 | SOAPPROG ---
BREA Progress Note Assessment/Plan: Assessment: POD#8 MVR#25 Magna bioprosthesis, TVA#28 MC3 ring, aortic valve debridement POD #2 TAVR with #26 Medtronic Evolut POD #2 PPM implantation PPD #2 left thoracentesis, 300 cc Severe MS - s/p tissue valve replacement - Coumadin with INR goal 2-3, duration 3 months. Severe TR - s/p annuloplasty - Antithrombotic prophylaxis as per MVR. Moderate - amenable to debridement - Complicated by significant central AI and secondary CHF requiring pressor support. - Successfully repaired by TAVR. - Antithrombotic prophylaxis as per MVR. Acute expected blood loss anemia with thrombocytopenia and coagulopathy - Stable s/p 2u PRBC and 1u Plt. - Fe suppl resumed. - VTE prophylaxis with plavix and coumadin. 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 Pressor needs resolved post TAVR. - Post TAVR LVEF 60%. - Care with fluid management. BB as allowed by BP. Acute post TAVR respiratory insufficiency - s/p upper airway bleed and aspiration of blood - Responsive to bronchodilators, diuresis, and low volume left thoracentesis LOIDA - Post TAVR. Steady rise in Cr to peak of 2 today. Likely prerenal d/t relatively low SBPs and aggressive diuresis. Anticipate prompt resolution w hydration. Post-op arrhythmias - Tachybrady. Pacer dependence on amio and PPM placed. - PAF/Fl with CVR but relatively low SBPs yest. No antinodals administered. Antithrombotic prophylaxis as per MVR. Postop glossitis - Thrush suspected by PCP and started on Nystatin. CAD - patent LAD stent placed Jun 2017 - Plavix for 1 year (thru 06/2018) as per Dr. Patel - bleeding risk while on Coumadin discussed - Eventual secondary prevention with BB/DAPT/statin when appropriate Plan: NS @ 100 ml/h x 1L. Inc activity as tolerated. Cont Coumadin 2.5 mg daily. Dispo - Anticipate SNF in 2-3 days. 12/10/17 06:55 Subjective: Weak and tired Objective: Vital Signs Temp Pulse Resp BP Pulse Ox 36.8 C 102 H 16 124/63 H 90 L 12/10/17 04:00 12/10/17 04:00 12/10/17 04:00 12/10/17 04:00 12/10/17 04:00 Microbiology 12/08/17 16:05 Gram Stain - Final Pleural Fluid - Aspirate Laboratory Results 12/10/17 03:46 12/10/17 03:46 12/09/17 12/10/17 12/11/17 05:59 05:59 05:59 Intake Total 750 750 Output Total 1600 350 Balance -850 400 PT 17.3 SEC (12.0-15.0) H 12/10/17 03:46 INR 1.40 (0.83-1.16) H 12/10/17 03:46 Holding SR w 1st degree AVB since yest afternoon. SBPs > 100. Marginal UOP after yest diuresis. Upward trending BUN/Cr. CXR-> small bilat pl effusions w compressive atelectasis. Slowly rising INR. Physical Exam - Physical Exam General Appearance: alert, no apparent distress Respiratory: crackles (bases) Cardiac/Chest: regular rate, rhythm, tachycardia, other (Sternotomy and CT sites CDI. Pacer dressing CDI) Abdomen: non-tender, soft Skin: warm/dry Extremities: other (no visible dependent edema) ICD10 Worksheet Patient Problems: Problems Problem Status Onset Acute blood loss anemia Acute Aortic stenosis Acute S/P aortic valve repair Acute S/P mitral valve replacement with bioprosthetic valve Acute S/P tricuspid valve repair Acute Tricuspid insufficiency Acute Mitral stenosis Acute Symptomatic anemia Acute
--- NOTE | 2017-12-10 08:54 | PDCONSULT ---
Warp Clamper Note: Examined patient's pacer incision site today. No pain or tenderness noted to the site. Mild, bibasilar crackles noted, but clearing was appreciated with IS use. Sitting up in chair, doing well today. would arrange outpatient follow up with cardiology in 7-10 days as well as pacer reinterrogation at that time
[2017-12-10] MEDS: NS 1,000 ML IV SCH ×2 (09:55→18:56)
[2017-12-10] MEDS: PANTOPRAZOLE SODIUM 40 MG TAB PO SCH ×2 (09:56→20:59)
[2017-12-10] MEDS: SENNOSIDES/DOCUSATE SODIUM TAB PO SCH (09:56)
[2017-12-10] MEDS: CHOLECALCIFEROL VIT D3 1,000 UNITS TAB PO SCH (09:56)
--- NOTE | 2017-12-10 14:38 | ASMTCMCOM ---
CM Note CM Note Notes: 12/10/2017 Case Management Note Met w/pt and life partner since 1976 Wilton Puri [phone]. Wilton toured 3 facilities yesterday with his daughter. Family has chosen [facility]. Faxed updates to [facility]. [facility] Date Signed: 12/10/2017 02:37 PM Electronically Signed By:Sugar Weathers RN
--- NOTE | 2017-12-10 14:59 | ASMTLACE ---
[place] Length of stay for Answers: 7-13 days current admission Acuity / Level of Answers: Yes Care: Did the patient have an inpatient admission? Comorbidities - select Answers: Any tumor (including all that apply lymphoma or leukemia) Congestive heart failure Coronary Artery Disease Other Notes: HTN # of Emergency department Answers: 0 visits in the last 6 months Social determinants Answers: Mental health diagnosis (anxiety, depression, pers onality disorders, etc.) Score: 18 Date Signed: 12/10/2017 02:58 PM Electronically Signed By:Veronica De La O
[2017-12-10] MEDS ORDERED: WARFARIN SODIUM 2.5 MG TAB PO ONE (16:00)
[2017-12-10] MEDS ORDERED: FLUCONAZOLE 100 MG TAB PO SCH (20:00)
[2017-12-10] MEDS: FERROUS SULFATE 325 MG TAB PO SCH (20:59)
[2017-12-10] MEDS: ATORVASTATIN CALCIUM 10 MG TAB PO SCH (20:59)
[2017-12-10] MEDS: CLOPIDOGREL BISULFATE 75 MG TAB PO SCH (20:59)
[2017-12-11 04:35] LABS: INR 2.05 (0.83-1.16); PROTIME(PATIENT) 23.2 SEC (12.0-15.0)
[2017-12-11] MEDS: HEPARIN 5,000 UNIT/0.5 ML INJ SC SCH (05:45)
[2017-12-11] MEDS: NYSTATIN SUSP 500000 UNIT/5 ML UDCUP PO SCH ×4 (05:45→21:16)
--- NOTE | 2017-12-11 06:44 | SOAPPROG ---
BREA Progress Note Assessment/Plan: POD #9: Debridement of mitral valve and replacement with #25 Hernandez Magna bioprosthesis, tricuspid valve annuloplasty with #28 Hernandez MC3 ring, aortic valve debridement POD #3: TAVR with #26 Medtronic Evolut POD #3: PPM implantation LOIDA, pre-renal - Improvement in renal function after fluid resuscitation Bilateral pleural effusions - Left thoracentesis (300 cc) 6/ with Seth Membreno Severe MS s/p debridement/replacement - Coumadin with INR goal 2-3, duration 3 months Severe TR s/p annuloplasty - Mgmt as per MVR Moderate s/p debridement with post-op severe AI s/p TAVR - Mgmt as per MVR Acute blood loss anemia with coagulopathy - Stable - see blood bank section for details 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 Patel - bleeding risk while on Coumadin discussed - BB/Plavix/statin for secondary prevention when appropriate VT prophylaxis - Coumadin/SCDs Disposition - SNF in the next couple of days Subjective: Feels weak although strength is improving. Denies SOB. Objective: Vital Signs Temp Pulse Resp BP Pulse Ox 36.4 C 91 15 104/56 L 96 12/11/17 03:54 12/11/17 03:54 12/11/17 03:54 12/11/17 03:54 12/11/17 03:54 Microbiology 12/08/17 16:05 Gram Stain - Final Pleural Fluid - Aspirate Laboratory Results 12/10/17 03:46 12/11/17 03:49 12/10/17 12/11/17 12/12/17 05:59 05:59 05:59 Intake Total 750 2250 Output Total 350 150 Balance 400 2100 PT 23.2 SEC (12.0-15.0) H 12/11/17 03:49 INR 2.05 (0.83-1.16) H 12/11/17 03:49 Physical Exam - Physical Exam General Appearance: WD/WN, alert, no apparent distress EENT: No scleral icterus (R), No scleral icterus (L) Neck: normal inspection Respiratory: No respiratory distress Cardiac/Chest: other (flutter) Abdomen: non-tender, soft, No distended Skin: normal color, warm/dry Extremities: pedal edema Neuro/Psych: no motor/sensory deficits, alert, normal mood/affect, oriented x 3 ICD10 Worksheet Patient Problems: Problems Problem Status Onset Acute blood loss anemia Acute Aortic stenosis Acute S/P aortic valve repair Acute S/P mitral valve replacement with bioprosthetic valve Acute S/P tricuspid valve repair Acute Tricuspid insufficiency Acute Mitral stenosis Acute Symptomatic anemia Acute
[2017-12-11] MEDS: CHOLECALCIFEROL VIT D3 1,000 UNITS TAB PO SCH (08:25)
[2017-12-11] MEDS: PANTOPRAZOLE SODIUM 40 MG TAB PO SCH ×2 (08:25→21:15)
--- NOTE | 2017-12-11 12:28 | ASMTCMCOM ---
CM Note CM Note Notes: 12/11/2017 Case Management Note Discussed case with Dr. Cantu. Pt likely to d/c on Thursday to SNF rehab. [facility] Case Management to follow. Date Signed: 12/11/2017 12:27 PM Electronically Signed By:Sugar Weathers RN
[2017-12-11] MEDS ORDERED: WARFARIN SODIUM 1 MG TAB PO ONE (16:00)
[2017-12-11] MEDS: CLOPIDOGREL BISULFATE 75 MG TAB PO SCH (21:15)
[2017-12-11] MEDS: FERROUS SULFATE 325 MG TAB PO SCH (21:15)
[2017-12-11] MEDS: ATORVASTATIN CALCIUM 10 MG TAB PO SCH (21:15)
[2017-12-12 04:41] LABS: INR 2.09 (0.83-1.16); PROTIME(PATIENT) 23.5 SEC (12.0-15.0)
[2017-12-12] MEDS: NYSTATIN SUSP 500000 UNIT/5 ML UDCUP PO SCH (06:03)
[2017-12-12] MEDS: SENNOSIDES/DOCUSATE SODIUM TAB PO PRN (08:23)
[2017-12-12] MEDS: CHOLECALCIFEROL VIT D3 1,000 UNITS TAB PO SCH (08:23)
[2017-12-12] MEDS: PANTOPRAZOLE SODIUM 40 MG TAB PO SCH ×2 (08:23→21:38)
--- NOTE | 2017-12-12 11:43 | SOAPPROG ---
BREA Progress Note Assessment/Plan: POD #10: Debridement of mitral valve and replacement with #25 Hernandez Magna bioprosthesis, tricuspid valve annuloplasty with #28 Hernandez MC3 ring, aortic valve debridement POD #4: TAVR with #26 Medtronic Evolut POD #4: PPM implantation LOIDA, pre-renal - Improvement in renal function after fluid resuscitation. Cr 1.1 today. Bilateral pleural effusions - Left thoracentesis (300 cc) 12/08 with Seth Membreno. - PA/lat CXR today shows unchanged small bilat pleural effusions. - On Lasix. 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 - Will initiate BB when appropriate. Post-op rhythm issues - s/p PPM - Aflutter (rate-controlled) 12/10. Currently in SR 90's. - On Amiodarone 200mg BID x 30 days. CAD with 06/2017 LAD stent - Plavix for 1 year (06/2018) as per Dr. Patel - bleeding risk while on Coumadin discussed - On Plavix and Lipitor. BB when appropriate. VT prophylaxis - Coumadin/SCDs Disposition - SNF in the next couple of days Subjective: Patient reports good pain control. "I am just so weak." Objective: Vital Signs Temp Pulse Resp BP Pulse Ox 36.7 C 92 12 97/56 L 94 12/12/17 08:00 12/12/17 08:00 12/12/17 08:00 12/12/17 08:00 12/12/17 08:00 Microbiology 12/08/17 16:05 Gram Stain - Final Pleural Fluid - Aspirate Body Fluid Culture - Final Laboratory Results 12/10/17 03:46 12/12/17 03:46 12/11/17 12/12/17 12/13/17 05:59 05:59 05:59 Intake Total 2250 850 Output Total 350 1125 Balance 1900 -275 PT 23.5 SEC (12.0-15.0) H 12/12/17 03:46 INR 2.09 (0.83-1.16) H 12/12/17 03:46 Physical Exam - Physical Exam General Appearance: WD/WN, alert, no apparent distress Neck: supple Respiratory: lungs clear, decreased breath sounds (bases), other (No murmurs, rubs, gallops) Cardiac/Chest: regular rate, rhythm, other (No murmurs, rubs, gallops. Sternum stable. Sternotomy c/d/i. ) Abdomen: normal bowel sounds, non-tender, soft Skin: normal color, warm/dry Extremities: other (Warm, 1-2+ pitting edema lower extremities) Neuro/Psych: alert, normal mood/affect, oriented x 3 ICD10 Worksheet Patient Problems: Problems Problem Status Onset Acute blood loss anemia Acute Aortic stenosis Acute S/P aortic valve repair Acute S/P mitral valve replacement with bioprosthetic valve Acute S/P tricuspid valve repair Acute Tricuspid insufficiency Acute Mitral stenosis Acute Symptomatic anemia Acute
[2017-12-12] MEDS ORDERED: WARFARIN SODIUM 1 MG TAB PO ONE (16:00)
[2017-12-12] MEDS: FERROUS SULFATE 325 MG TAB PO SCH (21:38)
[2017-12-12] MEDS: ATORVASTATIN CALCIUM 10 MG TAB PO SCH (21:38)
[2017-12-12] MEDS: AMIODARONE HCL 200 MG TAB PO SCH (21:38)
[2017-12-12] MEDS: CLOPIDOGREL BISULFATE 75 MG TAB PO SCH (21:38)
--- NOTE | 2017-12-13 00:50 | CPEKG ---
Heart Rate: 80 RR Interval: 750 QRSD Interval: 122 QT Interval: 416 QTC Interval: 480 QRS [place]: 37 T Wave [place]: 197 EKG Severity - ABNORMAL ECG - EKG Impression: A-FLUTTER W/ PREDOM 4:1 AV BLOCK, A-RATE 306 EKG Impression: LEFT BUNDLE BRANCH BLOCK Electronically Signed By: Rika Hess 13-Dec-2017 07:07:57
[2017-12-13 04:47] LABS: INR 2.34 (0.83-1.16); PROTIME(PATIENT) 25.6 SEC (12.0-15.0)
[2017-12-13] MEDS ORDERED: CANN-EASE 2 GM TUBE TP PRN (09:09)
[2017-12-13] MEDS: OMEGA-3 FATTY ACIDS 1,000 MG CAP PO SCH ×2 (10:09→10:20)
[2017-12-13] MEDS: CHOLECALCIFEROL VIT D3 1,000 UNITS TAB PO SCH (10:09)
[2017-12-13] MEDS: PANTOPRAZOLE SODIUM 40 MG TAB PO SCH ×2 (10:09→21:25)
[2017-12-13] MEDS: NIACIN ER 500 MG TAB.ER PO SCH ×2 (10:09→21:25)
[2017-12-13] MEDS: AMIODARONE HCL 200 MG TAB PO SCH ×2 (10:09→21:25)
[2017-12-13] MEDS: POTASSIUM CL 20 MEQ TAB PO SCH ×2 (10:12→21:24)
[2017-12-13] MEDS: FUROSEMIDE 40 MG TAB PO SCH ×2 (10:12→15:57)
--- NOTE | 2017-12-13 11:52 | SOAPPROG ---
BREA Progress Note Assessment/Plan: POD #11: Debridement of mitral valve and replacement with #25 Hernandez Magna bioprosthesis, tricuspid valve annuloplasty with #28 Hernandez MC3 ring, aortic valve debridement POD #5: TAVR with #26 Medtronic Evolut POD #5: PPM implantation LOIDA, pre-renal - Improvement in renal function after fluid resuscitation. Cr 0.9 today. Bilateral pleural effusions - Left thoracentesis (300 cc) 12/08 with Seth Membreno. - CT chest without contrast today to assess right pleural effusion - On Lasix Severe MS s/p debridement/replacement - Coumadin with INR goal 2-3, duration 3 months. INR 2.3. 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 Post-op rhythm issues - s/p PPM - Aflutter (rate-controlled) on 12/10. Currently in Aflutter 70-80's. - On Amiodarone 200mg BID and Coumadin. CAD with 06/2017 LAD stent - Plavix for 1 year (06/2018) as per Dr. Patel - bleeding risk while on Coumadin discussed - On Plavix and Lipitor. BB when appropriate. VT prophylaxis - Coumadin/SCDs Disposition - [facility] in the next couple of days Subjective: Patient reports good pain control and has no complaints. Objective: Vital Signs Temp Pulse Resp BP Pulse Ox 36.9 C 80 18 127/62 H 90 L 12/13/17 11:09 12/13/17 11:09 12/13/17 11:09 12/13/17 11:09 12/13/17 11:09 Laboratory Results 12/10/17 03:46 12/13/17 04:15 12/12/17 12/13/17 12/14/17 05:59 05:59 05:59 Intake Total 850 1080 Output Total 1125 300 Balance -275 780 PT 25.6 SEC (12.0-15.0) H 12/13/17 04:15 INR 2.34 (0.83-1.16) H 12/13/17 04:15 Physical Exam - Physical Exam General Appearance: WD/WN, alert, no apparent distress Neck: supple Respiratory: lungs clear, normal breath sounds, decreased breath sounds (mid lung barnes to bases. No wheezing, rhonchi, rales. ) Cardiac/Chest: regular rate, rhythm, other (No murmurs, rubs, gallops. Sternum stable. Sternotomy c/d/i. ) Abdomen: normal bowel sounds, non-tender, soft Skin: normal color, warm/dry Extremities: other (Warm, 2-3+ lower extremity pitting edema ) Neuro/Psych: alert, normal mood/affect, oriented x 3 ICD10 Worksheet Patient Problems: Problems Problem Status Onset Acute blood loss anemia Acute Aortic stenosis Acute S/P aortic valve repair Acute S/P mitral valve replacement with bioprosthetic valve Acute S/P tricuspid valve repair Acute Tricuspid insufficiency Acute Mitral stenosis Acute Symptomatic anemia Acute
[2017-12-13] MEDS ORDERED: FUROSEMIDE 40 MG TAB PO SCH (15:00)
[2017-12-13] MEDS ORDERED: WARFARIN SODIUM 1 MG TAB PO ONE (16:00)
[2017-12-13] MEDS: ATORVASTATIN CALCIUM 10 MG TAB PO SCH (21:25)
[2017-12-13] MEDS: CLOPIDOGREL BISULFATE 75 MG TAB PO SCH (21:25)
[2017-12-13] MEDS: FERROUS SULFATE 325 MG TAB PO SCH (21:25)
[2017-12-13] MEDS ORDERED: FUROSEMIDE 40 MG/4 ML VIAL IVP ONE (22:44)
[2017-12-14 04:20] LABS: INR 2.54 (0.83-1.16); PROTIME(PATIENT) 27.3 SEC (12.0-15.0)
--- NOTE | 2017-12-14 07:37 | SOAPPROG ---
SOAP Progress Note Assessment/Plan: Assessment: POD#12 MVR#25 Magna bioprosthesis, TVA#28 MC3 ring, aortic valve debridement POD #6 TAVR with #26 Medtronic Evolut POD #6 PPM implantation PPD #6 left thoracentesis, 300 cc Severe MS - s/p tissue valve replacement - Coumadin with INR goal 2-3, duration 3 months. Severe TR - s/p annuloplasty - Antithrombotic prophylaxis as per MVR. Moderate - amenable to debridement - Complicated by significant central AI and secondary CHF requiring pressor support. - Successfully repaired by TAVR. - Antithrombotic prophylaxis as per MVR. Acute expected blood loss anemia with thrombocytopenia and coagulopathy - Stable s/p 2u PRBC and 1u Plt. - Fe suppl resumed. - VTE prophylaxis with plavix and coumadin. 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 Pressor needs resolved post TAVR and small volume left thoracentesis. - Post TAVR LVEF 60%. - Residual bilateral pleural effusions, R > L - Diuresis in progress. BB as allowed by BP. Acute post TAVR respiratory insufficiency - s/p upper airway bleed and aspiration of blood - Responsive to bronchodilators, diuresis, and low volume left thoracentesis LOIDA, prerenal - Post TAVR. Peak Cr of 2. Prompt resolution w careful fluid management. Post-op arrhythmias - Tachybrady. Pacer dependence on amio and PPM placed. - Intermittent PAF/Fl with CVR. Started on amiodarone. Adjunctive BB as allowed by BP. Antithrombotic prophylaxis as per MVR. Postop glossitis - Thrush suspected by PCP. Antifungal course completed. CAD - patent LAD stent placed Jun 2017 - Plavix for 1 year (thru 06/2018) as per Dr. Patel - bleeding risk while on Coumadin discussed - Eventual secondary prevention with BB/DAPT/statin when appropriate Plan: US guided rt thoracentesis by IR. Inc activity as tolerated. Cont amio 200 mg BID. Cont BID diuresis. Cont Coumadin 1 mg daily. Dispo - SNF ([facility]) when medically stable. 12/14/17 07:32 Subjective: Generally weak but pleased that finally able to walk 1 lap around the [place]. Objective: Vital Signs Temp Pulse Resp BP Pulse Ox 36.4 C 83 14 96/64 L 94 07/02/18 07:22 12/14/17 07:22 12/14/17 07:22 12/14/17 07:22 12/14/17 07:22 Laboratory Results 12/10/17 03:46 12/14/17 03:48 12/13/17 12/14/17 12/15/17 05:59 05:59 05:59 Intake Total 1080 1470 Output Total 300 300 Balance 780 1170 PT 27.3 SEC (12.0-15.0) H 12/14/17 03:48 INR 2.54 (0.83-1.16) H 12/14/17 03:48 Physical Exam - Physical Exam General Appearance: alert, no apparent distress Respiratory: decreased breath sounds (bilateral bases) Cardiac/Chest: irregularly irregular (aflutter w variable block), other ( Sternum grossly stable. Sternotomy and chest tube sites CDI) Abdomen: non-tender, soft Skin: warm/dry Extremities: swelling (1+ dependent) ICD10 Worksheet Patient Problems: Problems Problem Status Onset Acute blood loss anemia Acute Aortic stenosis Acute S/P aortic valve repair Acute S/P mitral valve replacement with bioprosthetic valve Acute S/P tricuspid valve repair Acute Tricuspid insufficiency Acute Mitral stenosis Acute Symptomatic anemia Acute
[2017-12-14] MEDS ORDERED: LIDOCAINE 1% 300 MG/30 ML SDV ONE (09:21)
[2017-12-14] MEDS: NIACIN ER 500 MG TAB.ER PO SCH ×2 (09:22→22:00)
[2017-12-14] MEDS: PANTOPRAZOLE SODIUM 40 MG TAB PO SCH ×2 (09:22→22:00)
[2017-12-14] MEDS: AMIODARONE HCL 200 MG TAB PO SCH ×2 (09:23→22:00)
[2017-12-14] MEDS: CHOLECALCIFEROL VIT D3 1,000 UNITS TAB PO SCH (09:23)
[2017-12-14] MEDS: FUROSEMIDE 40 MG TAB PO SCH ×2 (09:23→15:32)
[2017-12-14] MEDS: POTASSIUM CL 20 MEQ TAB PO SCH ×2 (09:23→22:00)
[2017-12-14] MEDS: OMEGA-3 FATTY ACIDS 1,000 MG CAP PO SCH (09:23)
--- NOTE | 2017-12-14 10:31 | ASMTCMCOM ---
CM Note CM Note Notes: 12/14/2017 Case Management Note Pt is post op day # 6 s/p TAVR. Per MD note pt to have US guided rt thoracentesis by IR. PT is recommending SNF rehab. [facility] Case Management d/c poc: to [facility] D/C date is unclear at this time. Case Management will continue to follow. Date Signed: 12/14/2017 10:30 AM Electronically Signed By:Sugar Weathers RN
[2017-12-14] MEDS: WARFARIN SODIUM 1 MG TAB PO SCH (15:32)
[2017-12-14] MEDS: ATORVASTATIN CALCIUM 10 MG TAB PO SCH (22:00)
[2017-12-14] MEDS: FERROUS SULFATE 325 MG TAB PO SCH (22:00)
[2017-12-14] MEDS: CLOPIDOGREL BISULFATE 75 MG TAB PO SCH (22:00)
[2017-12-15 04:45] LABS: INR 2.89 (0.83-1.16); PROTIME(PATIENT) 30.1 SEC (12.0-15.0)
--- NOTE | 2017-12-15 07:31 | SOAPPROG ---
SOAP Progress Note Assessment/Plan: POD #13: Debridement of mitral valve and replacement with #25 Hernandez Magna bioprosthesis, tricuspid valve annuloplasty with #28 Hernandez MC3 ring, aortic valve debridement POD #7: TAVR with #26 Medtronic Evolut POD #7: PPM implantation POD #7: left thoracentesis (300 cc) POD #1: right thoracentesis (600 cc) LOIDA, pre-renal - Resolved Bilateral pleural effusions - Continue diuresis, drain as needed Severe MS s/p debridement/replacement - Coumadin with INR goal 2-3, duration 3 months Severe TR s/p annuloplasty - Mgmt as per MVR Moderate s/p debridement with post-op severe AI s/p TAVR - Mgmt as per MVR Acute blood loss anemia with coagulopathy - Stable - see blood bank section for details 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 Denies SOB/pain. Objective: Vital Signs Temp Pulse Resp BP Pulse Ox 36.7 C 104 H 18 100/83 H 96 12/15/17 07:17 12/15/17 07:17 12/15/17 07:17 12/15/17 07:17 12/15/17 07:17 Laboratory Results 12/10/17 03:46 12/14/17 03:48 12/14/17 12/15/17 12/16/17 05:59 05:59 05:59 Intake Total 1470 1780 Output Total 300 2325 Balance 1170 -545 PT 30.1 SEC (12.0-15.0) H 12/15/17 03:52 INR 2.89 (0.83-1.16) H 12/15/17 03:52 Physical Exam - Physical Exam General Appearance: WD/WN, alert, no apparent distress EENT: No scleral icterus (R), No scleral icterus (L) Neck: normal inspection Respiratory: No respiratory distress Cardiac/Chest: irregularly irregular Abdomen: non-tender, soft, No distended Skin: normal color, warm/dry Extremities: pedal edema Neuro/Psych: no motor/sensory deficits, alert, normal mood/affect, oriented x 3 ICD10 Worksheet Patient Problems: Problems Problem Status Onset Acute blood loss anemia Acute Aortic stenosis Acute S/P aortic valve repair Acute S/P mitral valve replacement with bioprosthetic valve Acute S/P tricuspid valve repair Acute Tricuspid insufficiency Acute Mitral stenosis Acute Symptomatic anemia Acute
[2017-12-15] MEDS: AMIODARONE HCL 200 MG TAB PO SCH ×2 (10:42→22:23)
[2017-12-15] MEDS: FUROSEMIDE 40 MG TAB PO SCH ×2 (10:42→15:53)
[2017-12-15] MEDS: PANTOPRAZOLE SODIUM 40 MG TAB PO SCH ×2 (10:42→22:23)
[2017-12-15] MEDS: POTASSIUM CL 20 MEQ TAB PO SCH ×2 (10:44→22:25)
[2017-12-15] MEDS: CHOLECALCIFEROL VIT D3 1,000 UNITS TAB PO SCH (10:45)
[2017-12-15] MEDS: OMEGA-3 FATTY ACIDS 1,000 MG CAP PO SCH ×2 (10:45→10:50)
[2017-12-15] MEDS: NIACIN ER 500 MG TAB.ER PO SCH ×2 (10:45→22:23)
[2017-12-15] MEDS: SENNOSIDES/DOCUSATE SODIUM TAB PO PRN (10:45)
[2017-12-15] MEDS ORDERED: LIDOCAINE 1% 300 MG/30 ML SDV ONE (14:05)
[2017-12-15] MEDS: WARFARIN SODIUM 1 MG TAB PO SCH (15:54)
[2017-12-15] MEDS: FERROUS SULFATE 325 MG TAB PO SCH (22:23)
[2017-12-15] MEDS: CLOPIDOGREL BISULFATE 75 MG TAB PO SCH (22:23)
[2017-12-15] MEDS: ATORVASTATIN CALCIUM 10 MG TAB PO SCH (22:23)
[2017-12-16 04:03] LABS: INR 3.41 (0.83-1.16); PROTIME(PATIENT) 34.2 SEC (12.0-15.0)
--- NOTE | 2017-12-16 07:37 | SOAPPROG ---
SOAP Progress Note Assessment/Plan: POD #14: Debridement of mitral valve and replacement with #25 Hernandez Magna bioprosthesis, tricuspid valve annuloplasty with #28 Hernandez MC3 ring, aortic valve debridement POD #8: TAVR with #26 Medtronic Evolut POD #8: PPM implantation POD #8: Left thoracentesis (300 cc) POD #2: Right thoracentesis (600 cc) POD #1: Left thoracentesis (400 cc) LOIDA, pre-renal - Resolved Bilateral pleural effusions - Continue diuresis, drain as needed Severe MS s/p debridement/replacement - Coumadin with INR goal 2-3, duration 3 months Severe TR s/p annuloplasty - Mgmt as per MVR Moderate s/p debridement with post-op severe AI s/p TAVR - Mgmt as per MVR Acute blood loss anemia with coagulopathy - Stable - see blood bank section for details 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 Was up and waking already this morning. Objective: Vital Signs Temp Pulse Resp BP Pulse Ox 36.9 C 111 H 12 99/51 L 96 12/16/17 04:00 12/16/17 04:00 12/16/17 04:00 12/16/17 04:00 12/16/17 04:00 Laboratory Results 12/10/17 03:46 12/14/17 03:48 12/15/17 12/16/17 12/17/17 05:59 05:59 05:59 Intake Total 1780 1250 Output Total 2325 1025 Balance -545 225 PT 34.2 SEC (12.0-15.0) H 12/16/17 03:45 INR 3.41 (0.83-1.16) H 12/16/17 03:45 Physical Exam - Physical Exam General Appearance: WD/WN, alert, no apparent distress EENT: No scleral icterus (R), No scleral icterus (L) Neck: normal inspection Respiratory: No respiratory distress Cardiac/Chest: irregularly irregular Abdomen: non-tender, soft, No distended Skin: normal color, warm/dry Extremities: pedal edema Neuro/Psych: no motor/sensory deficits, alert, normal mood/affect, oriented x 3 ICD10 Worksheet Patient Problems: Problems Problem Status Onset Acute blood loss anemia Acute Aortic stenosis Acute S/P aortic valve repair Acute S/P mitral valve replacement with bioprosthetic valve Acute S/P tricuspid valve repair Acute Tricuspid insufficiency Acute Mitral stenosis Acute Symptomatic anemia Acute
[2017-12-16] MEDS: CHOLECALCIFEROL VIT D3 1,000 UNITS TAB PO SCH (09:50)
[2017-12-16] MEDS: FUROSEMIDE 40 MG TAB PO SCH (09:51)
[2017-12-16] MEDS: NIACIN ER 500 MG TAB.ER PO SCH ×2 (09:52→21:15)
[2017-12-16] MEDS: POTASSIUM CL 20 MEQ TAB PO SCH ×2 (09:52→21:16)
[2017-12-16] MEDS: AMIODARONE HCL 200 MG TAB PO SCH ×2 (09:52→21:16)
[2017-12-16] MEDS: OMEGA-3 FATTY ACIDS 1,000 MG CAP PO SCH (10:12)
[2017-12-16] MEDS: METOPROLOL TARTRATE 25 MG TAB PO SCH ×2 (10:23→21:29)
[2017-12-16] MEDS: FUROSEMIDE 100 MG/10 ML VIAL IVP SCH ×2 (10:23→15:59)
[2017-12-16] MEDS: PANTOPRAZOLE SODIUM 40 MG TAB PO SCH (21:15)
[2017-12-16] MEDS: CLOPIDOGREL BISULFATE 75 MG TAB PO SCH (21:15)
[2017-12-16] MEDS: FERROUS SULFATE 325 MG TAB PO SCH (21:16)
[2017-12-16] MEDS: ATORVASTATIN CALCIUM 10 MG TAB PO SCH (21:29)
[2017-12-17 04:55] LABS: INR 3.68 (0.83-1.16); PROTIME(PATIENT) 36.2 SEC (12.0-15.0)
[2017-12-17] MEDS ORDERED: AMIODARONE HCL 100 ML IV ONE (06:40)
[2017-12-17] MEDS ORDERED: POTASSIUM CL 20 MEQ TAB PO ONE (06:52)
--- NOTE | 2017-12-17 06:55 | SOAPPROG ---
SOAP Progress Note Assessment/Plan: POD #15: Debridement of mitral valve and replacement with #25 Hernandez Magna bioprosthesis, tricuspid valve annuloplasty with #28 Hernandez MC3 ring, aortic valve debridement POD #9: TAVR with #26 Medtronic Evolut POD #9: PPM implantation POD #9: Left thoracentesis (300 cc) POD #3: Right thoracentesis (600 cc) POD #2: Left thoracentesis (400 cc) LOIDA, pre-renal - Resolved Bilateral pleural effusions - Continue diuresis, drain as needed Severe MS s/p debridement/replacement - Coumadin with INR goal 2-3, duration 3 months Severe TR s/p annuloplasty - Mgmt as per MVR Moderate s/p debridement with post-op severe AI s/p TAVR - Mgmt as per MVR Acute blood loss anemia with coagulopathy - Stable - See blood bank section for details 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 Objective: Vital Signs Temp Pulse Resp BP Pulse Ox 36.7 C 116 H 18 94/64 L 95 12/17/17 04:00 12/17/17 04:00 12/17/17 04:00 12/17/17 04:00 12/17/17 04:00 Laboratory Results 12/17/17 04:15 12/17/17 04:15 12/16/17 12/17/17 12/18/17 05:59 05:59 05:59 Intake Total 1250 900 Output Total 1025 1350 Balance 225 -450 PT 36.2 SEC (12.0-15.0) H 12/17/17 04:15 INR 3.68 (0.83-1.16) H 12/17/17 04:15 Physical Exam - Physical Exam General Appearance: WD/WN, alert, no apparent distress EENT: No scleral icterus (R), No scleral icterus (L) Neck: normal inspection Respiratory: No respiratory distress Cardiac/Chest: tachycardia, irregularly irregular Abdomen: non-tender, soft, No distended Skin: normal color, warm/dry Extremities: pedal edema Neuro/Psych: no motor/sensory deficits, alert, normal mood/affect, oriented x 3 ICD10 Worksheet Patient Problems: Problems Problem Status Onset Acute blood loss anemia Acute Aortic stenosis Acute S/P aortic valve repair Acute S/P mitral valve replacement with bioprosthetic valve Acute S/P tricuspid valve repair Acute Tricuspid insufficiency Acute Mitral stenosis Acute Symptomatic anemia Acute
[2017-12-17] MEDS: FUROSEMIDE 100 MG/10 ML VIAL IVP SCH ×2 (08:39→17:45)
[2017-12-17] MEDS: NIACIN ER 500 MG TAB.ER PO SCH ×2 (08:40→20:38)
[2017-12-17] MEDS: METOLAZONE 5 MG TAB PO SCH (08:40)
[2017-12-17] MEDS: CHOLECALCIFEROL VIT D3 1,000 UNITS TAB PO SCH (08:40)
[2017-12-17] MEDS: AMIODARONE HCL 200 MG TAB PO SCH ×2 (08:40→20:38)
[2017-12-17] MEDS: PANTOPRAZOLE SODIUM 40 MG TAB PO SCH ×2 (08:40→20:38)
[2017-12-17] MEDS: POTASSIUM CL 20 MEQ TAB PO SCH ×2 (08:41→20:38)
[2017-12-17] MEDS: OMEGA-3 FATTY ACIDS 1,000 MG CAP PO SCH ×2 (08:41→08:45)
[2017-12-17] MEDS ORDERED: DIGOXIN 500 MCG/2 ML AMP IVP ONE ×3 (09:04→17:30)
--- NOTE | 2017-12-17 09:48 | CPEKG ---
Heart Rate: 127 RR Interval: 472 QRSD Interval: 130 QT Interval: 360 QTC Interval: 524 QRS [place]: 44 T Wave [place]: 224 EKG Severity - ABNORMAL ECG - EKG Impression: ATRIAL FLUTTER WITH 2:1 AV BLOCK EKG Impression: LEFT BUNDLE BRANCH BLOCK Electronically Signed By: Jf Kimble 24-Dec-2017 16:23:58
[2017-12-17] MEDS ORDERED: VERAPAMIL 5 MG/2 ML VIAL IVP ONE (10:43)
--- NOTE | 2017-12-17 12:39 | ASMTCMCOM ---
CM Note CM Note Notes: Angelica from [facility] here today to visit with patient. She may need a cardioversion d/t post-operative conduction issues (she is POD #9 PPM placement). Discharge plan remains [facility] when medically stable. Case Management will follow. Date Signed: 12/17/2017 12:38 PM Electronically Signed By:Nakia Hanley RN
--- NOTE | 2017-12-17 13:48 | SOAPPROG ---
SOAP Progress Note Assessment/Plan: Assessment: 82-year-old female with a complex and recent cardiovascular history as described previously. She has had at least a week of rate controlled atrial fibrillation. During her cardiac surgery she did not undergo a [place] 4 procedure. Earlier she developed tachycardia likely a result of conversion from atrial fibrillation to atrial flutter. Fortunately, she appears to be tolerating this arrhythmia without clinical decompensation. Her blood pressures are a little on the low side however are concordant with her hemodynamics over the last several weeks. Her INR is therapeutic. Plan: 1. I do not favor attempts at cardioversion at the present time. Instead, I would like to get better rate control. We may reconsider this depending on her clinical course. 2. I have given her 0.5 mg of IV digoxin and 5 mg of IV verapamil. Her metoprolol has been discontinued as has her metolazone. 3. Cardiovascular surgery has plans to transfuse 1-2 units of packed red blood cells. 4. She will continue her current oral dose of amiodarone. 5. We will follow her heart rate and hemodynamics carefully. 6. She will be made NPO after midnight in case we would like to proceed with cardioversion tomorrow. 12/17/17 13:50 Subjective: 82-year-old female with a cardiovascular history significant for: POD #15: Debridement of mitral valve and replacement with #25 Hernandez Magna bioprosthesis, tricuspid valve annuloplasty with #28 Hernandez MC3 ring, aortic valve debridement POD #9: TAVR with #26 Medtronic Evolut POD #9: PPM implantation POD #9: Left thoracentesis (300 cc) POD #3: Right thoracentesis (600 cc) POD #2: Left thoracentesis (400 cc) She has had postoperative atrial fibrillation for at least 6 days now. This has been relatively rate controlled and asymptomatic. She is therapeutic with respect to her INR. We are asked to see her today regarding the development of atrial flutter with a rapid ventricular response which occurred in the early hours of the morning. In talking to her about this, she states she is not experiencing any symptoms of palpitations. She denies chest pain and breathlessness although she tends to be fairly sedentary currently. She has not had any pauses. No ventricular arrhythmias are noted. Objective: Vital Signs Temp Pulse Resp BP Pulse Ox 36.7 C 136 H 14 111/77 99 12/17/17 11:06 12/17/17 11:06 12/17/17 11:06 12/17/17 11:54 12/17/17 11:06 Laboratory Results 12/17/17 04:15 12/17/17 04:15 12/16/17 12/17/17 12/18/17 05:59 05:59 05:59 Intake Total 1250 900 Output Total 1025 1350 700 Balance 225 -450 -700 PT 36.2 SEC (12.0-15.0) H 12/17/17 04:15 INR 3.68 (0.83-1.16) H 12/17/17 04:15 Electrocardiogram demonstrates atrial flutter with variable block. There is a left bundle branch block. Physical Exam - Physical Exam General Appearance: WD/WN, no apparent distress Neck: non-tender Respiratory: rales (At the bases), No respiratory distress, No accessory muscle use, No decreased breath sounds Cardiac/Chest: edema (1/2 inch pitting edema bilaterally to just above the ankle ), tachycardia, other (Regular, healing sternotomy incision), No gallop, No JVD , No bradycardia Peripheral Pulses: 2+: carotid (R), carotid (L) Abdomen: non-tender, soft Pelvic Exam: deferred Rectal: deferred Skin: warm/dry Lymphatic: no adenopathy Extremities: non-tender Neuro/Psych: alert, oriented x 3 ICD10 Worksheet Patient Problems: Problems Problem Status Onset Acute blood loss anemia Acute Aortic stenosis Acute S/P aortic valve repair Acute S/P mitral valve replacement with bioprosthetic valve Acute S/P tricuspid valve repair Acute Tricuspid insufficiency Acute Mitral stenosis Acute Symptomatic anemia Acute
[2017-12-17] MEDS: VERAPAMIL 40 MG TAB PO SCH (20:34)
[2017-12-17] MEDS: ATORVASTATIN CALCIUM 10 MG TAB PO SCH (20:38)
[2017-12-17] MEDS: FERROUS SULFATE 325 MG TAB PO SCH (20:38)
[2017-12-17] MEDS: CLOPIDOGREL BISULFATE 75 MG TAB PO SCH (20:38)
[2017-12-18 04:49] LABS: INR 3.93 (0.83-1.16); PROTIME(PATIENT) 38.1 SEC (12.0-15.0)
[2017-12-18] MEDS ORDERED: POTASSIUM CL 20 MEQ TAB PO ONE (06:46)
--- NOTE | 2017-12-18 06:51 | SOAPPROG ---
SOAP Progress Note Assessment/Plan: POD #16: Debridement of mitral valve and replacement with #25 Hernandez Magna bioprosthesis, tricuspid valve annuloplasty with #28 Hernandez MC3 ring, aortic valve debridement POD #10: TAVR with #26 Medtronic Evolut POD #10: PPM implantation POD #10: Left thoracentesis (300 cc) POD #4: Right thoracentesis (600 cc) POD #3: Left thoracentesis (400 cc) LOIDA, pre-renal - Resolved Bilateral pleural effusions - Continue diuresis, drain as needed Severe MS s/p debridement/replacement - Coumadin with INR goal 2-3, duration 3 months Severe TR s/p annuloplasty - Mgmt as per MVR Moderate s/p debridement with post-op severe AI s/p TAVR - Mgmt as per MVR Acute blood loss anemia with coagulopathy - See blood bank section for details Chronic class IV valvular CHF with diastolic dysfunction - HF meds when appropriate Post-op rhythm/conduction issues -s/p PPM - Continue amiodarone/CCB for paroxysmal AFib/Flutter - Medically cardioverted CAD with 06/2017 LAD stent - Plavix for 1 year (06/2018) as per cardiology - bleeding risk while on Coumadin discussed - BB/statin for secondary prevention when appropriate VT prophylaxis - Coumadin/SCDs Disposition - SNF when medically stable Subjective: Denies pain/SOB. Objective: Vital Signs Temp Pulse Resp BP Pulse Ox 36.8 C 92 14 113/52 L 93 12/18/17 03:23 12/18/17 03:23 12/18/17 03:23 12/18/17 03:23 12/18/17 03:23 Laboratory Results 12/17/17 04:15 12/18/17 04:20 12/17/17 12/18/17 12/19/17 05:59 05:59 05:59 Intake Total 900 900 Output Total 1350 2000 Balance -450 -1100 PT 38.1 SEC (12.0-15.0) H 12/18/17 04:20 INR 3.93 (0.83-1.16) H 12/18/17 04:20 Physical Exam - Physical Exam General Appearance: alert, no apparent distress, obese EENT: No scleral icterus (R), No scleral icterus (L) Neck: normal inspection Respiratory: No respiratory distress Cardiac/Chest: regular rate, rhythm Abdomen: non-tender, soft, No distended Skin: normal color, warm/dry Extremities: pedal edema Neuro/Psych: no motor/sensory deficits, alert, normal mood/affect, oriented x 3 ICD10 Worksheet Patient Problems: Problems Problem Status Onset Acute blood loss anemia Acute Aortic stenosis Acute S/P aortic valve repair Acute S/P mitral valve replacement with bioprosthetic valve Acute S/P tricuspid valve repair Acute Tricuspid insufficiency Acute Mitral stenosis Acute Symptomatic anemia Acute
[2017-12-18] MEDS ORDERED: LIDOCAINE 2% VISCOUS 15 ML UDCUP PO PRN (07:30)
[2017-12-18] MEDS: VERAPAMIL 40 MG TAB PO SCH ×2 (08:22→21:24)
[2017-12-18] MEDS: AMIODARONE HCL 200 MG TAB PO SCH ×2 (08:22→21:28)
[2017-12-18] MEDS: CHOLECALCIFEROL VIT D3 1,000 UNITS TAB PO SCH (08:22)
[2017-12-18] MEDS: NIACIN ER 500 MG TAB.ER PO SCH ×2 (08:22→21:28)
[2017-12-18] MEDS: OMEGA-3 FATTY ACIDS 1,000 MG CAP PO SCH (08:22)
[2017-12-18] MEDS: PANTOPRAZOLE SODIUM 40 MG TAB PO SCH ×2 (08:22→21:28)
[2017-12-18] MEDS: FUROSEMIDE 100 MG/10 ML VIAL IVP SCH ×2 (08:22→14:24)
[2017-12-18] MEDS: METOLAZONE 5 MG TAB PO SCH (08:28)
[2017-12-18] MEDS: DIGOXIN 125 MCG TAB PO SCH (08:28)
[2017-12-18] MEDS: POTASSIUM CL 20 MEQ TAB PO SCH ×2 (08:31→21:28)
--- NOTE | 2017-12-18 09:07 | SOAPPROG ---
BREA Progress Note Assessment/Plan: Assessment: 82-year-old female with a complex and recent cardiovascular history as described previously. She has had at least a week of rate controlled atrial fibrillation. During her cardiac surgery she did not undergo a [place] 4 procedure. Earlier she developed tachycardia likely a result of conversion from atrial fibrillation to atrial flutter. Fortunately, she appears to be tolerating this arrhythmia without clinical decompensation. Her blood pressures are a little on the low side however are concordant with her hemodynamics over the last several weeks. Her INR is therapeutic. Fortunately, she has reverted back to sinus rhythm. She continues to appear modestly volume overloaded with bilateral pleural effusions and lower extremity edema. I wonder if some of this might be in part contributed to by post pericardiotomy inflammatory syndrome. Plan: 1. Consider instituting colchicine 0.6 mg twice daily. 2. Continue current therapy with amiodarone, low-dose digoxin and verapamil. 3. I think it is safe at this point to restart her diuretic therapy. 4. We will sign off for now. 12/18/17 09:08 Subjective: She appears to be doing well today. She notes that she is still a little bit weak. She denies symptoms of dyspnea. She notes no anginal quality chest discomfort. During the evening, she reverted back to sinus rhythm. Objective: Vital Signs Temp Pulse Resp BP Pulse Ox 36.6 C 93 18 111/51 L 94 12/18/17 07:18 12/18/17 07:18 12/18/17 07:18 12/18/17 07:18 12/18/17 07:18 Laboratory Results 12/17/17 04:15 12/18/17 04:20 12/17/17 12/18/17 12/19/17 05:59 05:59 05:59 Intake Total 900 900 Output Total 1350 2000 Balance -450 -1100 PT 38.1 SEC (12.0-15.0) H 12/18/17 04:20 INR 3.93 (0.83-1.16) H 12/18/17 04:20 Laboratory Tests 12/17/17 12/18/17 04:15 04:20 WBC 11.98 H Hct 28.1 L Plt Count 257 INR 3.93 H Physical Exam - Physical Exam General Appearance: WD/WN, no apparent distress, other (wearing NC oxygen) EENT: PERRL/EOMI Neck: non-tender, full range of motion Respiratory: decreased breath sounds (at the bases), crackles (at the bases) Cardiac/Chest: regular rate, rhythm, edema (1/2" pitting to mid cabrera), JVD (mid neck at 70 degrees), systolic murmur (1/6) Peripheral Pulses: 2+: carotid (R), carotid (L) Abdomen: non-tender, soft Pelvic Exam: deferred Rectal: deferred ICD10 Worksheet Patient Problems: Problems Problem Status Onset Acute blood loss anemia Acute Aortic stenosis Acute S/P aortic valve repair Acute S/P mitral valve replacement with bioprosthetic valve Acute S/P tricuspid valve repair Acute Tricuspid insufficiency Acute Mitral stenosis Acute Symptomatic anemia Acute
--- NOTE | 2017-12-18 09:44 | ASMTCMCOM ---
CM Note CM Note Notes: 12/18/2017 Case Management Note Discussed case with JERE Rojas for Dr. Cantu. Pt likely to d/c on Thursday. Notified [facility] rehab via all scripts. [facility] Case Management to follow. Date Signed: 12/18/2017 09:43 AM Electronically Signed By:Sugar Weathers RN
[2017-12-18] MEDS ORDERED: MBX SOLN 30 ML BOTTLE PO PRN (09:45)
--- NOTE | 2017-12-18 11:51 | ECHO ---
[email or web address] [address] [address] Main: [phone] Fax: Transthoracic Echocardiogram Name: FERMIN ALFARO MR#: [id number] Study Date: 12/18/2017 Study Time: 09:17 AM Date of : 1935 Age: 82 year(s) Height: ( ) Weight: ( ) BSA: Gender: Female Examination: Limited Echo Indication: limited echo to r/o pericardial effusion Image Quality: Contrast: Requested by: Brandon Garcia BP: / Heart Rate: Rhythm: Indication: limited echo to r/o pericardial effusion Procedure Staff Car Coupler: Milena Hines [facility] Reading Physician: Alexis Butt MD Requesting Provider: Conclusions: Small pericardial effusion noted mainly around left ventricle. No evidence of hemodynamic compromise. Measurements: Chambers Valvular Assessment AV/MV Valvular Assessment TV/PV Normal Normal Normal Name Value Range Name Value Range Name Value Range Continued Measurements: Findings: Exam Comments: Small pericardial effusion noted mainly around left ventricle. (No Signature Object) Patient: FERMIN ALFARO Study Date: 12/18/2017 Page 1 of 1 09:17 AM [id number]
[2017-12-18] MEDS: COLCHICINE 0.6 MG CAP/TAB PO SCH (12:16)
--- NOTE | 2017-12-18 21:05 | SOAPPROG ---
SOAP Progress Note Assessment/Plan: Assessment: Edema, likely due to low albumen. Low blood pressure likely due to low intravascular volume. Probable thrush with angular stomatitis. Plan: Clotrimazole trinity, suck on lozenge 5 times a day. Check albumen in AM and replace if low. Nystatin triamcinalone to angular stomatitis. 12/06/17 19:52 12/18/17 21:03 Subjective: Cannot eat because the angle of her lip on the R side is too painful. She also has a sore throat an d tongue. She had some thrush post op however nustatin was discontinued at a time past. Able to walk to the bathroom however her blood pressure is very low, likely to volume depletion despite her edema which is likely due to hypoalbuminemia. Objective: Vital Signs Temp Pulse Resp BP Pulse Ox 98.1 F 91 14 101/52 L 92 12/18/17 20:00 12/18/17 20:00 12/18/17 20:00 12/18/17 20:00 12/18/17 20:00 Laboratory Results 12/17/17 04:15 12/18/17 04:20 12/17/17 12/18/17 12/19/17 05:59 05:59 05:59 Intake Total 900 900 402 Output Total 1350 2000 2800 Balance -450 -1100 -2398 PT 38.1 SEC (12.0-15.0) H 12/18/17 04:20 INR 3.93 (0.83-1.16) H 12/18/17 04:20 ICD10 Worksheet Patient Problems: Problems Problem Status Onset Acute blood loss anemia Acute Aortic stenosis Acute S/P aortic valve repair Acute S/P mitral valve replacement with bioprosthetic valve Acute S/P tricuspid valve repair Acute Tricuspid insufficiency Acute Mitral stenosis Acute Symptomatic anemia Acute
[2017-12-18] MEDS: ATORVASTATIN CALCIUM 10 MG TAB PO SCH (21:28)
[2017-12-18] MEDS: CLOPIDOGREL BISULFATE 75 MG TAB PO SCH (21:28)
[2017-12-18] MEDS: FERROUS SULFATE 325 MG TAB PO SCH (21:28)
[2017-12-19] MEDS: CLOTRIMAZOLE 10 MG TROCHE PO SCH ×6 (01:12→20:38)
[2017-12-19] MEDS: NYSTATIN TP SCH ×4 (01:13→20:40)
[2017-12-19] MEDS: TRIAMCINOLONE TP SCH ×4 (01:13→20:40)
[2017-12-19 05:37] LABS: INR 4.16 (0.83-1.16); PROTIME(PATIENT) 39.8 SEC (12.0-15.0)
[2017-12-19] MEDS ORDERED: POTASSIUM CL 20 MEQ TAB PO SCH ×3 (07:15→16:00)
--- NOTE | 2017-12-19 07:18 | SOAPPROG ---
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 LFTs checked and relatively normal. ECHO checked with out evidence of pericardial effusion. Coagulopathy likely from poor nutritional status. Will encourage PO intake. Post-op rhythm/conduction issues -s/p PPM - Continue amiodarone/BB for paroxysmal AFib/Flutter - Coumadin for AC CAD with 06/2017 LAD stent - Plavix for 1 year (06/2018) as per cardiology - bleeding risk while on Coumadin discussed - BB/statin for secondary prevention when appropriate VT prophylaxis - Coumadin/SCDs Disposition - SNF when medically stable Subjective: Feeling better today. Denies pain/SOB. Has been walking. Objective: Vital Signs Temp Pulse Resp BP Pulse Ox 36.7 C 90 12 104/56 L 96 12/19/17 04:00 12/19/17 04:00 12/19/17 04:00 12/19/17 04:00 12/19/17 04:00 Laboratory Results 12/19/17 04:58 12/19/17 04:58 12/18/17 12/19/17 12/20/17 05:59 05:59 05:59 Intake Total 900 802 Output Total 2000 3150 Balance -1100 -2348 PT 39.8 SEC (12.0-15.0) H 12/19/17 04:58 INR 4.16 (0.83-1.16) H 12/19/17 04:58 Physical Exam - Physical Exam General Appearance: alert, no apparent distress EENT: No scleral icterus (R), No scleral icterus (L) Neck: normal inspection Respiratory: No respiratory distress Cardiac/Chest: regular rate, rhythm Abdomen: non-tender, soft, No distended Skin: normal color, warm/dry Extremities: pedal edema Neuro/Psych: no motor/sensory deficits, alert, normal mood/affect, oriented x 3 ICD10 Worksheet Patient Problems: Problems Problem Status Onset Acute blood loss anemia Acute Aortic stenosis Acute S/P aortic valve repair Acute S/P mitral valve replacement with bioprosthetic valve Acute S/P tricuspid valve repair Acute Tricuspid insufficiency Acute Mitral stenosis Acute Symptomatic anemia Acute
[2017-12-19] MEDS ORDERED: POTASSIUM CL 20 MEQ/15 ML UDCUP PO SCH (08:17)
[2017-12-19] MEDS: FUROSEMIDE 100 MG/10 ML VIAL IVP SCH (08:51)
[2017-12-19] MEDS: METOLAZONE 5 MG TAB PO SCH (08:51)
[2017-12-19] MEDS: PANTOPRAZOLE SODIUM 40 MG TAB PO SCH ×2 (08:52→20:38)
[2017-12-19] MEDS: NIACIN ER 500 MG TAB.ER PO SCH ×2 (08:52→21:14)
[2017-12-19] MEDS: COLCHICINE 0.6 MG CAP/TAB PO SCH (08:52)
[2017-12-19] MEDS: METOPROLOL TARTRATE 25 MG TAB PO SCH ×2 (08:52→21:14)
[2017-12-19] MEDS: AMIODARONE HCL 200 MG TAB PO SCH ×2 (08:52→20:38)
[2017-12-19] MEDS: OMEGA-3 FATTY ACIDS 1,000 MG CAP PO SCH (09:02)
[2017-12-19] MEDS: CHOLECALCIFEROL VIT D3 1,000 UNITS TAB PO SCH (09:04)
[2017-12-19] MEDS: DIGOXIN 125 MCG TAB PO SCH (09:05)
[2017-12-19] MEDS ORDERED: POTASSIUM Cl (KCl) 100 ML IV SCH (09:30)
[2017-12-19] MEDS: POTASSIUM Cl (KCl) 10 MEQ in NS 100 ML IV SCH ×2 (09:33→11:34)
[2017-12-19] MEDS ORDERED: POTASSIUM CL 10 MEQ TAB PO ONE (12:30)
[2017-12-19] MEDS ORDERED: POTASSIUM CL 20 MEQ TAB PO ONE ×2 (13:00→22:20)
[2017-12-19] MEDS: SENNOSIDES/DOCUSATE SODIUM TAB PO PRN (14:02)
--- NOTE | 2017-12-19 18:31 | SOAPPROG ---
SOAP Progress Note Assessment/Plan: Assessment: Edema, partially due to low albumen, PAH may be playing a roll. Low blood pressure likely related to to low L sided intravascular volume. Probable thrush with angular stomatitis. Plan: Clotrimazole trinity, suck on lozenge 5 times a day. Check albumen in AM and replace if low. Nystatin triamcinolone to angular stomatitis. Will hold next dose of torsemide. Allow straws unless contraindicated. 12/06/17 19:52 12/18/17 21:03 12/19/17 18:30 Subjective: Still having soreness around corner of mouth. However able to eat today. Objective: Vital Signs Temp Pulse Resp BP Pulse Ox 98.1 F 90 16 94/46 L 97 12/19/17 15:10 12/19/17 15:10 12/19/17 15:10 12/19/17 15:10 12/19/17 15:10 Laboratory Results 12/19/17 04:58 12/19/17 04:58 12/18/17 12/19/17 12/20/17 05:59 05:59 05:59 Intake Total 150 685 1788 Output Total 2000 3150 1400 Balance -1100 -2348 -400 PT 39.8 SEC (12.0-15.0) H 12/19/17 04:58 INR 4.16 (0.83-1.16) H 12/19/17 04:58 Blood pressure is too low and K+ remains a challenge. I am concerned that her diuresis has been a bit aggressive over the last 4 days. ICD10 Worksheet Patient Problems: Problems Problem Status Onset Acute blood loss anemia Acute Aortic stenosis Acute S/P aortic valve repair Acute S/P mitral valve replacement with bioprosthetic valve Acute S/P tricuspid valve repair Acute Tricuspid insufficiency Acute Mitral stenosis Acute Symptomatic anemia Acute
[2017-12-19] MEDS ORDERED: MAGNESIUM SULF 2 GM/WATER 50 ML IV ONE (20:17)
[2017-12-19] MEDS: ATORVASTATIN CALCIUM 10 MG TAB PO SCH (20:38)
[2017-12-19] MEDS: CLOPIDOGREL BISULFATE 75 MG TAB PO SCH (20:38)
[2017-12-19] MEDS: FERROUS SULFATE 325 MG TAB PO SCH (21:14)
[2017-12-20 04:29] LABS: INR 3.66 (0.83-1.16); PROTIME(PATIENT) 36.1 SEC (12.0-15.0)
[2017-12-20] MEDS: CLOTRIMAZOLE 10 MG TROCHE PO SCH ×5 (05:44→23:34)
--- NOTE | 2017-12-20 06:33 | SOAPPROG ---
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 ECHO checked with out evidence of pericardial effusion. Coagulopathy likely from poor nutritional status. Will encourage PO intake. Post-op rhythm/conduction issues -s/p PPM - Continue amiodarone/BB for paroxysmal AFib/Flutter - Coumadin for AC CAD with 06/2017 LAD stent - Plavix for 1 year (06/2018) as per cardiology - bleeding risk while on Coumadin discussed - BB/statin for secondary prevention when appropriate VT prophylaxis - Coumadin/SCDs Disposition - [facility] Thursday Subjective: Mouth pain improving. Denies SOB. Objective: Vital Signs Temp Pulse Resp BP Pulse Ox 36.7 C 87 14 100/56 L 94 12/20/17 04:00 12/20/17 04:00 12/20/17 04:00 12/20/17 04:00 12/20/17 04:00 Laboratory Results 12/19/17 04:58 12/20/17 04:02 12/19/17 12/20/17 12/21/17 05:59 05:59 05:59 Intake Total 802 1675 Output Total 3150 1850 Balance -2348 -175 PT 36.1 SEC (12.0-15.0) H 12/20/17 04:02 INR 3.66 (0.83-1.16) H 12/20/17 04:02 Physical Exam - Physical Exam General Appearance: WD/WN, alert, no apparent distress EENT: No scleral icterus (R), No scleral icterus (L) Neck: normal inspection Respiratory: No respiratory distress Cardiac/Chest: regular rate, rhythm Abdomen: non-tender, soft, No distended Skin: normal color, warm/dry Extremities: pedal edema Neuro/Psych: no motor/sensory deficits, alert, normal mood/affect, oriented x 3 ICD10 Worksheet Patient Problems: Problems Problem Status Onset Acute blood loss anemia Acute Aortic stenosis Acute S/P aortic valve repair Acute S/P mitral valve replacement with bioprosthetic valve Acute S/P tricuspid valve repair Acute Tricuspid insufficiency Acute Mitral stenosis Acute Symptomatic anemia Acute
[2017-12-20] MEDS ORDERED: POTASSIUM CL 20 MEQ TAB PO ONE (06:34)
[2017-12-20] MEDS ORDERED: SPIRONOLACTONE 25 MG TAB PO SCH (09:00)
[2017-12-20] MEDS: AMIODARONE HCL 200 MG TAB PO SCH ×2 (09:05→19:39)
[2017-12-20] MEDS: DIGOXIN 125 MCG TAB PO SCH (09:05)
[2017-12-20] MEDS: COLCHICINE 0.6 MG CAP/TAB PO SCH (09:05)
[2017-12-20] MEDS: PANTOPRAZOLE SODIUM 40 MG TAB PO SCH ×2 (09:05→19:38)
[2017-12-20] MEDS: CHOLECALCIFEROL VIT D3 1,000 UNITS TAB PO SCH (09:13)
[2017-12-20] MEDS: METOPROLOL TARTRATE 25 MG TAB PO SCH (09:13)
[2017-12-20] MEDS: NIACIN ER 500 MG TAB.ER PO SCH ×2 (09:13→19:38)
[2017-12-20] MEDS: TRIAMCINOLONE TP SCH ×3 (09:14→19:39)
[2017-12-20] MEDS: NYSTATIN TP SCH ×3 (09:14→19:39)
[2017-12-20] MEDS: OMEGA-3 FATTY ACIDS 1,000 MG CAP PO SCH (09:14)
[2017-12-20] MEDS ORDERED: TORSEMIDE 20 MG TAB PO SCH (10:00)
[2017-12-20] MEDS ORDERED: ALBUMIN 5% 500 ML IV ONE (15:52)
[2017-12-20] MEDS: ATORVASTATIN CALCIUM 10 MG TAB PO SCH (19:39)
[2017-12-20] MEDS: CLOPIDOGREL BISULFATE 75 MG TAB PO SCH (19:39)
[2017-12-20] MEDS: FERROUS SULFATE 325 MG TAB PO SCH (19:39)
[2017-12-21] MEDS: CLOTRIMAZOLE 10 MG TROCHE PO SCH ×3 (06:19→14:06)
[2017-12-21 06:24] LABS: INR 1.93 (0.83-1.16); PROTIME(PATIENT) 22.1 SEC (12.0-15.0)
--- NOTE | 2017-12-21 07:03 | SOAPPROG ---
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 ECHO checked with out evidence of pericardial effusion. Coagulopathy likely from poor nutritional status. Will encourage PO intake. Post-op rhythm/conduction issues -s/p PPM - Continue amiodarone/BB for paroxysmal AFib/Flutter - Coumadin for AC CAD with 06/2017 LAD stent - Plavix for 1 year (06/2018) as per cardiology - bleeding risk while on Coumadin discussed - BB/statin for secondary prevention when appropriate VT prophylaxis - Coumadin/SCDs Disposition - [facility] Thursday Subjective: Happy to be leaving today. Denies pain/SOB. Objective: Vital Signs Temp Pulse Resp BP Pulse Ox 36.5 C 84 16 105/56 L 92 12/21/17 03:30 12/21/17 03:30 12/21/17 03:30 12/21/17 03:30 12/21/17 03:30 Laboratory Results 12/19/17 04:58 12/21/17 03:24 12/20/17 12/21/17 12/22/17 05:59 05:59 05:59 Intake Total 1675 1250 Output Total 1850 1100 100 Balance -175 150 -100 PT 22.1 SEC (12.0-15.0) H 12/21/17 03:24 INR 1.93 (0.83-1.16) H 12/21/17 03:24 Physical Exam - Physical Exam General Appearance: WD/WN, alert, no apparent distress EENT: No scleral icterus (R), No scleral icterus (L) Neck: normal inspection Respiratory: No respiratory distress Cardiac/Chest: regular rate, rhythm Abdomen: non-tender, soft, No distended Skin: normal color, warm/dry Extremities: pedal edema Neuro/Psych: no motor/sensory deficits, alert, normal mood/affect, oriented x 3 ICD10 Worksheet Patient Problems: Problems Problem Status Onset Acute blood loss anemia Acute Aortic stenosis Acute S/P aortic valve repair Acute S/P mitral valve replacement with bioprosthetic valve Acute S/P tricuspid valve repair Acute Tricuspid insufficiency Acute Mitral stenosis Acute Symptomatic anemia Acute
[2017-12-21] MEDS: AMIODARONE HCL 200 MG TAB PO SCH (09:03)
[2017-12-21] MEDS: COLCHICINE 0.6 MG CAP/TAB PO SCH (09:03)
[2017-12-21] MEDS: PANTOPRAZOLE SODIUM 40 MG TAB PO SCH (09:03)
[2017-12-21] MEDS: DIGOXIN 125 MCG TAB PO SCH (09:03)
[2017-12-21] MEDS: NIACIN ER 500 MG TAB.ER PO SCH (09:04)
[2017-12-21] MEDS: NYSTATIN TP SCH (09:04)
[2017-12-21] MEDS: CHOLECALCIFEROL VIT D3 1,000 UNITS TAB PO SCH (09:04)
[2017-12-21] MEDS: TRIAMCINOLONE TP SCH (09:04)
[2017-12-21] MEDS: OMEGA-3 FATTY ACIDS 1,000 MG CAP PO SCH (09:05)
[2017-12-21] MEDS ORDERED: FUROSEMIDE 40 MG TAB PO SCH (09:57)
[2017-12-21] MEDS ORDERED: POTASSIUM CL 20 MEQ TAB PO SCH (10:00)
--- NOTE | 2017-12-21 10:39 | PDIAF ---
- Diagnosis Diagnosis: s/p MV replacment, TVA, TAVR, PPM Code Status: Full Code - Medication Management Discharge Medications: Medications to Continue on Transfer Aspirin [Aspirin 81mg (*)] 81 mg PO DAILY 08/27/17 [Last Taken 12/01/17] Clopidogrel Bisulfate [Plavix (*)] 75 mg PO HS 08/27/17 [Last Taken 11/26/17] Herbals/Supplements -Info Only 1 ea PO DAILY 08/27/17 [Last Taken Unknown] Niacin ER [Niaspan 500 mg (*)] 500 mg PO BID 08/27/17 [Last Taken 11/26/17] [place]-3 Fatty Acids [Fish Oil 1000 mg (*)] 1,000 mg PO DAILY 08/27/17 [Last Taken 12/01/17] Cholecalciferol Vit D3 [Vitamin D3 (*)] 1,000 units PO DAILY 10/29/17 [Last Taken 11/26/17] Pantoprazole Sodium [Protonix 40mg (*)] 40 mg PO BID 10/29/17 [Last Taken ] Simvastatin [Zocor] 20 mg PO HS 10/29/17 [Last Taken 11/01/17] Acetaminophen [Tylenol 325mg (*)] 650 mg PO QID PRN tab 11/04/17 [Last Taken Unknown] Ferrous Sulfate [Ferrous Sulf 325 MG (*)] 325 mg PO HS tab 11/04/17 [Last Taken Unknown] Amiodarone HCl [Pacerone (*)] 200 mg PO BID tab 12/21/17 [Last Taken Unknown] Clotrimazole [Mycelex (*)] 10 mg PO 5XD trinity 12/21/17 [Last Taken Unknown] Colchicine [Colchicine (*)] 0.6 mg PO DAILY ea 12/21/17 [Last Taken Unknown] Digoxin [Lanoxin 125 mcg (RX)] 125 mcg PO DAILY AT 10AM tab 12/21/17 [Last Taken Unknown] Furosemide [Lasix 40 MG (*)] 40 mg PO DAILY tab 12/21/17 [Last Taken Unknown] Nystatin/Triamcin [Mycolog II Ointment] 1 gianfranco TP TID oint 12/21/17 [Last Taken Unknown] Potassium Cl [Klor-Con 20 meq (*)] 20 meq PO DAILY tab 12/21/17 [Last Taken Unknown] Discharge Medications: Refer to the Discharge Home Medication list for PRN reason. PICC Care - Routine: N/A - Orders Services needed: Registered Nurse, Certified Statistical Reporting Analyst, Master Fleet Mechanic , Physical Therapy, Occupational Therapy Isolation Type: None Oxygen: 0.5 l/min via nasal cannula, continuous Diet Recommendation: cardiac -low fat low salt, fluid restriction (use comment for amount) (2 liters per day) Diet Texture: Regular Texture Diet, Thin Liquids, Meds Whole w/Liquids Weigh Patient: daily Shannon: No Additional Instructions: Discharge Instructions: Call [facility] cardiac rehab to enroll in phase 2 classes if not already arranged. Sternal precautions x 4 weeks. Avoid lifting > 10lbs with an outstretched arm. Avoid push/pull activities. No driving until cleared by surgery. Elevate low legs at rest. Avoid prolonged standing or dangling. Cleanse wounds once daily with soap and water. Avoid immersion (pool, hot tub, bath) until scabs off. Ok to leave all wounds open to air. Avoid creams or ointments until scabs fall off. Log daily vital signs once home: weight, heart rate, blood pressure, and pulse oximetry if on oxygen. Call Somewhere for overnight weight gain > 2lbs, weekly gain > 5lbs or worsening leg swelling. Call Somewhere for resting heart rate > 120 OR for systolic blood pressure consistently < 90 or > 140. Target oxygen saturation > 89%. Ok to use [id number] medications for bowel function. Chest x-ray Instructions: Please obtain a chest xray prior to surgical appointment. Chest x-rays dont require an appointment. Come to the Emergency Room entrance at the [facility] location. Sign in at the computer kiosk in the entryway. You will be given a number and may sit in the waiting area until called. You will be registered and directed to the Imaging desk on the 1st floor. This process can take up to an hour. Make sure you allow enough time before your appointment to have your x-ray taken. - Labs/Radiology Imaging Orders: CXR at [facility] day of surgical follow-up - Follow Up Care Current Providers and Referrals: Paul Cheng MD [Primary Care Provider] - Jf Cantu DO [Doctor of Osteopathy] - 12/26/17 12:00 pm Juvencio Taveras MD [Medical Doctor] -
--- NOTE | 2017-12-21 11:12 | PDDCSUM ---
Discharge Summary Discharge Summary: ADMISSION DATE: 12/02/17 DISCHARGE DATE: 12/21/17 DISCHARGE DIAGNOSES 1. Severe mitral stenosis 2. Severe tricuspid valve regurgitation 3. Moderate aortic stenosis 4. 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 CAD with recent LAD stent placement 6. Postoperative severe aortic insufficiency 7. Postoperative bilateral pleural effusions 8. Postoperative acute blood loss anemia with coagulopathy 9. Postoperative rhythm issues 10. Postoperative kidney injury PROCEDURES 12/02/17, Jf Cantu: 1. Debridement of mitral valve and replacement with #25 Magna bioprosthesis, tricuspid valve annuloplasty with #28 Hernandez MC3 ring, aortic valve debridement 12/08/17, Tio Avila: 1. TAVR with #26 Medtronic Evolut 12/08/17, Edward Torres: 2. PPM implantation HOSPITAL COURSE BY PROBLEM LIST 1. Severe mitral stenosis - s/p MV replacement with bioprothesis. AC with Plavix /ASA. 2. Severe tricuspid valve regurgitation - s/p repair. AC with Plavix/ASA. 3. Moderate aortic stenosis - debrided with post-operative severe AI requiring TAVR. AC with Plavix/ASA. 4. 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 Beta-michele avoided d/t low BP. 5. CAD with recent LAD stent placement - continue Plavix/ASA/statin. Beta- michele avoided d/t low BP. 6. Postoperative bilateral pleural effusions - effusions drained multiple times with stable CXR and pulmonary status. 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 7. Postoperative acute blood loss anemia with coagulopathy - stable s/p 3 units PRBCs and 1 unit platelets. 8. Postoperative rhythm issues - s/p PPM. Continue amiodarone. Beta-michele avoided d/t low BP. AC with Plavix/ASA. 9. Postoperative kidney injury - resolution with supportive care. CONDITION Fair DISPOSITION [facility] ACTIVITY Pt was instructed on sternal precautions, activity limitations, and which problems to call [facility] with. Please see Discharge Plan and Interagency Discharge Form in chart for specifics. DISCHARGE MEDICATIONS Continue: Acetaminophen [Tylenol 325mg (*)] 650 mg PO QID PRN Ferrous Sulfate [Ferrous Sulf 325 MG (*)] 325 mg PO HS Aspirin [Aspirin 81mg (*)] 81 mg PO DAILY Clopidogrel Bisulfate [Plavix (*)] 75 mg PO HS Herbals/Supplements -Info Only 1 ea PO DAILY Niacin ER [Niaspan 500 mg (*)] 500 mg PO BID [place]-3 Fatty Acids [Fish Oil 1000 mg (*)] 1,000 mg PO DAILY Cholecalciferol Vit D3 [Vitamin D3 (*)] 1,000 units PO DAILY Pantoprazole Sodium [Protonix 40mg (*)] 40 mg PO BID Simvastatin [Zocor] 20 mg PO HS New: Amiodarone HCl [Pacerone (*)] 200 mg PO BID Clotrimazole [Mycelex (*)] 10 mg PO 5XD Colchicine [Colchicine (*)] 0.6 mg PO DAILY Digoxin [Lanoxin 125 mcg (RX)] 125 mcg PO DAILY AT 10AM Furosemide [Lasix 40 MG (*)] 40 mg PO DAILY Nystatin/Triamcin [Mycolog II Ointment] 1 gianfranco TP TID Potassium Cl [Klor-Con 20 meq (*)] 20 meq PO DAILY Stop: Metoprolol, Spironolactone PENDING STUDIES/LABS 1. CXR prior to surgical follow-up FOLLOW-UP 1. Jf Cantu, 12/26/17, 12:00 PM
[2017-12-21 11:40] VITALS: BP 119/61
--- NOTE | 2017-12-21 15:23 | ASDISCHSUM ---
Discharge Information Plan Status:SNF Medically Cleared to Leave:12/21/2017 Discharge Date:12/21/2017 02:57 PM CM D/C Disposition:[facility] Facility ADT D/C Disposition:[facility] Facility Projected Discharge Date:12/21/2017 11:00 AM Transportation at D/C:Wheelchair Van Discharge Delay Reason: Follow-Up Date:12/21/2017 11:00 AM Discharge Slot: Final Diagnosis: Placement Information Referral Type:*Detention/SNF Referral ID:[id number] Provider Name:[facility] Address 1:[address] Address 2: City:[place] Selection Factors: State:[place] Patient Contact Information Contact Name:ENMA Relationship:Life Partner Address:[address] Work Phone: [facility]:[place] Alternate Phone: [facility]/Zip Code:[place] [address] Email: Financial Information Financial Class:Medicare Primary Plan Desc:MEDICARE OUTPATIENT Primary Plan Number:[id number] Secondary Plan Desc:MELQUIADESP/MDR SUPPLEMENT Secondary Plan Number:[id number] Assessment Information LACE LACE Length of stay for Answers: 7-13 days current admission Acuity / Level of Answers: Yes Care: Did the patient have an inpatient admission? Comorbidities - select Answers: Any tumor (including all that apply lymphoma or leukemia) Congestive heart failure Coronary Artery Disease Other Notes: HTN # of Emergency department Answers: 0 visits in the last 6 months Social determinants Answers: Mental health diagnosis (anxiety, depression, pers onality disorders, etc.) Score: 18 Date Signed: 12/10/2017 02:58 PM Electronically Signed By:Veronica De La O [facility] Initial CM Assessment Living Arrangements What is your living Answers: With Partner arrangement? Who do you live with? Type Of Residence What kind of residence do Answers: House you live in? Discharge Plan Comments Coordination Status Comments Notes: Patient is an 82yo female with a life partner (Wilton) who was admitted for mitral valve replacement, tricuspid annuloplasty, and aortic valve repair with extensive debridement. OT/PT have been ordered. D/C plan TBD. CM will follow. Date Signed: 12/03/2017 11:38 AM Electronically Signed By:Ebony Caraballo LCSW [facility] CM Progress Note CM Note CM Note Notes: PT is recommending home with no further services. Patient may stay in a hotel for 1 week prior to returning to [place], [place]. CM available if d/c needs arise. Date Signed: 12/04/2017 02:20 PM Electronically Signed By:Ebony Caraballo LCSW [facility] CM Progress Note CM Note CM Note Notes: Met with and daughter, who were concerned about patient having another surgery. They were wondering which procedure had the most longevity CABG vs TAVR. Patient and are from [place]. Gave him a list of [facility] Facilities in the [place] area. He is looking into where he can stay while in Rehab. [place] may be less expensive than [place]. Date Signed: 12/07/2017 12:14 PM Electronically Signed By:Mari Lal LCSW [facility] CM Progress Note CM Note CM Note Notes: Met with patient and to discuss SNF referrals. They requested referrals to [facility] [place], [facility], and [facility]. I sent them all and encouraged to visit. Per , (per Dr Cantu) patient will likely discharge December 14. Case Management will follow. Date Signed: 12/09/2017 11:05 AM Electronically Signed By:Nakia Hanley RN [facility] CM Progress Note CM Note CM Note Notes: 12/10/2017 Case Management Note Met w/pt and life partner since 1976 Wilton Puri [phone]. Wilton toured 3 facilities yesterday with his daughter. Family has chosen [facility]. Faxed updates to [facility]. [facility] to follow. Date Signed: 12/10/2017 02:37 PM Electronically Signed By:Sugar Weathers RN [facility] CM Progress Note CM Note CM Note Notes: 12/11/2017 Case Management Note Discussed case with Dr. Cantu. Pt likely to d/c on Thursday to [facility] rehab. [facility] Case Management to follow. Date Signed: 12/11/2017 12:27 PM Electronically Signed By:Sugar Weathers RN [facility] CM Progress Note CM Note CM Note Notes: 12/14/2017 Case Management Note Pt is post op day # 6 s/p TAVR. Per MD note pt to have US guided rt thoracentesis by IR. PT is recommending [facility] rehab. Faxed updates to [facility]. Case Management d/c poc: to [facility] D/C date is unclear at this time. Case Management will continue to follow. Date Signed: 12/14/2017 10:30 AM Electronically Signed By:Sugar Weathers RN [facility] CM Progress Note CM Note CM Note Notes: Angelica from [facility] here today to visit with patient. She may need a cardioversion d/t post-operative conduction issues (she is POD #9 PPM placement). Discharge plan remains [facility] when medically stable. Case Management will follow. Date Signed: 12/17/2017 12:38 PM Electronically Signed By:Nakia Hanley RN [facility] CM Progress Note CM Note CM Note Notes: 12/18/2017 Case Management Note Discussed case with JERE Rojas for Dr. Cantu. Pt likely to d/c on Thursday. Notified [facility] via [facility]. Case Management d/c poc: remains [facility] Case Management to follow. Date Signed: 12/18/2017 09:43 AM Electronically Signed By:Sugar Weathers RN Case Management Discharge Plan Note Case Management Discharge Discharge Order Complete? Answers: Yes Patient to Obtain Answers: Other Notes: [facility] Medications Transportation Arranged Answers: Other Notes: arranged by [facility] Faxed Final Orders Answers: Yes Agency/Facility Transfer Answers: Yes Report Printed & Faxed to Receiving Agency Family Notified Answers: Yes Notes: in room Discharge Comments Notes: 12/21/2017 Case Management Note Pt discharged to [facility]. Faxed final orders. RN called report. Notified [facility] Heart appointment on ThursdayDecember 25 at noon. Faxed appointment info, left for Delmi at [facility] and notified via [employer]. There are no further case management needs identified. Date Signed: 12/21/2017 03:22 PM Electronically Signed By:Sugar Weathers RN Intervention Information Intervention Type:*IM-Signed Date of Service:12/21/2017 02:06 PM Patient Type:Inpatient Staff Member:Veronica De La O Hours: Discipline: Severity: Comment:
--- NOTE | 2017-12-21 15:23 | ASMTDCNOTE ---
Case Management Discharge Discharge Order Complete? Answers: Yes Patient to Obtain Answers: Other Notes: [facility] Medications Transportation Arranged Answers: Other Notes: arranged by [facility] Faxed Final Orders Answers: Yes Agency/Facility Transfer Answers: Yes Report Printed & Faxed to Receiving Agency Family Notified Answers: Yes Notes: in room Discharge Comments Notes: 12/21/2017 [facility] final [facility]. RN called report. Notified [facility] Heart appointment on ThursdayDecember 25 at noon. Faxed appointment info, left for Delmi at [facility] and notified via [employer] messaging. There are no further case management needs identified. Date Signed: 12/21/2017 03:22 PM Electronically Signed By:Sugar Weathers RN
--- NOTE | 2018-01-11 12:29 | GPROG ---
[f rep st] PROGRESS NOTE POSTANESTHESIA NOTE DATE OF SERVICE: 01/03/2018 Patient was visited in the ICU about 2:30 in the afternoon on 12/04/2017, at which point, she was eva ke, alert, extubated, requiring 2 L of oxygen by nasal cannula. She was relatively hemodynamically s table, although she was requiring AV pacing for heart block. She was having no significant pain, yasmin sea, vomiting, or other apparent anesthetic complications. Overall, she tolerated the procedure well . /[id number]/MODL
== END 2017-12-21 14:57 | DRG 220 ==
LOC: F2W 05:33 → F2N 12:41 → F2W 12-09 15:45
PROVIDERS: ADMIT Thoracic Surgery (Cardiothoracic Vascular Surgery); ATTEND Thoracic Surgery (Cardiothoracic Vascular Surgery)
PROC: 30233N1 Transfusion of Nonautologous Red Blood Cells into Peripheral Vein, Percutaneous Approach (ICD-10-PCS; 2017-12-02)
PROC: 30233R1 Transfusion of Nonautologous Platelets into Peripheral Vein, Percutaneous Approach (ICD-10-PCS; 2017-12-02)
PROC: 02UJ0JZ Supplement Tricuspid Valve with Synthetic Substitute, Open Approach (ICD-10-PCS; principal; 2017-12-02 07:15)
PROC: 02RG0JZ Replacement of Mitral Valve with Synthetic Substitute, Open Approach (ICD-10-PCS; principal; 2017-12-02 07:15)
PROC: 5A1221Z Performance of Cardiac Output, Continuous (ICD-10-PCS; principal; 2017-12-02 07:15)
PROC: B246ZZ4 Ultrasonography of Right and Left Heart, Transesophageal (ICD-10-PCS; principal; 2017-12-02 07:15)
PROC: 02QF0ZZ Repair Aortic Valve, Open Approach (ICD-10-PCS; principal; 2017-12-02 07:15)
PROC: 02RF38Z Replacement of Aortic Valve with Zooplastic Tissue, Percutaneous Approach (ICD-10-PCS; 2017-12-08)
PROC: 02HK3JZ Insertion of Pacemaker Lead into Right Ventricle, Percutaneous Approach (ICD-10-PCS; 2017-12-08)
PROC: 0JH636Z Insertion of Pacemaker, Dual Chamber into Chest Subcutaneous Tissue and Fascia, Percutaneous Approach (ICD-10-PCS; 2017-12-08)
PROC: 02H63JZ Insertion of Pacemaker Lead into Right Atrium, Percutaneous Approach (ICD-10-PCS; 2017-12-08)
PROC: 0W9B3ZX Drainage of Left Pleural Cavity, Percutaneous Approach, Diagnostic (ICD-10-PCS; 2017-12-08)
PROC: 0W993ZZ Drainage of Right Pleural Cavity, Percutaneous Approach (ICD-10-PCS; 2017-12-14)
PROC: 0W9B3ZZ Drainage of Left Pleural Cavity, Percutaneous Approach (ICD-10-PCS; 2017-12-15)
DX: I08.3 Combined rheumatic disorders of mitral, aortic and tricuspid valves (principal); D62 Acute posthemorrhagic anemia; J90 Pleural effusion, not elsewhere classified; I49.5 Sick sinus syndrome; I48.91 Unspecified atrial fibrillation; I50.30 Unspecified diastolic (congestive) heart failure; I35.1 Nonrheumatic aortic (valve) insufficiency; R73.9 Hyperglycemia, unspecified; N17.9 Acute kidney failure, unspecified; B37.0 Candidal stomatitis; G47.33 Obstructive sleep apnea (adult) (pediatric); I25.10 Atherosclerotic heart disease of native coronary artery without angina pectoris; Z79.01 Long term (current) use of anticoagulants; Z95.5 Presence of coronary angioplasty implant and graft; Z99.81 Dependence on supplemental oxygen; Z00.6 Encounter for examination for normal comparison and control in clinical research program
CPT/HCPCS: 82435-PO; 82565-PO; 82947-PO; 84132-PO; 84295-PO; 84402-90; 84481-90; 84520-PO; 85014-PO; 92526-GN; 92610-GN; 97110-GP; 97116-GP; 97162-GP; 97165-GO; 97168-GO; 97530-GO; 97530-GP; 97535-GO; C1760; C1769; C1785; C1894; C1898; G8978-GP-CI; G8978-GP-CJ; G8978-GP-CK; G8979-GP-CI; G8987-GO-CJ; G8987-GO-CL; G8988-GO-CI; G8988-GO-CJ; G8996-GN-CI; G8996-GN-CJ; G8997-GN-CH; G8997-GN-CI; G8998-GN-CI; J0153; J0282; J0330; J0690; J1100; J1160; J1265; J1450; J1644; J1815; J1885; J1940; J2001; J2150; J2250; J2260; J2270; J2370; J2405; J2704; J2720; J2765; J2930; J3010; J3430; J3475; J3480; J7060; J7613; P9016; P9021; P9035; P9041; Q9967

== ENCOUNTER → 2017-12-25 | Outpatient (CLI) | payer OTHER, MEDICARE | LOC: FIMAGING 11:24 | PROVIDERS: ATTEND Thoracic Surgery (Cardiothoracic Vascular Surgery) | DX: Z48.812 Encounter for surgical aftercare following surgery on the circulatory system (principal); Z95.2 Presence of prosthetic heart valve; Z95.0 Presence of cardiac pacemaker ==

== ENCOUNTER 2018-11-17 10:56 | Inpatient (IN) | payer OTHER, MEDICARE | END 2018-11-19 11:21 | disposition home or self-care (01) | LOC: F3E 10:56 ==

== ENCOUNTER 2018-12-04 12:38 | Inpatient (IN) | payer OTHER, MEDICARE | END 2018-12-06 14:28 | disposition home or self-care (01) | LOC: F1N 14:16 ==